=== PATIENT | female | born 1960 | race Caucasian/White ===

== ENCOUNTER 2023-02-07 15:34 | Inpatient (IN) | payer MEDICAID, SELFPAY ==
[2023-02-07] VITALS (35 sets, daily range): BP systolic 43–162; BP diastolic 31–131; PULSE 56–157; RESP 13–33; TEMP 36.8–37.4; O2SAT 87–100; BMI 24.3
--- OUTSIDE RECORDS SUMMARY | 2023-02-07 15:30 | XMS RPT_ITS | CCD ---
Author Name Unknown Address [address] [place] [address] Organization [facility] Care Team Providers Care Supervisor Of Communications Name Role Phone DESTIN CAMERON Admitting Unavailable DESTIN CAMERON Attending Unavailable NONE, NONE Primary Care Unavailable DESTIN CAMERON Consulting Unavailable NONE, NONE Consulting Unavailable RETA CISNEROS Admitting Unavailable RETA CISNEROS Attending Unavailable MERY PATEL Referring Unavailable AMELIA RETA Devon Primary Care Unavailable MERY PATEL Consulting Unavailable PROVIDER, UNKNOWN Consulting Unavailable PROVIDER, UNKNOWN Consulting Unavailable PROVIDER, UNKNOWN Consulting Unavailable SINCERE SHETTY CNP Admitting Unavailable SINCERE SHETTY CNP Attending Unavailable SINCERE SHETTY CNP Primary Care Unavailable MERY PATEL Consulting Unavailable PROVIDER, UNKNOWN Consulting Unavailable PROVIDER, UNKNOWN Consulting Unavailable PROVIDER, UNKNOWN Consulting Unavailable YONG VALENZUELA MD Admitting Unavailable YONG VALENZUELA MD Attending Unavailable YONG VALENZUELA MD Primary Care Unavailable Allergies Allergy Classification Reported Allergen(s) Allergy Type Date of Onset Reaction(s) Facility (1 source) Penicillins Drug allergy (disorder) [facility] Repository (1 source) Sulfamethoxazole / Trimethoprim Drug Allergy [facility] Repository (1 source) metal; Translations: [metal] Propensity to adverse reactions (disorder) [facility] Repository Problems Problem Classification Problem Date Documented Da te Episodic/Chronic Abdominal pain (1 source) Pelvic and perineal pain; Translations: [Pelvic and perineal pain] Onset: 11-21-2019 Chronic obstructive pulmonary disease and bronchiectasis (1 source) Chronic obstructive pulmonary disease with (acute) exacerbation; Translations: [Chronic obstructive pulmonary disease with (acute) exacerbation] Onset: 11-21-2019 Chronic Disorders of lipid metabolism (1 source) Hyperlipidemia, unspecified; Translations: [Hyperlipidemia, unspecified] Onset: 11-21-2019 Chronic Nutritional deficiencies (1 source) Vitamin D deficiency, unspecified; Translations: [Vitamin D deficiency, unspecified] Onset: 11-21-2019 Chronic Other nutritional; endocrine; and metabolic disorders (1 source) Homocystinuria; Translations: [Homocystinuria] Onset: 11-21-2019 Chronic Results Test Name Value Interpretation Reference Range Facil ity Encounters Encounter Date Encounter Type Care Provider Facility Start: 11-21-2019 End: 11-21-2019 Patient encounter procedure YONG VALENZUELA [facility] Start: 03-11-2019 End: 03-11-2019 Emergency department patient visit RETA CISNEROS [facility] Start: 07-13-2018 End: 07-14-2018 [facility] Procedures Date Procedure Procedure Detail Performing Clinician Start: 03-11-2019 End: 03-11-2019 Microscopic examination of blood, culture RETA CISNEROS Payers Date Payer Category Payer Unknown [id number] 2.16.8 [id number] 1960 Unknown [id number] 2.16.84 [id number] 1960 Unknown [id number] 2.16.84 [id number] 1960 Unknown [id number] 2.16.84 [id number] Unknown [id number] Summary Purpose Family History No Family History Records FoundNo Family History Records FoundNo Family History Records Found Advance Directives No Advanced Directives Records FoundNo Advanced Directives Records FoundNo Advanced Directives Records Found Additional Source Comments INFORMATION SOURCE (unrecogn ized section and content) DATE CREATED AUTHOR AUTHOR'S ORGANIZ ATION 11/22/[address] [facility] DATE CREATED AUTHOR AUTHOR'S ORGANIZ ATION 11/30/2019 [facility] ([place]) FOR RECORDS PERTAINING TO PATIENTS WHO ARE OR HAVE BEEN ENROLLED IN A CHEMICAL DEPENDENCY/SUBSTANCEABUSE PROGRAM, SOME INFORMATION MAY BE OMITTED. This clinical summary was aggregated from multiple sources. Caution should be exercised in using it in the provision of clinical care. This summary normalizes information from multiple sources, and as a consequence, information in this document may materially change the coding, format and clinical context of patient data. In addition, data may be omitted in some cases. CLINICAL DECISIONS SHOULD BE BASED ON THE PRIMARY CLINICAL RECORDS. [facility] [employer] [facility]. provides no warranty or guarantee of the accuracy or completeness of information in this document.
--- NOTE | 2023-02-07 15:33 | HP.PCM.HOS_ITS ---
HPI - General General Date of Admission: 02/07/23 Date of Service: 02/07/23 Chief Complaint: Dyspnea HPI Narrative ADITI SMILEY, is a 62 F who presents PFS Allergy/AdvReac Type Severity Reaction Status Date / Time No Known Allergies Allergy Verified 02/07/23 16:25 Results Lab / Micro Data 02/07/23 17:00 02/07/23 17:00
--- NOTE | 2023-02-07 15:33 | PCM.HP.STD ---
HPI - General General Date of Admission: 02/07/23 Date of Service: 02/07/23 Chief Complaint: Dyspnea, recent UTI, worsening, respiratory distress with BIPAP at [facility]SH ED, transfer. HPI Narrative The patient is a 62 y/o F w/ PMHx: Tobacco use, COPD w/ Chronic Hypoxic Respiratory Failure (2L NC), HTN, Hx TIA who presents to the [facility] as direct admission from [facility] ED on 02/07/23 with history of several day history of upper respiratory type symptoms including mild cough, congestion, subjective fevers and chills as well as shortness of breath worse with exertion in addition to wheezing more notable over the last 24 hours with ill contacts in her home prompting eventual outside facility evaluation and upon arrival there initiation of BiPAP secondary to concern of respiratory distress. Workup at outside facility included vital signs heart rate 100, BP 131/75, respiratory rate 24, 98% on BiPAP with FiO2 35%, CBC with WBC 15, hemoglobin 15, hematocrit 46, platelet 376, BMP with sodium 130, BUN/creatinine 24/0.8, BNP 910, troponin initial normal, EKG with sinus tachycardia with no acute evidence of ischemia, lactic acid initially 2.1 with most recent repeat prior to her transfer 1.4, VBG obtained with pH noted to be 7.3, CTPA with no evidence of PE with emphysematous changes with bilateral airspace disease with a consolidation bilaterally, negative and COVID flu however this appears to potentially have been Omar. Upon transition to [facility] patient was noted to be tachypneic, encephalopathic with evident respiratory status decline and from discussion with transport she had been transition from BiPAP to outside facility to CPAP on route. Patient was immediately transition back to BiPAP but was significantly concerning and did discuss immediately with family preference to transition to the ICU and intubate her. They were extremely reticent as they noted concerns about ability to have her extubated and requested specifically that we continue to trial BiPAP. Discussed plan of care to transfer to the ICU from PCU given her status upon arrival from outside facility and continue aggressive BiPAP therapy with ABG being obtained at that point and that if she did not improve or worsened would necessitate immediate intubation and that it could not wait further to which they were amenable. [facility] Medical History Chronic respiratory failure COPD (chronic obstructive pulmonary disease) History of TIA (transient ischemic attack) HTN (hypertension) Tobacco use Allergy/AdvReac Type Severity Reaction Status Date / Time No Known Allergies Allergy Verified 02/07/23 16:25 Family History (Updated 02/07/23 @ 19:[address] Love Vilchis MD) Mother CVA (cerebral vascular accident) Heart disease Hypertension Father Hypertension Heart disease CVA (cerebral vascular accident) Surgical History (Updated 02/07/23 @ 19:[address] Love Vilchis MD) History of tonsillectomy and adenoidectomy S/P appendectomy Social History (Updated 02/07/23 @ 19:[address] Love Vilchis MD) household members: significant other and family Smoking Status: Former smoker how long ago did patient quit smoking: Quit 1 wk prior, smoked 1/2-1.5 ppd since teen. alcohol intake: never substance use type: does not use ROS Review of Systems ROS Unobtainable: due to encephalopathy Physical Exam Narrative Physical Examination: General: Awakens minimally to stimuli, not markedly alert, unable to answer any orientation questions, following some commands but completely encephalopathic, seated upright in the PCU bed, BiPAP being placed. Skin: Normal color, normal turgor, no icterus, no cyanosis except very staged abrasions, occasional staged ecchymoses, significant intertrigo and poor hygiene noted. HEENT: AT/NC, EOM unable to be assessed well given encephalopathy, PERRLA, dry MM, lack of dentition, no carotid bruits, no marked JVD discerned, BiPAP being placed. Lungs: Diffusely diminished, tight, greater bases, mild crackles left base, occasional expiratory wheeze, increased respiratory rate, notes of respiratory distress. Heart: Tachycardic with regular rhythm; no gallop, rub audible. Abdomen: Soft, NTTP, ND, hypoactive BS, no HSM. Extremities: No cyanosis, clubbing, or edema. Neurological: Awakens minimally to stimuli, not markedly alert, unable to answer any orientation questions, following some commands but completely encephalopathic, seated upright in the PCU bed, BiPAP being placed, cognitive function not baseline intact; pupils equally reactive to light and accommodation, cranial nerves difficult to assess given encephalopathy, moving all extremities spontaneously, strength severely globally decreased. Psychiatric: Affect appears fatigued, lethargic, evident respiratory distress and encephalopathy, no acute evidence of depressive or anxiety feelings. Results Lab / Micro Data 02/07/23 17:00 02/07/23 17:00 Assessment & Plan Assessment/Plan (1) COPD exacerbation: (2) Acute hypoxemic respiratory failure: PLAN: Plan The patient is a 62 y/o F w/ PMHx: Tobacco use, COPD w/ Chronic Hypoxic Respiratory Failure (2L NC), HTN, Hx TIA who presents to the [facility] as direct admission from [facility] ED on 02/07/23 with history of several day history of upper respiratory type symptoms including mild cough, congestion, subjective fevers and chills as well as shortness of breath worse with exertion in addition to wheezing more notable over the last 24 hours with ill contacts in her home prompting eventual outside facility evaluation and upon arrival there initiation of BiPAP secondary to concern of respiratory distress. #1. Acute hypoxic respiratory failure on chronic hypoxic respiratory failure secondary to Acute on chronic COPD exacerbation with questionable overload versus possible underlying acute viral syndrome with possible concurrent overlapping superimposed bacterial pneumonia: Arrived to the PCU and was immediately seen therefore we will transition and admit to the ICU given HPI as noted, will continue BiPAP, continue ATC duonebs, PRN albuterol, IV methylprednisolone, will maintain on IV azithromycin and IV Rocephin, HOB, IS parameters, will obtain sputum Cx, respiratory viral panel, procalcitonin given concerns, assistant facility manager will be consulted and notified, currently awaiting ABG and will repeat in 1 hour. Patient did have outside BNP that was elevated 910 thus we will continue to monitor and low threshold to pulse dose with IV Lasix. In the interim we will only judiciously hydrate given concerns this could be overload as well. #2. Hypertension: Awaiting clarification of home medications and if appropriate will continue, PRN hydralazine. #3. Tobacco Abuse: Encouraged cessation, inpatient consultation per RT, NR if desired. #4. History of TIA: We will continue aspirin, clarifying if on statin or hypertensive regimen, currently patient unable to give history. #5. Intertrigo: Notable intertrigo in skin folds, will initiate nystatin therapy. #6. DVT prophylaxis: Lovenox. #7. CODE status: Patient does not have healthcare power of commercial attorney or living will in place but her children who are present would be decision-makers as well as her brother who is present. Discussed CODE status at length including difference between FULL code, DNR-CCA and DNR-CC status. Following discussions about the differences in these status, requested Full Code status. Advanced Care Planning Face to Face Time: 16 minutes. Charges/Coding Visit Charges Inpatient E&M: 91206 Init Hosp L3 Procedures Hospitalists Procedures: 46611 Advncd Care Plan 30 Min
--- OUTSIDE RECORDS SUMMARY | 2023-02-07 15:54 | XMS RPT_ITS | CCD ---
Author Name Unknown Address [address] [place] [address] Organization [facility] Care Team Providers Care Molding Engineer Name Role Phone DESTIN CAMERON Admitting Unavailable [...] Facility (1 source) Penicillins Drug allergy (disorder) [facility] Repository (1 source) Sulfamethoxazole / Trimethoprim Drug Allergy [facility] Repository (1 source) metal; Translations: [metal] Propensity to adverse reactions (disorder) [facility] Repository Problems Problem Classification Problem Date Documented [...] End: 11-21-2019 Patient encounter procedure YONG VALENZUELA [facility] Start: 03-11-2019 End: 03-11-2019 Emergency department patient visit RETA CISNEROS [facility] Start: 07-13-2018 End: 07-14-2018 [facility] Procedures Date Procedure Procedure Detail Performing Clinician Start: 03-11-2019 End: 03-11-2019 Microscopic examination of blood, culture RETA CISNEROS Payers Date Payer Category Payer Unknown [id number] 2.16.8 [id number] 1960 Unknown [id number] 2.16.84 [id number] 1960 Unknown [id number] 2.16.84 [id number] 1960 Unknown [id number] 2.16.84 [id number] Unknown [id number] Summary Purpose Family History No Family History Records FoundNo Family History Records FoundNo Family History Records Found Advance Directives No Advanced Directives Records FoundNo Advanced Directives Records FoundNo Advanced Directives Records Found Additional Source Comments INFORMATION SOURCE (unrecogn ized section and content) DATE CREATED AUTHOR AUTHOR'S ORGANIZ ATION 11/22/2019 [facility] DATE CREATED AUTHOR AUTHOR'S ORGANIZ ATION 11/30/2019 [facility] ([place]) FOR RECORDS PERTAINING TO [...] BE BASED ON THE PRIMARY CLINICAL RECORDS. [facility] [employer] [facility]. provides no warranty or guarantee of the accuracy or completeness of information in this document.
--- OUTSIDE RECORDS SUMMARY | 2023-02-07 15:56 | XMS RPT_ITS | CCD ---
Author Name Unknown Address [address] [place] [address] Organization [facility] Care Team Providers Care Coding Clerk Name Role Phone DESTIN CAMERON Admitting Unavailable [...] Facility (1 source) Penicillins Drug allergy (disorder) [facility] Repository (1 source) Sulfamethoxazole / Trimethoprim Drug Allergy [facility] Repository (1 source) metal; Translations: [metal] Propensity to adverse reactions (disorder) [facility] Repository Problems Problem Classification Problem [...] End: 11-21-2019 Patient encounter procedure YONG VALENZUELA [facility] Start: 03-11-2019 End: 03-11-2019 Emergency department patient visit RETA CISNEROS [facility] Start: 07-13-2018 End: 07-14-2018 [facility] - Live Procedures Date Procedure Procedure Detail Performing Clinician Start: 03-11-2019 End: 03-11-2019 Microscopic examination of blood, culture RETA CISNEROS Payers Date Payer Category Payer Unknown [id number] 2.16.8 [id number] 1960 Unknown [id number] 2.16.84 [id number] 1960 Unknown [id number] 2.16.84 [id number] 1960 Unknown [id number] 2.16.84 [id number] Unknown [id number] Summary Purpose Family History No Family History Records FoundNo Family History Records FoundNo Family History Records Found Advance Directives No Advanced Directives Records FoundNo Advanced Directives Records FoundNo Advanced Directives Records Found Additional Source Comments INFORMATION SOURCE (unrecogn ized section and content) DATE CREATED AUTHOR AUTHOR'S ORGANIZ ATION 11/22/2019 [facility] DATE CREATED AUTHOR AUTHOR'S ORGANIZ ATION 11/30/2019 [facility] ([place]) FOR RECORDS PERTAINING TO PATIENTS [...] BE BASED ON THE PRIMARY CLINICAL RECORDS. [facility] [employer] [facility]. provides no warranty or guarantee of the accuracy or completeness of information in this document.
[2023-02-07 16:02] LABS: Allen Test Positive; Base Excess 4 mmol/L (-2 to +2); Bicarbonate 31.7 mmol/L (22-26); Blood Gas Specimen Type ART; Comment 26/14; Mode avaps; O2 Delivery Device BiPAP; PEEP 12; PO2 142 mmHG (75-100); RR 12; SITE L Radial; SO2 99 % (95-99); Time Given 15:58:14; Total Carbon Dioxide 34 mmol/L; pCO2 73.5 mmHg (35-45); pH 7.24 (7.35-7.45)
--- OUTSIDE RECORDS SUMMARY | 2023-02-07 16:04 | XMS RPT_ITS | CCD ---
Author Name Unknown Address [address] [place] [address] Organization [facility] Care Team Providers Care Building Code Inspector Name Role Phone DESTIN CAMERON Admitting Unavailable [...] Facility (1 source) Penicillins Drug allergy (disorder) [facility] Repository (1 source) Sulfamethoxazole / Trimethoprim Drug Allergy [facility] Repository (1 source) metal; Translations: [metal] Propensity to adverse reactions (disorder) [facility] Repository Problems Problem Classification Problem Date Documented [...] End: 11-21-2019 Patient encounter procedure YONG VALENZUELA [facility] Start: 03-11-2019 End: 03-11-2019 Emergency department patient visit RETA CISNEROS [facility] Start: 07-13-2018 End: 07-14-2018 [facility] Live Procedures Date Procedure Procedure Detail Performing Clinician Start: 03-11-2019 End: 03-11-2019 Microscopic examination of blood, culture RETA CISNEROS Payers Date Payer Category Payer Unknown [id number] 2.16.8 [id number] 1960 Unknown [id number] 2.16.84 [id number] 1960 Unknown [id number] 2.16.84 [id number] 1960 Unknown [id number] 2.16.84 [id number] Unknown [id number] Summary Purpose Family History No Family History Records FoundNo Family History Records FoundNo Family History Records Found Advance Directives No Advanced Directives Records FoundNo Advanced Directives Records FoundNo Advanced Directives Records Found Additional Source Comments INFORMATION SOURCE (unrecogn ized section and content) DATE CREATED AUTHOR AUTHOR'S ORGANIZ ATION 11/22/2019 [facility] DATE CREATED AUTHOR AUTHOR'S ORGANIZ ATION 11/30/2019 [facility] ([place]) FOR RECORDS PERTAINING TO [...] BE BASED ON THE PRIMARY CLINICAL RECORDS. [facility] [employer] [facility]. provides no warranty or guarantee of the accuracy or completeness of information in this document.
--- NOTE | 2023-02-07 16:14 | PN.HOSP_ITS ---
Hospitalist Note Intubation Note: Patient with evidence of respiratory and/or impending distress. Medications administered: Etomidate 20 mg, Versed 2 mg ETT size: 7.0 Patient intubated in standard fashion with visualization of the vocal cords and passage of the ETT. Positioning verified with auscultation. Post-intubation CXR requested. Will initiate sedation with fentanyl and propofol. Will obtain AM CXR repeat. Designated Broker will be contacted about patient's status change. Procedures Hospitalists Procedures: [id number] Insert Emergency Airway
[2023-02-07] MEDS: Etomidate 20 MG/10 ML Vial IV (16:35)
[2023-02-07] MEDS: Midazolam 2 MG/2 ML Syringe 4 MG IV (16:36)
--- NOTE | 2023-02-07 16:46 | NURSING ---
1605: Patient arrived from PCU on bipap in respiratory distress, in and out of consciousness. 1613: Dr. Vilchis notifed that patient is declining quickly and needs to be intubated. Family updated at this time as well by this RN. Dr. Vilchis gave orders to prepare for intubation. 1630: Dr. Vilchis at bedside 1635: 20mg Etomidate and 2mg Versed given 1637: Successful intubation by Dr. Vilchis, 7.0 ETT, 23 at the lip, + color change, bilat. breath sounds. OGT inserted and verified w/ air bolus. 1640: BP dropped and NS bolus started per Dr. Vilchis order, BP improved. 1646: BP stable, HR noted to begin dropping quickly to 50's, patients skin color appears blue/stephens, ELECTRONICS INSTRUCTOR called. HR continued to drop lower and was unable to palpate a carotid or femoral pulse, CODE BLUE called, SEE CODE DOCUMENTATION.
--- NOTE | 2023-02-07 16:50 | PCM.HOSP.N ---
Hospitalist Note CODE BLUE note: CODE BLUE called at 1646 with patient noted to have onset of bradycardia which worsened then became unresponsive with VT and then pulseless cardiac arrest with chest compressions is initiated and patient administered epinephrine. Upon immediate hospitalist arrival rhythm check at time with noted V-fib with shock initiated. Patient was administered epinephrine per ACLS guidelines. Patient was administered aggressive IV fluids. Bicarb amp was administered. CBC, CMP, troponin, magnesium, phosphorus, lactic acid, admission labs were all requested to be obtained stat. Additional access was placed peripherally. Given arrhythmia amiodarone bolus was administered and drip requested. ROSC was achieved at 1650 with noted sinus tachycardia on monitor. At that time EKG was obtained with significant changes from outside initial with evidence of ST elevation with concern for STEMI with notable elevations V2, V3, V4. Immediate STEMI call was initiated and cardiology was consulted and contacted with an image relayed to them. They requested given the fact that this was a CODE STATUS with ROSC preference to evaluate the patient first but did request heparin bolus and drip initiated, Plavix load with 600 mg, aspirin therapy all of which was administered. During this time with attempts for sedation patient did have onset of hypotension and despite temporarily hold on sedation discontinued and patient biting and coughing with the vent. Decision was made to place central line. Central line placement note: Patient with ongoing hypotension despite aggressive IVF administration attempts, per ICU staff note. Given MAP not maintaining >65, discussed with family and they were amenable to central line placement to initiate pressor therapy. Patient right neck was cleaned and region prepped and draped in standard fashion. US guidance used to obtain access, guidewire threaded without issue, central line catheter placed over guidewire and wire removed w/ cap placed. Lines again drawn and flushed without difficulty. Central line sutured in place. CXR ordered and preliminarily review of film with appropriate positioning. Following centerline mary grace splint and BP improvement discussion with the cardiology with at that time decision for aside from chest x-ray CTPA to assure no other source for this presentation. Repeat EKG was obtained at this time and was significantly improved with no ST elevations. Cardiology noted some concern that possibly epinephrine could be responsible for her previous changes but decision to continue with cardiac catheterization at that time. Patient now being transitioned from CT lab to cardiac Staff Developer. Critical Care Time: 105 minutes, time from 16:45-18:30, were spent addressing patients acute status decline as noted, review of all data in collaboration with care team in addition to discussion with family. Procedures Hospitalists Procedures: Other Procedure - See Report (Critical care time: 1 hour 72541 and additional 45 minutes [id number] x 1.)
--- NOTE | 2023-02-07 17:11 | ECHOCS_ITS ---
Reason For Study: Arrhythmia Procedure This was a 2D Doppler, Color Flow transthoracic echocardiogram. Contrast injection was performed. Exam performed portable in ICU/CCU. Left Ventricle Normal size and thickness. Severe LV systolic dysfunction with severe anterior and apical hypokinesis to akinesis. Estimated ejection fraction 15 to 20%. Right Ventricle Small right ventricle. Atria The left and right atria are normal. Mitral Valve Mild (1+) mitral valve insufficiency. Tricuspid Valve Trivial tricuspid valve insufficiency. Unable to estimate RV systolic pressure due to insufficient tricuspid regurgitant envelope. Aortic Valve Trisinus/trileaflet aortic valve. Pulmonic Valve The pulmonic valve is not well visualized. Great Vessels Normal sized aortic root. Pericardium/Pleural Moderate sized anterior pericardial effusion, consider clot. Medication Diluted definity 1.5ml given slow IV push to enhance endocardial definition. MMode/2D Measurements & Calculations LVIDd: 4.8 cm IVSd: 0.58 cm Ao root diam: 2.5 cm LVIDs: 3.2 cm LVPWd: 0.70 cm RVDd: 1.7 cm FS: 32.2 % LAV(MOD-bp): 22.9 ml LVAd ap4: 24.4 cm2 SV(MOD-sp4): 17.5 ml LAV(MOD-bp) Indexed: 15.0 ml/m2 LVLd ap4: 7.0 cm LAV(MOD-sp2): 27.4 ml EDV(MOD-sp4): 70.2 ml LAV(MOD-sp4): 19.8 ml EDV(sp4-el): 71.6 ml LVAs ap4: 20.2 cm2 LVLs ap4: 6.4 cm ESV(MOD-sp4): 52.7 ml ESV(sp4-el): 54.6 ml EF(MOD-sp4): 24.9 % EF(sp4-el): 23.7 % SV(sp4-el): 17.0 ml LA A4 area: 10.1 cm2 LA dimension(2D): 2.8 cm RA A4 area: 3.7 cm2 TAPSE: 1.7 cm Time Measurements MV dec time: 0.14 sec Doppler Measurements & Calculations MV E max robert: 53.6 cm/sec Lat Peak E' Robert: 3.9 cm/sec Med Peak E' Robert: 3.5 cm/sec MV A max robert: 84.6 cm/sec E/E' lat: 13.9 E/E' med: 15.1 MV E/A: 0.63 MV dec slope: 392.3 cm/sec2 Ao V2 max: 106.3 cm/sec LV V1 max: 90.4 cm/sec Ao max P.5 mmHg LV V1 max P.3 mmHg Ao V2 mean: 70.4 cm/sec Ao mean P.3 mmHg Ao V2 VTI: 16.9 cm [facility] max: 58.9 cm/sec
[2023-02-07 17:12] LABS: Absolute Lymphocyte Count 1.22 X10^3/uL (0.83-4.51); Absolute Neutrophil Count 8.1 X10^3/uL (2.0-7.7); Basophil# 0.07 X10^3/uL; Basophil% 0.6 % (0-1); Hematocrit 39.8 % (37-47); Hemoglobin 11.7 g/dL (12.0-15.0); Lymphocyte # 1.22 X10^3/ul (0.83-4.51); Lymphocyte % 11.2 % (19-41); Mean Corp Hgb Conc 29.4 g/dL (32-36); Mean Corpuscular Hgb 28.5 pg (27.0-32.0); Mean Corpuscular Volume 96.8 fL (81-99); Monocyte# 0.87 X10^3/uL; NRBC Flagged by Analyzer 0.2 % (0-5); Neutrophil % 74.2 % (47-70); POSITIVE COUNT YES; POSITIVE MORPHOLOGY YES; Platelet Count 279 K/mm3 (150-450); RBC Distribution Width CV 12.6 % (11.6-14.6); Red Blood Count 4.11 M/mm3 (4.2-5.4); White Blood Count 10.9 K/mm3 (4.4-11.0)
[2023-02-07 17:14] LABS: Differential Indicated SCAN CRITERIA MET
[2023-02-07] MEDS: fentaNYL drip 100 ML 2.5 MCG CONT INF (17:15)
[2023-02-07] MEDS: Propofol 10MG/Ml 1,000 MG/100 ML Bottle 1.69999999999999996 MG CONT INF (17:15)
--- NOTE | 2023-02-07 17:30 | NURSING ---
Dr. Vilchis emergently placing central line
[2023-02-07 17:34] LABS: Procalcitonin 0.21 ng/mL (0.00-0.09)
[2023-02-07 17:36] LABS: Platelet Estimate ADEQUATE (ADEQ); Red Cell Morphology N CYTIC NORMAL (NORM C&C)
[2023-02-07 17:38] LABS: ALB/GLOB Ratio 0.4 RATIO (0.9-2.4); AST(SGOT) 72 U/L (15-37); Alanine Aminotransfer ALT/SGPT 27 U/L (13-56); Albumin, Serum 1.7 g/dL (3.2-5.0); Alkaline Phosphatase 72 U/L (45-117); Anion Gap 6 (5-15); BUN 21 mg/dL (7-18); BUN/Creat Ratio 20.4 RATIO (10-20); Calcium,Total 7.6 mg/dL (8.5-10.1); Chloride 97 mmol/L (98-107); Creatinine, Serum 1.03 mg/dL (0.55-1.02); EST Glomerular Filtration Rate 58 mL/min (>60); Est Glom Filt Rate - Afr Amer 70 mL/min (>60); Globulin 3.9 g/dL (2.2-4.2); Glucose 227 mg/dL (74-106); Magnesium 2.5 mg/dL (1.6-2.6); Potassium 4.6 mmol/L (3.5-5.1); Protein, Total 5.6 g/dL (6.4-8.2); Sodium Level 138 mmol/L (136-145)
--- NOTE | 2023-02-07 17:41 | CT_ITS ---
EXAM: CT ANGIOGRAPHY CHEST WITHOUT AND WITH INTRAVENOUS CONTRAST CLINICAL INDICATION: r/o pneumo/PE TECHNIQUE: Helically acquired angiography images were obtained of the chest without and with intravenous contrast. This CT exam was performed using one or more of the following dose reduction techniques: automated exposure control, adjustment of the mA and/or kV according to patient size, and/or use of iterative reconstruction technique. MIP reconstructed images were created and reviewed. CONTRAST: IV 75mL Isovue-370 RADIATION DOSE: CTDIvol = 12.38 mGy, DLP = 463.52 mGy-cm COMPARISON: No relevant prior studies available. FINDINGS: LIMITATIONS: Exam is limited by improper positioning of patient''s arms resulting in significant streak artifact. PULMONARY ARTERIES: Unremarkable. Normal in caliber. No evidence of pulmonary embolism. AORTA: Unremarkable. Normal in caliber. No evidence of dissection. GREAT VESSELS OF AORTIC ARCH: Unremarkable. Normal in caliber. No evidence of dissection. LUNGS AND PLEURAL SPACES: Marked hyperexpansion of the lungs consistent with severe underlying COPD. Severe centrilobular emphysema. Extensive superimposed infiltrate throughout the lingula and basal segments of the left lower lobe. Similar but much milder pulmonary opacities in the right middle lobe and lung bases. Diffuse lower lobe bronchial wall thickening consistent with bronchitis. Pleural thickening along the posterior medial lower left hemithorax may be adjacent atelectasis or infiltrate, but neoplasm is not excluded and follow-up will be recommended. No pneumothorax. HEART: Unremarkable. Heart size is normal. No pericardial effusion. Moderate coronary artery calcifications. MEDIASTINUM: Abnormal soft tissue density in the lower posterior mediastinum most likely esophageal thickening and/or hiatal hernia. No mediastinal or hilar adenopathy. THYROID: Unremarkable. No thyroid lesions. BONES/JOINTS: Degenerative changes throughout the spine. No definite fractures. No suspicious lytic or blastic abnormality. TUBES, LINES AND DEVICES: Endotracheal tube terminates 1.4 cm above the sapna. Suggest repositioning to a 3 cm proximally. Nasogastric tube passes through the esophagus into the stomach. CT/CTA Chest W/WO Contrast IMPRESSION: 1. Severe COPD. 2. Probable superimposed acute inflammatory changes of the mid and lower lung myers bilaterally much worse on the left. 3. Bronchitis of the lower lung myers. 4. Probable pleural thickening along the medial posterior lower left hemithorax but mass cannot be excluded. Recommend follow-up in 3-6 months. Electronically Signed: Kumar Zhou MD at 19:07 EST ,
--- NOTE | 2023-02-07 17:45 | RAD_ITS ---
STUDY: X-RAY CHEST REASON FOR EXAM: Female, 62 years old. oet/og and central line placement TECHNIQUE: Single AP portable view of the chest. COMPARISON: CT scan of earlier today. FINDINGS: Endotracheal tube terminates approximately 2 cm above the sapna. Suggest repositioning 2 to 3 cm proximally. Right IJ line terminates just above the level of the right hilum. Nasogastric tube is seen entering the distal stomach, the tip is not seen. Severe hyperexpansion lungs consistent with COPD. Prominent infiltrates in the mid and lower left lung. RAD/CXR for Line Placement IMPRESSION: Lines and tubes as described. COPD and left-sided infiltrates. See the report of the CT scan performed one hour later which is a far better exam. Electronically Signed: Kumar Zhou MD at 19:09 EST ,
[2023-02-07] MEDS: Aspirin 300 MG Suppository RC (17:52)
[2023-02-07] MEDS: Clopidogrel Bisulfate 300 MG Tablet 600 MG GT (17:53)
[2023-02-07] MEDS: Amiodarone 360 MG in Dextrose 5% Viaflo Bag 192.8 ML 33.2999999999999972 MG CONT INF (17:53)
[2023-02-07 17:57] LABS: Phosphorus 3.6 mg/dL (2.5-4.9); Thyroid Stim Hormone (TSH) 0.27 uIU/mL (0.358-3.74); Troponin-I HS 468 pg/mL (3.0-54.0)
[2023-02-07 17:59] LABS: CPK Total, Creatine Kinase 324 U/L (26-192); Triglycerides 121 mg/dL
[2023-02-07] MEDS: Norepinephrine 8 MG in 0.9% Normal Saline (250mL Bag) 242 ML 9.40000000000000036 MG CONT INF (18:00)
[2023-02-07 18:02] LABS: Allen Test Positive; Base Excess 3 mmol/L (-2 to +2); Bicarbonate 28.9 mmol/L (22-26); Blood Gas Specimen Type ART; Mode AC; O2 Delivery Device Adult Vent; PEEP 8; PO2 254 mmHG (75-100); RR 14; SITE R Brach; SO2 100 % (95-99); Total Carbon Dioxide 31 mmol/L; pCO2 55.4 mmHg (35-45); pH 7.33 (7.35-7.45)
[2023-02-07] MEDS: Heparin Injection (Vial) 5,000 UNIT/ML VIAL 4000 UNIT IV (18:04)
[2023-02-07] MEDS: HEPARIN/D5w 25,000 UNITS 25,000 UNITS/250 ML IV.SOLN. 8 UNITS CONT INF (18:05)
--- NOTE | 2023-02-07 18:10 | NURSING ---
To CT at this time with RN, COMPUTER BUILDER and RT
[2023-02-07 18:25] LABS: International Normalized Ratio 1.1; Partial Thromboplast Time 30.5 Seconds (24.1-36.2)
--- NOTE | 2023-02-07 18:44 | CON.PCM.CA_ITS ---
Assessment & Plan Assessment/Plan (1) Cardiac arrest: PLAN: Is likely due to acute hypoxemic respiratory failure/COPD exacerbation with lactic acidosis. Repeat EKG after patient is stable showed normal sinus rhythm with no acute ST-T wave changes. Preliminary CT review by myself showed no acute major PE noted. However there was significant left lung infiltrates concerning for pneumonia Follow-up on the CTA report Patient was loaded with aspirin and Plavix Continue heparin drip Continue amiodarone drip Start patient on high intensity statin. Obtain echocardiogram Will proceed with emergent left heart catheterization for further donation of coronary anatomy. Continue treatment of acute COPD exacerbation and hypoxemic respiratory failure as per primary team. Continue rest of management as per critical care team. (2) Acute hypoxemic respiratory failure: (3) NSTEMI (non-ST elevated myocardial infarction): (4) COPD exacerbation: HPI Consult Data Date of Consult: 02/07/23 HPI Narrative Reason for Consultation: Cardiac arrest HPI Narrative: ADITI SMILEY, is a 62 F who presents with acute respiratory failure. Patient is sedated, intubated on mechanical ventilation so HPI is according to medical team. A 62-year-old female patient with past medical history of COPD on home oxygen, hypertension and TIA who presented to outside facility with shortness of breath and picture of COPD exacerbation. Patient was transferred to [facility] for further management. Patient was admitted to PCU floor, while she was on PCU floor she was on CPAP, she was hypoxemic and she looked stephens so decision was to move her to the ICU. Upon arrival to the ICU patient was severely hypoxemic so she was intubated. Right after intubation patient coded. Reported code was initially VT and possible V-fib, patient received epi and 1 round of CPR then ROSC was achieved she was also given amiodarone. EKG right after achieving ROSC showed normal sinus rhythm with subtle transient ST elevation in V2 and V3 with no reciprocal changes. Repeat EKG showed normal sinus rhythm with no acute ST-T wave changes. Patient was hypotensive so central line was placed. Patient is currently on propofol, fentanyl and Levophed at 10 mics. She is currently on mechanical ventilation. Troponins came back elevated at 468. Mechanical Product Engineer was activated and cardiology was consulted to proceed with left heart catheterization. Chest x-ray showed diffuse bilateral infiltrates. CT chest PE protocol was done, there is no report yet, however upon my review to the CT there is no major PE noted. There is significant left lung infiltrate which looks like pneumonia. PFSH Allergy/AdvReac Type Severity Reaction Status Date / Time No Known Allergies Allergy Verified 02/07/23 16:25 ROS ROS Narrative Unobtainable as the patient is sedated, intubated on mechanical ventilation. Physical Exam Const Constitutional Narrative: Patient appears sick, she is sedated, intubated on mechanical ventilation HEENT normocephalic and head/scalp atraumatic Eyes PERRL and conjunctivae normal Chest inspection of chest normal and palpation of chest normal Resp Resp Narrative: She is on mechanical ventilation, good air entry bilaterally Auscultation: Negative for crackles or rales Cardio regular rate, regular rhythm, S1 normal heart sound and S2 normal heart sound Extremity normal to inspection and no pedal edema Skin no rashes or lesions noted and no wounds Neuro Neuro Narrative: Unable to assess as the patient is sedated, intubated on mechanical ventilation Psych Psych Narrative: Unable to assess Risk Stratification Risk Stratification Applicable: No Objective Data Vital Signs: Vital Signs Temp Pulse Resp BP Pulse Ox O2 Del Method FiO2 98.2 F 110 H 14 72/56 L 96 Bi-pap 100 02/07/23 15:36 02/07/23 16:37 02/07/23 16:37 02/07/23 18:00 02/07/23 16:37 02/07/23 15:40 02/07/23 16:37 Oxygen Delivery Method Bi-pap Weight: 124 lb 5.451 oz Body Mass Index (BMI) 24.3 Lab / Micro Data 02/07/23 17:00 02/07/23 17:00 Labs: Laboratory Results - last 24 hr 02/07/23 17:00: WBC 10.9, RBC 4.11 L, Hgb 11.7 L, Hct 39.8, MCV 96.8, MCH 28.5, MCHC 29.4 L, RDW Std Deviation 45.0 H, RDW Coeff of Angie 12.6, Plt Count 279, MPV 11.0, Immature Gran % (Auto) 6.000 H, Neut % (Auto) 74.2 H, Lymph % (Auto) 11.2 L, Lanier % (Auto) 8.0, Eos % (Auto) 0.0, Baso % (Auto) 0.6, Absolute Neuts (auto) 8.1 H, Absolute Lymphs (auto) 1.22, Nucleated RBC % 0.2, Platelet Estimate ADEQUATE, RBC Morphology N CYTIC, Sodium 138, Potassium 4.6, Chloride 97 L, Carbon Dioxide 35.0 H, Anion Gap 6, BUN 21 H, Creatinine 1.03 H, Estim Creat Clear Calc 41.20, Est GFR (MDRD) Af Amer 70, Est GFR (MDRD) Non-Af 58 L, BUN/Creatinine Ratio 20.4 H, Glucose 227 H, Lactic Acid 5.0 H*, Calcium 7.6 L, Phosphorus 3.6, Magnesium 2.5, Total Bilirubin 0.10 L, AST 72 H, ALT 27, Alkaline Phosphatase 72, Total Creatine Kinase 324 H, Troponin I High Sens 468 H*, Total Protein 5.6 L, Albumin 1.7 L, Globulin 3.9, Albumin/Globulin Ratio 0.4 L, Triglycerides 121, Procalcitonin 0.21 H, TSH 0.27 L, Free T4 1.10 02/07/23 18:00: PT 14.0, INR 1.1, APTT 30.5 ABG Data ABG results: ABG 02/07/23 02/07/23 15:55 17:58 Specimen Type ART ART Sample Site L Radial R Brach pH 7.24 L 7.33 L Bicarbonate Actual 31.7 H 28.9 H Total CO2 34 31 Base Excess 4 H 3 H O2 Saturation 99 100 H O2 % 70.0 100.0 ABG pCO2 73.5 H* 55.4 H ABG pO2 142 H 254 H Marvin Test Positive Positive Respiration Rate 12 14 O2 Delivery Device BiPAP Adult Vent Vent Mode avaps AC Tidal Volume 400.0 400.0 POC PEEP 12 8 Crit Call To/Read Back Yes Blood Gas Notified Whom carlos alberto Blood Gas Notified Time 15:58:14 Clinical Comments Cardiology Labs/Tests 02/07/23 15:55: pH 7.24 L, Bicarbonate Actual 31.7 H, Base Excess 4 H, O2 Saturation 99, ABG pCO2 73.5 H*, ABG pO2 142 H, Marvin Test Positive 02/07/23 17:00: WBC 10.9, RBC 4.11 L, Hgb 11.7 L, Hct 39.8, MCV 96.8, MCH 28.5, MCHC 29.4 L, Plt Count 279, MPV 11.0, Immature Gran % (Auto) 6.000 H, Neut % (Auto) 74.2 H, Lymph % (Auto) 11.2 L, Lanier % (Auto) 8.0, Eos % (Auto) 0.0, Baso % (Auto) 0.6, Absolute Neuts (auto) 8.1 H, Nucleated RBC % 0.2, Sodium 138, Potassium 4.6, Chloride 97 L, Carbon Dioxide 35.0 H, Anion Gap 6, BUN 21 H, Creatinine 1.03 H, Est GFR (MDRD) Af Amer 70, Est GFR (MDRD) Non-Af 58 L, BUN/Creatinine Ratio 20.4 H, Glucose 227 H, Lactic Acid 5.0 H*, Calcium 7.6 L, Phosphorus 3.6, Magnesium 2.5, Total Bilirubin 0.10 L, Triglycerides 121 02/07/23 17:58: pH 7.33 L, Bicarbonate Actual 28.9 H, Base Excess 3 H, O2 Saturation 100 H, ABG pCO2 55.4 H, ABG pO2 254 H, Marvin Test Positive 02/07/23 18:00: PT 14.0, INR 1.1, APTT 30.5 Rhythm: EKG: ECHO: Stress Test: Cardiac Cath: PCI: CT Surgery: Holter monitor: EPS: PPM: CXR: Chest CT Scan:
--- NOTE | 2023-02-07 19:34 | PCIREPORT_ITS ---
PCI Cardiac Cath Report PCI Report: DATE OF PROCEDURE: PROCEDURES PERFORMED: 1. Left heart catheterization 2. selective left and right coronary angiography. 3. Left ventriculography Indications FOR PROCEDURE: Cardiac arrest Complications: NONE Specimen: NONE Access: Right Radial Artery Hemostasis: TR band DESCRIPTION OF PROCEDURE: After informed consent was obtained, the patient was brought down to the greenskeeper laborer in a fasting state. Right wrist area was prepped, draped and sterilized in the usual fashion. Patient was already on sedation including fentanyl and propofol which was started while she was in the ICU. Using modified Seldinger technique, right radial artery was then cannulated. A 6-Vietnamese sheath was inserted, sheath was flushed. 5F JR4 catheter was used to engage the right coronary and 5f JL-3.5 catheter was used to engage Left coronary artery. Multiple orthogonal images were then taken. Pigtail catheter was used to cross the aortic valve, LV gram was done with the use of manual injection. Multiple hemodynamics were then obtained After reviewing angiogram, Wire and catheter were taken out. TR band was applied. The patient was sent to floor in stable condition. HEMODYNAMICS: LVEDP: 29 mmHg There was no significant gradient across arctic valve EF: 30 to 35% with mid to apical anterior wall, anteroapical, apical and inferoapical hypokinesis and hyperdynamic base, picture of stress-induced cardiomyopathy/Takotsubo cardiomyopathy DESCRIPTION OF CORONARY ANATOMY: The left main originates from the left coronary sinus of Valsalva in the usual fashion. There was good reflux of dye from this vessel into the coronary sinus, there was no ventriculization or dampening of pressure noted. The LM bifurcates into LAD and LCX . There was 40 to 50% stenosis of the distal left main The left anterior descending artery originates from the left main in the usual fashion. It runs in the anterior interventricular groove giving rise to large size diagonal branch and multiple septal perforators and continues distally to wrap around the apex. There was DIEGO-3 flow in the system however there was 80% stenosis in the proximal LAD at the bifurcation of large size diagonal artery. There was also a tandem lesion in the mid LAD of around 80 to 90% stenosis. Mid to distal LAD was diffusely diseased Diagonal artery: It was was a moderate to large-caliber vessel with 90% ostial stenosis however there was DIEGO-3 flow Left circumflex artery originates from the bifurcation in the usual fashion, then courses its way down the lateral atrioventricular groove, giving rise to 1 large-sized OM branch and continues distally as nondominant artery. There was DIEGO-3 flow in the system however there was eccentric stenosis involving the ostium and proximal part of the left circumflex artery of around 60 to 70%. 60 to 70% stenosis of the proximal part of the left circumflex artery RCA originates from the right coronary sinus of Valsalva in the usual fashion, There was good reflux if dye from this vessel into the coronary sinus, there was no ventriculization or dampening of pressure noted. It was dominant artery. It was COMPUTER SYSTEMS AUDITOR artery with 100% occluded in the proximal to mid part of it with robust oaup-ke-arsat collaterals. CONCLUSION: 1. 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 2. RCA COMPUTER SYSTEMS AUDITOR. 3. Moderately to severely depressed ejection fraction likely Takotsubo cardiomyopathy as detailed above Recommendations: Continue heparin drip. Continue with aspirin 81 mg daily. Start patient on high intensity statin. Obtain echocardiogram in a.m. Patient will need to be started on beta-teto and SHANNON inhibitor once blood pressure allows. Continue treating patient underlying condition with acute hypoxic respiratory failure, COPD exacerbation as per critical care team. Patient will need CT surgery evaluation for CABG Continue with aggressive medical therapy in the meantime
[2023-02-07] MEDS: Ipratropium/Albuterol Sulfate 3 ML AMPUL.NEB INHALATION (19:59)
[2023-02-07] MEDS: Ceftriaxone 1 GM/50 ML BAG IV (20:59)
[2023-02-07] MEDS: Azithromycin 500 MG in Dextrose 5%-Water (250mL Bag) 250 ML 250 MG IV (20:59)
[2023-02-07] MEDS: 0.9% Saline Lock 10 ML Syringe IV (21:00)
[2023-02-07] MEDS: Chlorhexidine 15 ML PO (21:00)
[2023-02-07] MEDS: 0.9% Normal Saline (250mL Bag) 250 ML 15 ML IV (21:01)
[2023-02-07] MEDS: Midazolam 50 MG in 0.9% Normal Saline (100mL Bag) 90 ML CONT INF (21:04)
[2023-02-07 21:09] LABS: Reflex Lactate? Y
[2023-02-07] MEDS: Miconazole Nitrate 43 GM Bottle 1 APPLIC TOPICAL (21:38)
[2023-02-07] MEDS: Insulin Lispro 100 UNIT/ML INSULN.PEN SC (21:38)
[2023-02-07] MEDS: Atorvastatin Calcium 80 MG Tablet PO (21:39)
[2023-02-07] MEDS: Pantoprazole Sodium 40 MG in 0.9% Normal Saline (100mL MB+) 100 ML 330 MG IV (21:46)
--- NOTE | 2023-02-07 22:02 | NURSING ---
pt arrived from medical lab technician at 1945 to icu room 4 resp at bedside and drips running at diprovan @10ml/hr, levophed @20ml/hr, fentanyl @50ml/hr, heparin drip off, amiodarone off,rass-2, soft restraints on bilat arms, family in waiting room
[2023-02-07 22:16] LABS: Bedside Glucose 269 mg/dL (74-106)
[2023-02-07 22:29] LABS: Hemoglobin A1c 5.3 % (3.8-5.6)
[2023-02-07] MEDS: CHLORHEXIDINE GLUC 2% CLOTH 1 EACH TOWELETTE TOPICAL (22:44)
[2023-02-07 22:48] LABS: Troponin-I HS 25872 pg/mL (3.0-54.0)
[2023-02-08] VITALS (58 sets, daily range): BP systolic 74–146; BP diastolic 53–86; PULSE 56–116; RESP 14–22; TEMP 36.9–37.9; O2SAT 92–98; BMI 24.7
[2023-02-08] MEDS: Amiodarone 360 MG in Dextrose 5% Viaflo Bag 192.8 ML 16.6999999999999993 MG CONT INF ×2 (02:52→15:08)
[2023-02-08] MEDS: 0.9% Saline Lock 10 ML Syringe IV ×4 (04:12→18:21)
[2023-02-08 04:40] LABS: Hematocrit 37.8 % (37-47); Hemoglobin 11.5 g/dL (12.0-15.0); Mean Corp Hgb Conc 30.4 g/dL (32-36); Mean Corpuscular Hgb 28.3 pg (27.0-32.0); Mean Corpuscular Volume 93.1 fL (81-99); Mean Platelet Vol. 10.9 fl (6.2-12.0); POSITIVE COUNT YES; POSITIVE MORPHOLOGY YES; Platelet Count 367 K/mm3 (150-450); RBC Distribution Width SD 44.5 fl (35.1-43.9); Red Blood Count 4.06 M/mm3 (4.2-5.4); White Blood Count 13.5 K/mm3 (4.4-11.0)
[2023-02-08 04:48] LABS: ALB/GLOB Ratio 0.6 RATIO (0.9-2.4); AST(SGOT) 402 U/L (15-37); Alanine Aminotransfer ALT/SGPT 142 U/L (13-56); Alkaline Phosphatase 62 U/L (45-117); Anion Gap 8 (5-15); BUN 30 mg/dL (7-18); BUN/Creat Ratio 24.8 RATIO (10-20); Chloride 97 mmol/L (98-107); Creatinine, Serum 1.21 mg/dL (0.55-1.02); EST Glomerular Filtration Rate 48 mL/min (>60); Est Glom Filt Rate - Afr Amer 58 mL/min (>60); Estimated Creatinine Clearance 35.07 ml/min; Globulin 3.6 g/dL (2.2-4.2); Glucose 224 mg/dL (74-106); Protein, Total 5.6 g/dL (6.4-8.2); Sodium Level 136 mmol/L (136-145)
[2023-02-08 04:55] LABS: Differential Indicated MANUAL DIFF
--- NOTE | 2023-02-08 04:55 | RAD_ITS ---
STUDY: X-RAY CHEST REASON FOR EXAM: Female, 62 years old. Cough with dyspnea. TECHNIQUE: Single frontal view of the chest. COMPARISON: February 07, 2023 FINDINGS: Stable support devices. Hyperinflation with increased opacity in the left lower lobe and in the right lower lobe medially. Slight increase in left pleural effusion. Normal size heart. Normal mediastinum and gino. Normal visualized pulmonary arteries. Normal visualized aortic arch and descending thoracic aorta. Normal visualized thoracic spine. Normal visualized ribs, clavicles, and shoulders. No abnormality of the visualized soft tissue structures of the upper abdomen. RAD/Chest 1 View (Portable) IMPRESSION: Radiographic worsening compatible with bibasilar pneumonia, left greater than right. No emergent finding. Electronically Signed: Lucian Resendiz MD at 14:11 EST ,
[2023-02-08 04:56] LABS: Partial Thromboplast Time 127.8 Seconds (24.1-36.2)
[2023-02-08 05:02] LABS: Troponin-I HS 23969 pg/mL (3.0-54.0)
[2023-02-08] MEDS: Miconazole Nitrate 43 GM Bottle 1 APPLIC TOPICAL ×3 (05:42→20:50)
[2023-02-08] MEDS: TITRATION PARAMETER CHANGE 1 EACH IV (05:42)
[2023-02-08] MEDS: Insulin Lispro 100 UNIT/ML INSULN.PEN SC ×3 (05:43→18:20)
[2023-02-08] MEDS: Norepinephrine 8 MG in 0.9% Normal Saline (250mL Bag) 242 ML 9.40000000000000036 MG CONT INF (05:46)
--- NOTE | 2023-02-08 06:00 | EX.PCM.CONCC ---
Assessment & Plan Assessment/Plan (1) COPD exacerbation: (2) NSTEMI (non-ST elevated myocardial infarction): (3) Acute hypoxemic respiratory failure: (4) Cardiac arrest: PLAN: Plan RECOMMENDATIONS: 1. Continue assist-control mode of mechanical ventilation. Wean FiO2 and PEEP to maintain oxygen saturations at or above 90%. 2. Continue Levophed to maintain a mean arterial pressure at or above 65 mmHg. 3. Continue antimicrobials and Tamiflu. 4. Continue scheduled bronchodilators and steroids. 5. Continue amiodarone and heparin infusion. 6. Continue appropriate GI prophylaxis. IMPRESSIONS: 1. Acute on chronic hypoxemic respiratory failure The patient has a baseline of reported COPD of unknown severity along with chronic hypoxemic respiratory failure with a baseline requirement of 2 L/min. She presented with worsening shortness of breath in the setting of influenza A and pneumococcal pneumonia. The patient was ultimately intubated. Plan to continue assist-control mode of mechanical ventilation and wean FiO2 and PEEP to maintain saturations at or above 90%. The patient will be continued on scheduled bronchodilators, steroids, antibiotics and Tamiflu. Okay to continue fentanyl for sedation. However, I would transition the patient from a Versed drip to Precedex. 2. Septic shock The patient presented to the hospital with sepsis due to influenza A and pneumococcal pneumonia with acute sepsis related organ dysfunction as evidenced by lactic acidemia and respiratory failure requiring invasive mechanical ventilatory support. The patient will be continued on vasopressor support to maintain a mean arterial pressure at or above 65 mmHg. Continue supportive care along with antimicrobials. 3. NSTEMI/cardiac arrest The patient's hospital course has been complicated by a V-fib cardiac arrest with successful ROSC. The patient underwent cardiac catheterization which revealed multivessel coronary disease, for which evaluation by CT surgery was recommended. Will defer the urgency with regard to her revascularization to cardiology, who is following to assist with medical management. 4. History of tobacco dependency/hypertension/history of TIA Complicates care, management, recovery and prognosis. Continue to hold baseline antihypertensives. TIME: 41 minutes of critical care time, independent of procedures, was spent addressing the patient's acute on chronic hypoxemic respiratory failure, septic shock, NSTEMI/cardiac arrest, review of all data and collaboration with the care team. HPI Consult Data Date of Consult: 02/08/23 HPI Narrative Reason for Consultation: Respiratory failure HPI Narrative: The patient is a 62-year-old female, with a history as outlined below, who presented to the hospital as a transfer of care from [facility], after the patient presented there with worsening shortness of breath. History pertinent to her hospitalization was obtained primarily via chart review, as the patient is currently intubated and mechanically ventilated. According to documentation, the patient has a history of COPD of unclear severity along with chronic hypoxemic respiratory failure with a baseline oxygen requirement of 2 L/min. She apparently presented with several days of upper respiratory symptoms. She was placed on BiPAP therapy at the outside hospital due to increased work of breathing. CTA performed at the outside hospital demonstrated bilateral emphysematous changes with bilateral airspace disease. Rapid flu and influenza were negative. The patient was apparently transferred to our hospital on CPAP as opposed to BiPAP therapy. On arrival, she was noted to be in significant respiratory distress. An attempt was made to transition the patient back to BiPAP therapy. However, the aforementioned intervention failed to provide any meaningful clinical improvement. Therefore, the patient was intubated. Last evening at approximately 1646, the patient developed significant bradycardia and eventually became unresponsive. CODE BLUE was called and ACLS was initiated after the patient was noted to be an pulseless cardiac arrest. Initial rhythm was noted to be ventricular fibrillation which was defibrillated. Eventually, with supportive care, ROSC was ultimately achieved approximately 4 minutes later. A central venous catheter was placed and the patient was evaluated by cardiology. A left heart catheterization was ultimately completed, which demonstrated significant multivessel coronary disease. Cardiology recommended CT surgery evaluation for CABG. At the present time, the patient is maintaining appropriate oxygen saturations on assist control mode of mechanical ventilation with an FiO2 requirement of 30% and PEEP of 5. She is hemodynamically stable on Levophed at 5 mcg/min. FORMERLY [facility], [facility] Medical History Anxiety Chronic respiratory failure COPD (chronic obstructive pulmonary disease) Former smoker History of TIA (transient ischemic attack) HTN (hypertension) Migraines Tobacco use Home Medications albuterol sulfate 2.5 mg/3 mL (0.083 %) solution for nebulization mg resp 02/07/23 [History Last Taken Unknown] alprazolam 0.5 mg tablet 0.5 mg PO .twice PRN anxious 02/07/23 [History Last Taken Unknown] amlodipine 10 mg tablet 10 mg PO DAILY bp 02/07/23 [History Last Taken Unknown] amlodipine 10 mg tablet (Norvasc) 10 mg PO DAILY bp 02/07/23 [History Last Taken Unknown] cyanocobalamin (vitamin B-12) 1,000 mcg tablet 1,000 mcg PO DAILY vit 02/07/23 [History Last Taken Unknown] fluticasone 250 mcg-salmeterol 50 mcg/dose blistr powdr for inhalation (Advair Diskus) 1 inh inhalation Q12H PRN respiratory distress 02/07/23 [History Last Taken Unknown] lisinopril 40 mg tablet 40 mg PO DAILY bp 02/07/23 [History Last Taken Unknown] Allergy/AdvReac Type Severity Reaction Status Date / Time No Known Allergies Allergy Verified 02/07/23 16:25 Family History (Updated 02/07/23 @ 19:[address] Love Vilchis MD) Mother CVA (cerebral vascular accident) Heart disease Hypertension Father Hypertension Heart disease CVA (cerebral vascular accident) Family History unable to obtain Surgical History History of tonsillectomy and adenoidectomy S/P appendectomy Surgical History unable to obtain Social History (Updated 02/07/23 @ 19:[address] Love Vilchis MD) household members: significant other and family Smoking Status: Former smoker how long ago did patient quit smoking: Quit 1 wk prior, smoked 1/2-1.5 ppd since teen. alcohol intake: never substance use type: does not use ROS Review of Systems ROS Unobtainable: due to endotracheal tube and due to mental status Physical Exam Const Constitutional Narrative: Intubated, sedated and mechanically ventilated. No ventilator dyssynchrony. HEENT normocephalic and head/scalp atraumatic Mouth: endotracheal tube in place and OG tube in place Eyes PERRL and EOMs intact bilaterally Neck supple General: trachea midline and CVC in place Resp Auscultation: wheezes and diminished lung sounds Cardio regular rate and regular rhythm GI normal to inspection, nondistended, normoactive bowel sounds Extremity no clubbing, cyanosis or edema Skin no rashes or lesions noted Neuro Sensorium / Orientation: sedated on vent Lab / Micro Data 02/08/23 04:15 02/08/23 04:15 Labs: Laboratory Results - last 24 hr 02/07/23 17:00: WBC 10.9, RBC 4.11 L, Hgb 11.7 L, Hct 39.8, MCV 96.8, MCH 28.5, MCHC 29.4 L, RDW Std Deviation 45.0 H, RDW Coeff of Angie 12.6, Plt Count 279, MPV 11.0, Immature Gran % (Auto) 6.000 H, Neut % (Auto) 74.2 H, Lymph % (Auto) 11.2 L, [place] % (Auto) 8.0, Eos % (Auto) 0.0, Baso % (Auto) 0.6, Absolute Neuts (auto) 8.1 H, Absolute Lymphs (auto) 1.22, Nucleated RBC % 0.2, Platelet Estimate ADEQUATE, RBC Morphology N CYTIC, Sodium 138, Potassium 4.6, Chloride 97 L, Carbon Dioxide 35.0 H, Anion Gap 6, BUN 21 H, Creatinine 1.03 H, Estim Creat Clear Calc 41.20, Est GFR (MDRD) Af Amer 70, Est GFR (MDRD) Non-Af 58 L, BUN/Creatinine Ratio 20.4 H, Glucose 227 H, Lactic Acid 5.0 H*, Calcium 7.6 L, Phosphorus 3.6, Magnesium 2.5, Total Bilirubin 0.10 L, AST 72 H, ALT 27, Alkaline Phosphatase 72, Total Creatine Kinase 324 H, Troponin I High Sens 468 H*, Total Protein 5.6 L, Albumin 1.7 L, Globulin 3.9, Albumin/Globulin Ratio 0.4 L, Triglycerides 121, Procalcitonin 0.21 H, TSH 0.27 L, Free T4 1.10 02/07/23 18:00: PT 14.0, INR 1.1, APTT 30.5 02/07/23 21:34: POC Glucose 269 H 02/07/23 21:45: Hemoglobin A1c 5.3, Lactic Acid 3.0 H*, Troponin I High Sens 31878 H* 02/08/23 04:10: Troponin I High Sens 73149 H* 02/08/23 04:15: WBC 13.5 H, RBC 4.06 L, Hgb 11.5 L, Hct 37.8, MCV 93.1, MCH 28.3, MCHC 30.4 L, RDW Std Deviation 44.5 H, RDW Coeff of Angie 13.0, Plt Count 367, MPV 10.9, Neut % (Auto) Not Reportable, APTT 127.8 H*, Sodium 136, Potassium 4.0, Chloride 97 L, Carbon Dioxide 31.0, Anion Gap 8, BUN 30 H, Creatinine 1.21 H, Estim Creat Clear Calc 35.07, Est GFR (MDRD) Af Amer 58 L, Est GFR (MDRD) Non-Af 48 L, BUN/Creatinine Ratio 24.8 H, Glucose 224 H, Calcium 8.0 L, Total Bilirubin 0.30, AST 402 H, ALT 142 H, Alkaline Phosphatase 62, Total Protein 5.6 L, Albumin 2.0 L, Globulin 3.6, Albumin/Globulin Ratio 0.6 L Micro: Microbiology 02/07/23 21:45 Urine Catheter - Uribe Legionella Antigen - Final 02/07/23 21:45 Urine Catheter - Uribe Streptococcus pneumoniae Antigen (M - Final Streptococcus pneumonia Ag 02/07/23 17:12 Mucosa - Nose Coronavirus COVID-19 PCR - Final 02/07/23 17:12 Mucosa - Nose Respiratory Panel (PCR) - Final Influenza A (Subtype H1) ABG Data ABG results: ABG 02/07/23 02/07/23 15:55 17:58 Specimen Type ART ART Sample Site L Radial R Brach pH 7.24 L 7.33 L Bicarbonate Actual 31.7 H 28.9 H Total CO2 34 31 Base Excess 4 H 3 H O2 Saturation 99 100 H O2 % 70.0 100.0 ABG pCO2 73.5 H* 55.4 H ABG pO2 142 H 254 H Marvin Test Positive Positive Respiration Rate 12 14 O2 Delivery Device BiPAP Adult Vent Vent Mode avaps AC Tidal Volume 400.0 400.0 POC PEEP 12 8 Crit Call To/Read Back Yes Blood Gas Notified Whom carlos alberto Blood Gas Notified Time 15:58:14 Clinical Comments Imagaing Radiology Impression Chest CTA 02/07/23 17:41 IMPRESSION: 1. Severe COPD. 2. Probable superimposed acute inflammatory changes of the mid and lower lung myers bilaterally much worse on the left. 3. Bronchitis of the lower lung myers. 4. Probable pleural thickening along the medial posterior lower left hemithorax but mass cannot be excluded. Recommend follow-up in 3-6 months. Electronically Signed: Kumar Zhou MD at 19:07 EST , Chest X-Ray 02/07/23 17:45 IMPRESSION: Lines and tubes as described. COPD and left-sided infiltrates. See the report of the CT scan performed one hour later which is a far better exam. Electronically Signed: Kumar Zhou MD at 19:09 EST , Charges/Coding Procedures Hospitalists Procedures: [id number] Critical Care 1st Hr
[2023-02-08] MEDS: Ipratropium/Albuterol Sulfate 3 ML AMPUL.NEB INHALATION ×4 (07:08→19:45)
[2023-02-08] MEDS: dexMEDEtomidine 400 MCG in 0.9% Normal Saline (100mL Bag) 96 ML 7.20000000000000018 MCG CONT INF (07:45)
[2023-02-08 08:00] LABS: Lymphocyte 7 % (19-41); Metamyelocyte 2 % (0-1); Monocyte 2 % (0-10); Neutrophil-Band 1 % (0-5); Neutrophil-Segmented 88 % (47-70); Platelet Estimate ADEQUATE (ADEQ); Total Cells Counted 100 (MANUAL DIFF)
[2023-02-08 08:01] LABS: Red Cell Morphology NORM C+C NORMAL (NORM C&C)
[2023-02-08 08:06] LABS: Absolute Lymphocyte Count 0.95 X10^3/uL (0.83-4.51); Lymphocyte # 0.95 X10^3/ul (0.83-4.51); Neutrophil # 12.02 X10^3/uL (2.7-7.7)
--- NOTE | 2023-02-08 08:42 | PCM.PN.CARD ---
Subjective Subjective Sedated on ventilator. Continues to require vasopressor agents for hemodynamic support. Objective Data Vital Signs: Vital Signs Temp Pulse Resp BP Pulse Ox O2 Del Method O2 Flow Rate 98.6 F 73 14 97/68 92 Mechanical Ventilator 40 02/08/23 07:00 02/08/23 07:08 02/08/23 07:08 02/08/23 07:00 02/08/23 07:08 02/08/23 07:08 02/07/23 23:00 FiO2 25 02/08/23 07:08 Oxygen Flow Rate (L/min) 40 Oxygen Delivery Method Mechanical Ventilator Weight: 126 lb 12.253 oz Body Mass Index (BMI) 24.7 Intake & Output: Intake and Output for Last 24 Hours 02/06/23 02/07/23 02/08/23 23:59 23:59 23:59 Intake Total 725.09 / 770.09 335.95 / 335.95 Output Total 275 / 275 Balance 725.09 / 720.09 60.95 / 60.95 Lab / Micro Data 02/08/23 04:15 02/08/23 04:15 Labs: Laboratory Results - last 24 hr 02/07/23 17:00: WBC 10.9, RBC 4.11 L, Hgb 11.7 L, Hct 39.8, MCV 96.8, MCH 28.5, MCHC 29.4 L, RDW Std Deviation 45.0 H, RDW Coeff of Angie 12.6, Plt Count 279, MPV 11.0, Immature Gran % (Auto) 6.000 H, Neut % (Auto) 74.2 H, Lymph % (Auto) 11.2 L, [place] % (Auto) 8.0, Eos % (Auto) 0.0, Baso % (Auto) 0.6, Absolute Neuts (auto) 8.1 H, Absolute Lymphs (auto) 1.22, Nucleated RBC % 0.2, Platelet Estimate ADEQUATE, RBC Morphology N CYTIC, Sodium 138, Potassium 4.6, Chloride 97 L, Carbon Dioxide 35.0 H, Anion Gap 6, BUN 21 H, Creatinine 1.03 H, Estim Creat Clear Calc 41.20, Est GFR (MDRD) Af Amer 70, Est GFR (MDRD) Non-Af 58 L, BUN/Creatinine Ratio 20.4 H, Glucose 227 H, Lactic Acid 5.0 H*, Calcium 7.6 L, Phosphorus 3.6, Magnesium 2.5, Total Bilirubin 0.10 L, AST 72 H, ALT 27, Alkaline Phosphatase 72, Total Creatine Kinase 324 H, Troponin I High Sens 468 H*, Total Protein 5.6 L, Albumin 1.7 L, Globulin 3.9, Albumin/Globulin Ratio 0.4 L, Triglycerides 121, Procalcitonin 0.21 H, TSH 0.27 L, Free T4 1.10 02/07/23 18:00: PT 14.0, INR 1.1, APTT 30.5 02/07/23 21:34: POC Glucose 269 H 02/07/23 21:45: Hemoglobin A1c 5.3, Lactic Acid 3.0 H*, Troponin I High Sens [id number] H* 02/08/23 04:10: Troponin I High Sens 59870 H* 02/08/23 04:15: WBC 13.5 H, RBC 4.06 L, Hgb 11.5 L, Hct 37.8, MCV 93.1, MCH 28.3, MCHC 30.4 L, RDW Std Deviation 44.5 H, RDW Coeff of Angie 13.0, Plt Count 367, MPV 10.9, Neut % (Auto) Not Reportable, Absolute Neuts (auto) 12.0 H, Absolute Lymphs (auto) 0.95, Total Counted 100, Neutrophils % (Manual) 88 H, Band Neutrophils % 1, Lymphocytes % (Manual) 7 L, Monocytes % (Manual) 2, Metamyelocytes % 2 H, Diff Path Review June, Platelet Estimate ADEQUATE, RBC Morphology NORM C+C, APTT 127.8 H*, Sodium 136, Potassium 4.0, Chloride 97 L, Carbon Dioxide 31.0, Anion Gap 8, BUN 30 H, Creatinine 1.21 H, Estim Creat Clear Calc 35.07, Est GFR (MDRD) Af Amer 58 L, Est GFR (MDRD) Non-Af 48 L, BUN/Creatinine Ratio 24.8 H, Glucose 224 H, Calcium 8.0 L, Total Bilirubin 0.30, AST 402 H, ALT 142 H, Alkaline Phosphatase 62, Total Protein 5.6 L, Albumin 2.0 L, Globulin 3.6, Albumin/Globulin Ratio 0.6 L Micro: Microbiology 02/07/23 21:45 Urine Catheter - Uribe Legionella Antigen - Final 02/07/23 21:45 Urine Catheter - Uribe Streptococcus pneumoniae Antigen (M - Final Streptococcus pneumonia Ag 02/07/23 17:12 Mucosa - Nose Coronavirus COVID-19 PCR - Final 02/07/23 17:12 Mucosa - Nose Respiratory Panel (PCR) - Final Influenza A (Subtype H1) ABG Data ABG results: ABG 02/07/23 02/07/23 15:55 17:58 Specimen Type ART ART Sample Site L Radial R Brach pH 7.24 L 7.33 L Bicarbonate Actual 31.7 H 28.9 H Total CO2 34 31 Base Excess 4 H 3 H O2 Saturation 99 100 H O2 % 70.0 100.0 ABG pCO2 73.5 H* 55.4 H ABG pO2 142 H 254 H Marvin Test Positive Positive Respiration Rate 12 14 O2 Delivery Device BiPAP Adult Vent Vent Mode avaps AC Tidal Volume 400.0 400.0 POC PEEP 12 8 Crit Call To/Read Back Yes Blood Gas Notified Whom carlos alberto Blood Gas Notified Time 15:58:14 Clinical Comments Cardiology Labs/Tests 02/07/23 15:55: pH 7.24 L, Bicarbonate Actual 31.7 H, Base Excess 4 H, O2 Saturation 99, ABG pCO2 73.5 H*, ABG pO2 142 H, Marvin Test Positive 02/07/23 17:00: WBC 10.9, RBC 4.11 L, Hgb 11.7 L, Hct 39.8, MCV 96.8, MCH 28.5, MCHC 29.4 L, Plt Count 279, MPV 11.0, Immature Gran % (Auto) 6.000 H, Neut % (Auto) 74.2 H, Lymph % (Auto) 11.2 L, [place] % (Auto) 8.0, Eos % (Auto) 0.0, Baso % (Auto) 0.6, Absolute Neuts (auto) 8.1 H, Nucleated RBC % 0.2, Sodium 138, Potassium 4.6, Chloride 97 L, Carbon Dioxide 35.0 H, Anion Gap 6, BUN 21 H, Creatinine 1.03 H, Est GFR (MDRD) Af Amer 70, Est GFR (MDRD) Non-Af 58 L, BUN/Creatinine Ratio 20.4 H, Glucose 227 H, Lactic Acid 5.0 H*, Calcium 7.6 L, Phosphorus 3.6, Magnesium 2.5, Total Bilirubin 0.10 L, Triglycerides 121 02/07/23 17:58: pH 7.33 L, Bicarbonate Actual 28.9 H, Base Excess 3 H, O2 Saturation 100 H, ABG pCO2 55.4 H, ABG pO2 254 H, Marvin Test Positive 02/07/23 18:00: PT 14.0, INR 1.1, APTT 30.5 02/07/23 21:45: Hemoglobin A1c 5.3, Lactic Acid 3.0 H* 02/08/23 04:15: WBC 13.5 H, RBC 4.06 L, Hgb 11.5 L, Hct 37.8, MCV 93.1, MCH 28.3, MCHC 30.4 L, Plt Count 367, MPV 10.9, Neut % (Auto) Not Reportable, Absolute Neuts (auto) 12.0 H, Total Counted 100, Neutrophils % (Manual) 88 H, Band Neutrophils % 1, Lymphocytes % (Manual) 7 L, Monocytes % (Manual) 2, Metamyelocytes % 2 H, APTT 127.8 H*, Sodium 136, Potassium 4.0, Chloride 97 L, Carbon Dioxide 31.0, Anion Gap 8, BUN 30 H, Creatinine 1.21 H, Est GFR (MDRD) Af Amer 58 L, Est GFR (MDRD) Non-Af 48 L, BUN/Creatinine Ratio 24.8 H, Glucose 224 H, Calcium 8.0 L, Total Bilirubin 0.30 Rhythm: EKG: ECHO: Stress Test: Cardiac Cath: PCI: CT Surgery: Holter monitor: EPS: PPM: CXR: Chest CT Scan: Radiography Diagnostic Testing: Radiology Impression Chest CTA 02/07/23 17:41 IMPRESSION: 1. Severe COPD. 2. Probable superimposed acute inflammatory changes of the mid and lower lung myers bilaterally much worse on the left. 3. Bronchitis of the lower lung myers. 4. Probable pleural thickening along the medial posterior lower left hemithorax but mass cannot be excluded. Recommend follow-up in 3-6 months. Electronically Signed: Kumar Zhou MD at 19:07 EST , Chest X-Ray 02/07/23 17:45 IMPRESSION: Lines and tubes as described. COPD and left-sided infiltrates. See the report of the CT scan performed one hour later which is a far better exam. Electronically Signed: Kumar Zhou MD at 19:09 EST , Physical Exam Narrative Sedated. Mechanically ventilated. Assessment & Plan Assessment/Plan (1) Cardiac arrest: PLAN: In the setting of acute hypoxemic respiratory failure. Coronary angiography revealed severe triple-vessel coronary artery disease however with DIEGO III flow in both left anterior descending artery and left circumflex coronary artery. Chronic total occlusion of the right coronary artery with excellent [id number] collaterals. Continue on amiodarone infusion for now. (2) Acute hypoxemic respiratory failure: PLAN: Mechanically ventilated. Follow as per critical care. (3) NSTEMI (non-ST elevated myocardial infarction): PLAN: See #1 above. Continue medical management. Will need a heart team approach towards revascularization when she recovers from her respiratory issues. (4) Coronary artery disease: PLAN: See #1 and 3 above. (5) COPD exacerbation: PLAN: As per pulmonology/critical care. (6) Left ventricular systolic dysfunction (LVSD): PLAN: Beta-blockers and SHANNON inhibitors when hemodynamically stable. (7) Septic shock: PLAN: On Levophed infusion. Critical care following.
[2023-02-08] MEDS: fentaNYL drip 100 ML 7.5 MCG CONT INF (09:26)
--- NOTE | 2023-02-08 09:39 | PCM.PN.HOSP ---
Subjective Subjective Remains intubated and sedated continue on vasopressors Objective Data Objective Data Vital Signs: Vital Signs Temp Pulse Resp BP Pulse Ox O2 Del Method O2 Flow Rate 98.6 F 73 14 97/68 95 Mechanical Ventilator 40 02/08/23 07:00 02/08/23 09:12 02/08/23 09:12 02/08/23 07:00 02/08/23 09:12 02/08/23 07:08 02/07/23 23:00 FiO2 25 02/08/23 09:12 Oxygen Flow Rate (L/min) 40 Oxygen Delivery Method Mechanical Ventilator Weight: 126 lb 12.253 oz Body Mass Index (BMI) 24.7 Intake & Output: Intake and Output for Last 24 Hours 02/07/23 02/08/23 02/09/23 03:59 03:59 03:59 Intake Total 880.81 / 906.86 191.60 / 191.60 Output Total 50 / 50 225 / 225 Balance 830.81 / 856.86 -33.40 / -33.40 Lab / Micro Data 02/08/23 04:15 02/08/23 04:15 Labs: Laboratory Results - last 24 hr 02/07/23 17:00: WBC 10.9, RBC 4.11 L, Hgb 11.7 L, Hct 39.8, MCV 96.8, MCH 28.5, MCHC 29.4 L, RDW Std Deviation 45.0 H, RDW Coeff of Angie 12.6, Plt Count 279, MPV 11.0, Immature Gran % (Auto) 6.000 H, Neut % (Auto) 74.2 H, Lymph % (Auto) 11.2 L, Rogers % (Auto) 8.0, Eos % (Auto) 0.0, Baso % (Auto) 0.6, Absolute Neuts (auto) 8.1 H, Absolute Lymphs (auto) 1.22, Nucleated RBC % 0.2, Platelet Estimate ADEQUATE, RBC Morphology N CYTIC, Sodium 138, Potassium 4.6, Chloride 97 L, Carbon Dioxide 35.0 H, Anion Gap 6, BUN 21 H, Creatinine 1.03 H, Estim Creat Clear Calc 41.20, Est GFR (MDRD) Af Amer 70, Est GFR (MDRD) Non-Af 58 L, BUN/Creatinine Ratio 20.4 H, Glucose 227 H, Lactic Acid 5.0 H*, Calcium 7.6 L, Phosphorus 3.6, Magnesium 2.5, Total Bilirubin 0.10 L, AST 72 H, ALT 27, Alkaline Phosphatase 72, Total Creatine Kinase 324 H, Troponin I High Sens 468 H*, Total Protein 5.6 L, Albumin 1.7 L, Globulin 3.9, Albumin/Globulin Ratio 0.4 L, Triglycerides 121, Procalcitonin 0.21 H, TSH 0.27 L, Free T4 1.10 02/07/23 18:00: PT 14.0, INR 1.1, APTT 30.5 02/07/23 21:34: POC Glucose 269 H 02/07/23 21:45: Hemoglobin A1c 5.3, Lactic Acid 3.0 H*, Troponin I High Sens 39830 H* 02/08/23 04:10: Troponin I High Sens 74695 H* 02/08/23 04:15: WBC 13.5 H, RBC 4.06 L, Hgb 11.5 L, Hct 37.8, MCV 93.1, MCH 28.3, MCHC 30.4 L, RDW Std Deviation 44.5 H, RDW Coeff of Angie 13.0, Plt Count 367, MPV 10.9, Neut % (Auto) Not Reportable, Absolute Neuts (auto) 12.0 H, Absolute Lymphs (auto) 0.95, Total Counted 100, Neutrophils % (Manual) 88 H, Band Neutrophils % 1, Lymphocytes % (Manual) 7 L, Monocytes % (Manual) 2, Metamyelocytes % 2 H, Diff Path Review June, Platelet Estimate ADEQUATE, RBC Morphology NORM C+C, APTT 127.8 H*, Sodium 136, Potassium 4.0, Chloride 97 L, Carbon Dioxide 31.0, Anion Gap 8, BUN 30 H, Creatinine 1.21 H, Estim Creat Clear Calc 35.07, Est GFR (MDRD) Af Amer 58 L, Est GFR (MDRD) Non-Af 48 L, BUN/Creatinine Ratio 24.8 H, Glucose 224 H, Calcium 8.0 L, Total Bilirubin 0.30, AST 402 H, ALT 142 H, Alkaline Phosphatase 62, Total Protein 5.6 L, Albumin 2.0 L, Globulin 3.6, Albumin/Globulin Ratio 0.6 L Micro: Microbiology 02/07/23 21:45 Urine Catheter - Uribe Legionella Antigen - Final 02/07/23 21:45 Urine Catheter - Uribe Streptococcus pneumoniae Antigen (M - Final Streptococcus pneumonia Ag 02/07/23 17:12 Mucosa - Nose Coronavirus COVID-19 PCR - Final 02/07/23 17:12 Mucosa - Nose Respiratory Panel (PCR) - Final Influenza A (Subtype H1) ABG Data ABG results: ABG 02/07/23 02/07/23 15:55 17:58 Specimen Type ART ART Sample Site L Radial R Brach pH 7.24 L 7.33 L Bicarbonate Actual 31.7 H 28.9 H Total CO2 34 31 Base Excess 4 H 3 H O2 Saturation 99 100 H O2 % 70.0 100.0 ABG pCO2 73.5 H* 55.4 H ABG pO2 142 H 254 H Marvin Test Positive Positive Respiration Rate 12 14 O2 Delivery Device BiPAP Adult Vent Vent Mode avaps AC Tidal Volume 400.0 400.0 POC PEEP 12 8 Crit Call To/Read Back Yes Blood Gas Notified Whom carlos alberto Blood Gas Notified Time 15:58:14 Clinical Comments Radiography Diagnostic Testing: Radiology Impression Chest CTA 02/07/23 17:41 IMPRESSION: 1. Severe COPD. 2. Probable superimposed acute inflammatory changes of the mid and lower lung myers bilaterally much worse on the left. 3. Bronchitis of the lower lung myers. 4. Probable pleural thickening along the medial posterior lower left hemithorax but mass cannot be excluded. Recommend follow-up in 3-6 months. Electronically Signed: Kumar Zhou MD at 19:07 EST Reading Location ID and State: [facility] / [place] , Service support , Chest X-Ray 02/07/23 17:45 IMPRESSION: Lines and tubes as described. COPD and left-sided infiltrates. See the report of the CT scan performed one hour later which is a far better exam. Electronically Signed: Kumar Zhou MD at 19:09 EST , Physical Exam Const General Appearance: intubated and patient mechanically ventilated HEENT normocephalic Eyes PERRL and conjunctivae normal Neck supple and no JVD Resp normal respiratory effort, no retractions and no use of accessory muscles Auscultation: wheezes; Negative for crackles, rales or rhonchi Cardio regular rate, regular rhythm, S1 normal heart sound, S2 normal heart sound and no murmurs GI soft to palpation and non-distended; Negative for hepatosplenomegaly Extremity no clubbing, cyanosis or edema Skin no rashes or lesions noted Neuro Sensorium / Orientation: sedated on vent Psych Appearance: intubated Assessment & Plan Assessment/Plan (1) COPD exacerbation: (2) Acute hypoxemic respiratory failure: PLAN: Plan 1. Acute on chronic hypoxic respiratory failure secondary to COPD exacerbation in the setting of influenza A and pneumococcal pneumonia with septic shock/non-STEMI with cardiac arrest ? Continue with vasopressors ? She was intubated overnight ? Continue with steroids as well as breathing treatments and antibiotics ? Cultures are pending ? Cardiology was consulted secondary to a CODE BLUE last night she went to the [facility] and found to have triple-vessel disease. Cardiology recommends that once her respiratory status is improved and she is off of pressors can evaluate for cardiac evaluation ? We will continue with the heparin drip 2. HTN/history of TIA ? We will hold her blood pressure medications as she is currently on vasopressors ? Continue with aspirin and Plavix as well as high-dose statin DVT: Heparin drip Charges/Coding Visit Charges Inpatient E&M: 82137 Subs Hosp L2
[2023-02-08] MEDS: Pantoprazole Sodium 40 MG in 0.9% Normal Saline (100mL MB+) 100 ML 330 MG IV ×2 (10:23→20:51)
[2023-02-08] MEDS: Clopidogrel Bisulfate 75 MG Tablet GT (10:24)
[2023-02-08] MEDS: Aspirin 81 MG TAB.CHEW GT (10:24)
[2023-02-08] MEDS: Chlorhexidine 15 ML PO ×2 (10:24→20:55)
[2023-02-08] MEDS: 0.9% Normal Saline (250mL Bag) 250 ML 15 ML IV (10:26)
[2023-02-08] MEDS: Oseltamivir Phosphate 30 MG Capsule GT ×2 (10:26→20:50)
--- NOTE | 2023-02-08 11:00 | PCM.PN.BLA ---
Progress Note Mild to moderate size anterior pericardial effusion, suspect clot. Recommend discontinuing heparin infusion.
[2023-02-08 12:16] LABS: Bedside Glucose 164 mg/dL (74-106)
[2023-02-08 18:08] LABS: Bedside Glucose 206 mg/dL (74-106)
[2023-02-08] MEDS: Vancomycin HCl 1,500 MG in 0.9% Normal Saline (500mL Bag) 500 ML 250 MG IV (18:21)
--- NOTE | 2023-02-08 18:33 | PCM.RX.CS ---
Consult Antibiotic Management Pharmacy has been consulted to manage selected antibiotic: Vancomycin Type of Intervention Type of Consult: New start Suspected Infection Suspected Infection: Pneumonia Labs Labs: Sodium 136 mmol/L (136-145) 02/08/23 04:15 Potassium 4.0 mmol/L (3.5-5.1) 02/08/23 04:15 Chloride 97 mmol/L (98-107) L 02/08/23 04:15 Carbon Dioxide 31.0 mmol/L (21.0-32.0) 02/08/23 04:15 Anion Gap 8 (5-15) 02/08/23 04:15 BUN 30 mg/dL (7-18) H 02/08/23 04:15 Creatinine 1.21 mg/dL (0.55-1.02) H 02/08/23 04:15 Est GFR (MDRD) Af Amer 58 mL/min (>60) L 02/08/23 04:15 Est GFR (MDRD) Non-Af 48 mL/min (>60) L 02/08/23 04:15 BUN/Creatinine Ratio 24.8 RATIO (10-20) H 02/08/23 04:15 Glucose 224 mg/dL (74-106) H 02/08/23 04:15 Microbiology Microbiology: Microbiology 02/07/23 17:00 Sputum, Induced/Lukens Gram Stain - Final 02/07/23 17:00 Sputum, Induced/Lukens Respiratory Culture - Preliminary Staphylococcus aureus 02/07/23 21:45 Urine Catheter - Uribe Legionella Antigen - Final 02/07/23 21:45 Urine Catheter - Uribe Streptococcus pneumoniae Antigen (M - Final Streptococcus pneumonia Ag 02/07/23 17:12 Mucosa - Nose Coronavirus COVID-19 PCR - Final 02/07/23 17:12 Mucosa - Nose Respiratory Panel (PCR) - Final Influenza A (Subtype H1) Pharmacy Plan for Drug Dosing Pharmacy Plan for Drug Dosing: NEW START IV VANCOMYCIN Consulting Physician: NICK Indication: PNEUMONIA Goal Trough: 15-20 MG/DL SrCr: 1.21 MG/DL CrCl: 35.1 ML/MIN Comments: LOADING DOSE OF 1500MG GIVEN 02/08 @ 1821 Vancomycin Dose: WILL START 750MG Q24H 02/09 @ 1830 AND GET A TROUGH PRIOR TO THE 3RD TOTAL DOSE PER POLICY. Pending Level: 02/10/23 @ 1800 Pharmacy Service will continue to monitor and adjust dosing as required.
[2023-02-08] MEDS: dexMEDEtomidine 400 MCG in 0.9% Normal Saline (100mL Bag) 96 ML 10.0999999999999996 MCG CONT INF (18:48)
[2023-02-08] MEDS: Atorvastatin Calcium 80 MG Tablet GT (20:50)
[2023-02-08] MEDS: Ceftriaxone 1 GM/50 ML BAG IV (20:56)
[2023-02-08] MEDS: fentaNYL drip 100 ML 10 MCG CONT INF (21:12)
[2023-02-08] MEDS: Azithromycin 500 MG in Dextrose 5%-Water (250mL Bag) 250 ML 250 MG IV (21:42)
[2023-02-09] VITALS (38 sets, daily range): BP systolic 95–133; BP diastolic 60–104; PULSE 14–117; RESP 14–21; TEMP 37.1–37.8; O2SAT 88–99; BMI 25.5
[2023-02-09] MEDS: CHLORHEXIDINE GLUC 2% CLOTH 1 EACH TOWELETTE TOPICAL (00:08)
[2023-02-09] MEDS: Insulin Lispro 100 UNIT/ML INSULN.PEN SC ×4 (00:08→18:46)
[2023-02-09 00:20] LABS: Bedside Glucose 252 mg/dL (74-106)
[2023-02-09] MEDS: Amiodarone 360 MG in Dextrose 5% Viaflo Bag 192.8 ML 16.6999999999999993 MG CONT INF ×2 (02:10→15:24)
[2023-02-09 03:51] LABS: Hematocrit 35.9 % (37-47); Mean Corp Hgb Conc 30.6 g/dL (32-36); Mean Corpuscular Hgb 28.4 pg (27.0-32.0); Mean Corpuscular Volume 92.5 fL (81-99); Mean Platelet Vol. 10.6 fl (6.2-12.0); POSITIVE COUNT YES; POSITIVE MORPHOLOGY YES; Platelet Count 338 K/mm3 (150-450); RBC Distribution Width CV 13.2 % (11.6-14.6); RBC Distribution Width SD 45.2 fl (35.1-43.9); Red Blood Count 3.88 M/mm3 (4.2-5.4); White Blood Count 11.2 K/mm3 (4.4-11.0)
[2023-02-09 04:04] LABS: Anion Gap 7 (5-15); BUN 25 mg/dL (7-18); BUN/Creat Ratio 25.8 RATIO (10-20); Calcium,Total 7.6 mg/dL (8.5-10.1); Chloride 100 mmol/L (98-107); Creatinine, Serum 0.97 mg/dL (0.55-1.02); EST Glomerular Filtration Rate 62 mL/min (>60); Est Glom Filt Rate - Afr Amer 75 mL/min (>60); Estimated Creatinine Clearance 43.75 ml/min; Glucose 233 mg/dL (74-106); Potassium 3.8 mmol/L (3.5-5.1); Sodium Level 137 mmol/L (136-145)
[2023-02-09 04:20] LABS: Differential Indicated MANUAL DIFF
[2023-02-09] MEDS: dexMEDEtomidine 400 MCG in 0.9% Normal Saline (100mL Bag) 96 ML 10.3000000000000007 MCG CONT INF ×2 (04:42→15:24)
[2023-02-09] MEDS: 0.9% Saline Lock 10 ML Syringe IV (05:06)
[2023-02-09 05:07] LABS: Lymphocyte 8 % (19-41); Monocyte 12 % (0-10); Myelocyte 1 % (0-0); Neutrophil-Segmented 79 % (47-70); Total Cells Counted 100 (MANUAL DIFF)
[2023-02-09 05:08] LABS: Absolute Lymphocyte Count 0.89 X10^3/uL (0.83-4.51); Absolute Neutrophil Count 8.8 X10^3/uL (2.0-7.7)
[2023-02-09] MEDS: TITRATION PARAMETER CHANGE 1 EACH IV (05:12)
[2023-02-09] MEDS: Miconazole Nitrate 43 GM Bottle 1 APPLIC TOPICAL ×3 (05:12→20:43)
--- NOTE | 2023-02-09 05:33 | NURSING ---
Fentanyl gtt paused d/t apnea on breathing trial. Restarted fentanyl gtt at 0530 d/t pt failing breathing trial.
[2023-02-09 05:38] LABS: Bedside Glucose 193 mg/dL (74-106)
[2023-02-09] MEDS: Ipratropium/Albuterol Sulfate 3 ML AMPUL.NEB INHALATION ×4 (07:38→19:17)
--- NOTE | 2023-02-09 07:52 | PCM.PN.INT ---
Assessment & Plan Assessment/Plan (1) COPD exacerbation: (2) NSTEMI (non-ST elevated myocardial infarction): (3) Acute hypoxemic respiratory failure: (4) Cardiac arrest: PLAN: Plan RECOMMENDATIONS: 1. Continue mechanical ventilation. Wean O2 as tolerated 2. Okay to initiate tube feeds 3. Continue antimicrobials and Tamiflu. Discontinue vancomycin given MSSA 4. Continue scheduled bronchodilators and steroids. 5. Continue amiodarone and heparin infusion. 6. Spontaneous breathing and awakening trials per protocol IMPRESSIONS: 1. Acute on chronic hypoxemic respiratory failure The patient has a baseline of reported COPD of unknown severity along with chronic hypoxemic respiratory failure with a baseline requirement of 2 L/min. She presented with worsening shortness of breath in the setting of influenza A and pneumococcal pneumonia. The patient was ultimately intubated. Plan to continue assist-control mode of mechanical ventilation and wean FiO2 and PEEP to maintain saturations at or above 90%. The patient will be continued on scheduled bronchodilators, steroids, antibiotics and Tamiflu. Okay to continue fentanyl for sedation. Spontaneous breathing and awakening trials per protocol. 2. Septic shock Off Levophed. The patient presented to the hospital with sepsis due to influenza A and pneumococcal pneumonia with acute sepsis related organ dysfunction as evidenced by lactic acidemia and respiratory failure requiring invasive mechanical ventilatory support. Patient does appear to have MSSA growing from multiple cultures also. Continue supportive care along with antimicrobials. 3. NSTEMI/cardiac arrest The patient's hospital course has been complicated by a V-fib cardiac arrest with successful ROSC. The patient underwent cardiac catheterization which revealed multivessel coronary disease, for which evaluation by CT surgery was recommended. Will defer the urgency with regard to her revascularization to cardiology, who is following to assist with medical management. Patient has the potential of a clot in the pericardium, so no heparin is recommended 4. History of tobacco dependency/hypertension/history of TIA Complicates care, management, recovery and prognosis. Continue to hold baseline antihypertensives. TIME: 38 minutes of critical care time, independent of procedures, was spent addressing the patient's acute on chronic hypoxemic respiratory failure, septic shock, NSTEMI/cardiac arrest, review of all data and collaboration with the care team. Subjective Subjective Patient did okay overnight. Patient is off of Levophed, but continues on amiodarone and heparin drips along with Precedex for sedation. Patient has come back positive for MSSA, pneumococcus and influenza A. Patient did not have a spontaneous breathing trial secondary to code. Objective Data Objective Data Vital Signs: Vital Signs Temp Pulse Resp BP Pulse Ox O2 Del Method O2 Flow Rate 37.1 C 62 14 95/66 96 Mechanical Ventilator 40 02/09/23 07:00 02/09/23 07:39 02/09/23 07:39 02/09/23 07:00 02/09/23 07:00 02/09/23 07:00 02/07/23 23:00 FiO2 35 02/09/23 07:00 Oxygen Flow Rate (L/min) 40 Oxygen Delivery Method Mechanical Ventilator Weight: 59.1 kg Body Mass Index (BMI) 25.5 Intake & Output: Intake and Output for Last 24 Hours 02/07/23 02/08/23 02/09/23 23:59 23:59 23:59 Intake Total 725.09 / 770.09 2537.33 / 2574.13 650.29 / 650.29 Output Total 550 / 800 375 / 375 Balance 725.09 / 720.09 1987.33 / 1774.13 275.29 / 275.29 Lab / Micro Data Attestation: I reviewed the patient's lab results. 02/09/23 03:40 02/09/23 03:40 Labs: Laboratory Results - last 24 hr 02/08/23 04:15: Absolute Neuts (auto) 12.0 H, Absolute Lymphs (auto) 0.95, Total Counted 100, Neutrophils % (Manual) 88 H, Band Neutrophils % 1, Lymphocytes % (Manual) 7 L, Monocytes % (Manual) 2, Metamyelocytes % 2 H, Diff Path Review June, Platelet Estimate ADEQUATE, RBC Morphology NORM C+C 02/08/23 11:53: POC Glucose 164 H 02/08/23 17:50: POC Glucose 206 H 02/08/23 23:57: POC Glucose 252 H 02/09/23 03:40: WBC 11.2 H, RBC 3.88 L, Hgb 11.0 L, Hct 35.9 L, MCV 92.5, MCH 28.4, MCHC 30.6 L, RDW Std Deviation 45.2 H, RDW Coeff of Angie 13.2, Plt Count 338, MPV 10.6, Neut % (Auto) Not Reportable, Absolute Neuts (auto) 8.8 H, Absolute Lymphs (auto) 0.89, Total Counted 100, Neutrophils % (Manual) 79 H, Lymphocytes % (Manual) 8 L, Monocytes % (Manual) 12 H, Myelocytes % 1 H, Diff Path Review May foll, Sodium 137, Potassium 3.8, Chloride 100, Carbon Dioxide 30.0, Anion Gap 7, BUN 25 H, Creatinine 0.97, Estim Creat Clear Calc 43.75, Est GFR (MDRD) Af Amer 75, Est GFR (MDRD) Non-Af 62, BUN/Creatinine Ratio 25.8 H, Glucose 233 H, Calcium 7.6 L 02/09/23 05:16: POC Glucose 193 H Micro: Microbiology 02/07/23 17:00 Sputum, Induced/Lukens Gram Stain - Final 02/07/23 17:00 Sputum, Induced/Lukens Respiratory Culture - Final Staphylococcus aureus 02/07/23 21:45 Urine Catheter - Uribe Legionella Antigen - Final 02/07/23 21:45 Urine Catheter - Uribe Streptococcus pneumoniae Antigen (M - Final Streptococcus pneumonia Ag 02/07/23 17:12 Mucosa - Nose Coronavirus COVID-19 PCR - Final 02/07/23 17:12 Mucosa - Nose Respiratory Panel (PCR) - Final Influenza A (Subtype H1) Radiography Diagnostic Testing: Radiology Impression Echocardiogram 02/07/23 17:11 Interpretation Summary Severe LV systolic dysfunction with severe anterior and apical hypokinesis to akinesis. Estimated ejection fraction 15 to 20%. Mild (1+) mitral valve insufficiency. Moderate sized anterior pericardial effusion, consider clot. Ordering Physician: Love Vilchis Performed By: Luz Chisholm, [place], RVT Chest X-Ray 02/08/23 04:55 IMPRESSION: Radiographic worsening compatible with bibasilar pneumonia, left greater than right. No emergent finding. Electronically Signed: Lucian Resendiz MD at 14:11 EST , Physical Exam Const Constitutional Narrative: Intubated, sedated and mechanically ventilated. No ventilator dyssynchrony. HEENT normocephalic and head/scalp atraumatic Eyes PERRL and EOMs intact bilaterally Neck supple General: trachea midline and CVC in place Resp Auscultation: wheezes and diminished lung sounds; Negative for rales or rhonchi Cardio regular rate, S1 normal heart sound, S2 normal heart sound, no murmurs and no rub GI normal to inspection, nondistended, normoactive bowel sounds Extremity no clubbing, cyanosis or edema Skin no rashes or lesions noted Neuro Sensorium / Orientation: sedated on vent Psych Mood & Affect: flat affect Charges/Coding Procedures Hospitalists Procedures: 76943 Critical Care 1st Hr
--- NOTE | 2023-02-09 08:39 | PN.HOSP_ITS ---
Subjective Subjective Intubated and sedated Objective Data Objective Data Vital Signs: Vital Signs Temp Pulse Resp BP Pulse Ox O2 Del Method O2 Flow Rate 99.0 F 60 14 95/61 96 Mechanical Ventilator 40 02/09/23 08:22 02/09/23 08:22 02/09/23 08:22 02/09/23 08:22 02/09/23 08:22 02/09/23 08:22 02/07/23 23:00 FiO2 30 02/09/23 08:22 Oxygen Flow Rate (L/min) 40 Oxygen Delivery Method Mechanical Ventilator Weight: 130 lb 4.691 oz Body Mass Index (BMI) 25.5 Intake & Output: Intake and Output for Last 24 Hours 02/08/23 02/09/23 02/10/23 03:59 03:59 03:59 Intake Total 880.81 / 906.86 2778.81 / 2815.61 295.44 / 295.44 Output Total 50 / 50 750 / 750 185 / 185 Balance 830.81 / 856.86 2028.81 / 2065.61 110.44 / 110.44 Lab / Micro Data 02/09/23 03:40 02/09/23 03:40 Labs: Laboratory Results - last 24 hr 02/08/23 11:53: POC Glucose 164 H 02/08/23 17:50: POC Glucose 206 H 02/08/23 23:57: POC Glucose 252 H 02/09/23 03:40: WBC 11.2 H, RBC 3.88 L, Hgb 11.0 L, Hct 35.9 L, MCV 92.5, MCH 28.4, MCHC 30.6 L, RDW Std Deviation 45.2 H, RDW Coeff of Angie 13.2, Plt Count 338, MPV 10.6, Neut % (Auto) Not Reportable, Absolute Neuts (auto) 8.8 H, Absolute Lymphs (auto) 0.89, Total Counted 100, Neutrophils % (Manual) 79 H, Lymphocytes % (Manual) 8 L, Monocytes % (Manual) 12 H, Myelocytes % 1 H, Diff Path Review May foll, Sodium 137, Potassium 3.8, Chloride 100, Carbon Dioxide 30.0, Anion Gap 7, BUN 25 H, Creatinine 0.97, Estim Creat Clear Calc 43.75, Est GFR (MDRD) Af Amer 75, Est GFR (MDRD) Non-Af 62, BUN/Creatinine Ratio 25.8 H, Glucose 233 H, Calcium 7.6 L 02/09/23 05:16: POC Glucose 193 H Micro: Microbiology 02/07/23 17:00 Sputum, Induced/Lukens Gram Stain - Final 02/07/23 17:00 Sputum, Induced/Lukens Respiratory Culture - Final Staphylococcus aureus 02/07/23 21:45 Urine Catheter - Uribe Legionella Antigen - Final 02/07/23 21:45 Urine Catheter - Uribe Streptococcus pneumoniae Antigen (M - Final Streptococcus pneumonia Ag 02/07/23 17:12 Mucosa - Nose Coronavirus COVID-19 PCR - Final 02/07/23 17:12 Mucosa - Nose Respiratory Panel (PCR) - Final Influenza A (Subtype H1) Radiography Diagnostic Testing: Radiology Impression Echocardiogram 02/07/23 17:11 Interpretation Summary Severe LV systolic dysfunction with severe anterior and apical hypokinesis to akinesis. Estimated ejection fraction 15 to 20%. Mild (1+) mitral valve insufficiency. Moderate sized anterior pericardial effusion, consider clot. Ordering Physician: Love Vilchis Performed By: Luz Chisholm, [place], RVT Chest X-Ray 02/08/23 04:55 IMPRESSION: Radiographic worsening compatible with bibasilar pneumonia, left greater than right. No emergent finding. Electronically Signed: Lucian Resendiz MD at 14:11 EST , Physical Exam Narrative Const General Appearance: intubated and patient mechanically ventilated HEENT normocephalic Eyes PERRL and conjunctivae normal Neck supple and no JVD Resp No retractions and no use of accessory muscles Auscultation: wheezes; Negative for crackles, rales or rhonchi Cardio regular rate, regular rhythm, S1 normal heart sound, S2 normal heart sound and no murmurs GI soft to palpation and non-distended; Negative for hepatosplenomegaly Extremity no clubbing, cyanosis or edema Skin no rashes or lesions noted Neuro Sensorium / Orientation: sedated on vent Psych Appearance: intubated Assessment & Plan Assessment/Plan (1) COPD exacerbation: (2) Acute hypoxemic respiratory failure: PLAN: Plan 1. Acute on chronic hypoxic respiratory failure secondary to COPD exacerbation in the setting of influenza A and pneumococcal pneumonia with septic shock/non- STEMI with cardiac arrest ? Vasopressors were able to be weaned off last evening ? Remains mechanically ventilated and intubated today ? Continue with steroids as well as breathing treatments and antibiotics ? Cultures from the outside hospital showing staph infection in her blood vancomycin was added to her antibiotics ? Cardiology was consulted secondary to a CODE BLUE last night she went to the [facility] and found to have triple-vessel disease. Cardiology recommends that once her respiratory status is improved and she is off of pressors can evaluate for cardiac evaluation ? We will continue with the heparin drip 2. HTN/history of TIA ? We will hold her blood pressure medications as she is currently on vasopressors ? Continue with aspirin and Plavix as well as high-dose statin DVT: Heparin drip Charges/Coding Visit Charges Inpatient E&M: 88983 Subs Hosp L2
[2023-02-09] MEDS: Aspirin 81 MG TAB.CHEW GT (10:58)
[2023-02-09] MEDS: Clopidogrel Bisulfate 75 MG Tablet GT (10:58)
[2023-02-09] MEDS: Pantoprazole Sodium 40 MG in 0.9% Normal Saline (100mL MB+) 100 ML 330 MG IV ×2 (10:59→20:41)
[2023-02-09] MEDS: Chlorhexidine 15 ML PO ×2 (10:59→20:40)
[2023-02-09] MEDS: Oseltamivir Phosphate 30 MG Capsule GT ×2 (11:09→20:41)
[2023-02-09] MEDS: fentaNYL drip 100 ML 5 MCG CONT INF (11:09)
[2023-02-09 14:22] LABS: Pathologist Review Reviewed
--- NOTE | 2023-02-09 15:56 | CASEMGMT ---
RN KATHLEEN NOTE: Pt currently intubated. BC'S +MSSA and pt is on Vanco. Pt went into V-fib arrest w/successful ROSC 02/07, went to [facility], and evaluation by CT surgery is recommended. Cardiology recommends that once her respiratory status is improved and she is off of pressors can evaluate for cardiac evaluation. Val, supply planner, to document list of tertiary hospitals in-network w/pt's insurance. Initial RN CM assessment deferred at this time. Scot SLATER RN CM
--- NOTE | 2023-02-09 16:31 | CASEMGMT ---
Insurance review for hospitals In-network with [facility] insurance if transfer is recommended is as follows:. [facility], [facility], [facility], [facility], [facility]), [facility], [facility] and . Val Evans, Discharge Planning Asst.
[2023-02-09 17:00] LABS: Bedside Glucose 200 mg/dL (74-106)
--- NOTE | 2023-02-09 17:00 | CASEMGMT ---
RN?CM?ASSESSMENT Pt currently intubated. RN?CM?to room to meet with family for initial transition planning/care coordination?assessment. Son, Anson, and daughter, Louann, @ bedside. ?RN?CM?introduced self and role at [facility].? Care providers, pharmacy, and demographics verified/updated at this time. PCP: DAQUAN Smith in [place] Specialists: none. Dtr states she has been trying to get her to go to a seo executive, but states she would not go. Preferred Pharmacy: [facility] Insurance: [facility] Prescription Benefit:?Yes Living Will/HPOA:?Pt does not currently have LW/HCPOA LNOK: SonAnson. 2 daughters, Louann and Marlen Living Arrangements: Lives w/sig other, Dejuan, in 2-story home w/no steps to enter. [facility]. They have been together for 28 yrs. Dejuan takes care of pt. He assists w/bathing and dressing . They state pt is not able to walk much and he pushes her in the W/C all over wherever she needs to go . He also does all home mgmt tasks. Pt does manage her own medications. Transportation:?Dejuan DME: ? has the following DME:?W/C, nebulizer, and oxygen through [facility]. Anson and Louann state that Dejuan states she wears 1 3/4 liter of oxygen. She has a concentrator and POC. HHC/SNF: No hx of either. PLAN:??TBD. Pt currently intubated. Scot YUENN?RN?CM
[2023-02-09 19:10] LABS: Bedside Glucose 174 mg/dL (74-106)
[2023-02-09] MEDS: Atorvastatin Calcium 80 MG Tablet GT (20:40)
[2023-02-09] MEDS: Ceftriaxone 1 GM/50 ML BAG IV (20:40)
[2023-02-09] MEDS: Azithromycin 500 MG in Dextrose 5%-Water (250mL Bag) 250 ML 250 MG IV (20:41)
[2023-02-10] VITALS (33 sets, daily range): BP systolic 95–133; BP diastolic 57–106; PULSE 66–110; RESP 12–27; TEMP 37.6–38.9; O2SAT 90–97; BMI 25.9
[2023-02-10] MEDS: Insulin Lispro 100 UNIT/ML INSULN.PEN SC ×4 (00:08→17:18)
[2023-02-10 00:27] LABS: Bedside Glucose 219 mg/dL (74-106)
[2023-02-10] MEDS: dexMEDEtomidine 400 MCG in 0.9% Normal Saline (100mL Bag) 96 ML 10.3000000000000007 MCG CONT INF (02:00)
[2023-02-10] MEDS: CHLORHEXIDINE GLUC 2% CLOTH 1 EACH TOWELETTE TOPICAL (02:13)
[2023-02-10] MEDS: Amiodarone 360 MG in Dextrose 5% Viaflo Bag 192.8 ML 16.6999999999999993 MG CONT INF (02:13)
[2023-02-10 03:24] LABS: Hematocrit 38.1 % (37-47); Hemoglobin 11.9 g/dL (12.0-15.0); Mean Corp Hgb Conc 31.2 g/dL (32-36); Mean Corpuscular Hgb 28.5 pg (27.0-32.0); Mean Corpuscular Volume 91.1 fL (81-99); Mean Platelet Vol. 10.9 fl (6.2-12.0); POSITIVE COUNT YES; POSITIVE MORPHOLOGY YES; Platelet Count 400 K/mm3 (150-450); RBC Distribution Width CV 13.3 % (11.6-14.6); RBC Distribution Width SD 44.8 fl (35.1-43.9); Red Blood Count 4.18 M/mm3 (4.2-5.4); White Blood Count 15.5 K/mm3 (4.4-11.0)
[2023-02-10 03:39] LABS: Anion Gap 5 (5-15); BUN 19 mg/dL (7-18); BUN/Creat Ratio 22.1 RATIO (10-20); Calcium,Total 7.6 mg/dL (8.5-10.1); Chloride 100 mmol/L (98-107); Creatinine, Serum 0.86 mg/dL (0.55-1.02); Differential Indicated MANUAL DIFF; EST Glomerular Filtration Rate 71 mL/min (>60); Est Glom Filt Rate - Afr Amer 86 mL/min (>60); Estimated Creatinine Clearance 49.34 ml/min; Glucose 215 mg/dL (74-106); Sodium Level 134 mmol/L (136-145)
[2023-02-10 03:58] LABS: Lymphocyte 6 % (19-41); Metamyelocyte 6 % (0-1); Monocyte 8 % (0-10); Neutrophil-Band 1 % (0-5); Neutrophil-Segmented 79 % (47-70); Nucleated Red Bld Cells,Manual 2 % (0-5); Total Cells Counted 100 (MANUAL DIFF)
[2023-02-10 03:59] LABS: Absolute Lymphocyte Count 0.93 X10^3/uL (0.83-4.51); Absolute Neutrophil Count 13.3 X10^3/uL (2.0-7.7); Lymphocyte # 0.93 X10^3/ul (0.83-4.51); Neutrophil # 13.34 X10^3/uL (2.7-7.7); Platelet Estimate ADEQUATE (ADEQ); Red Cell Morphology NORM C+C NORMAL (NORM C&C)
[2023-02-10] MEDS: 0.9% Saline Lock 10 ML Syringe IV (05:00)
[2023-02-10] MEDS: TITRATION PARAMETER CHANGE 1 EACH IV (05:00)
[2023-02-10] MEDS: Miconazole Nitrate 43 GM Bottle 1 APPLIC TOPICAL ×3 (05:00→20:43)
[2023-02-10 05:23] LABS: Bedside Glucose 216 mg/dL (74-106)
[2023-02-10] MEDS: fentaNYL drip 100 ML 7.5 MCG CONT INF ×2 (06:35→20:00)
[2023-02-10] MEDS: dexMEDEtomidine 400 MCG in 0.9% Normal Saline (100mL Bag) 96 ML 12 MCG CONT INF ×2 (06:37→11:13)
[2023-02-10] MEDS: Vital AF 1.2 Cal Liquid 1,000 ML 20 ML GT (06:37)
[2023-02-10] MEDS: Ipratropium/Albuterol Sulfate 3 ML AMPUL.NEB INHALATION ×4 (06:46→19:30)
[2023-02-10] MEDS: Clopidogrel Bisulfate 75 MG Tablet GT (07:48)
[2023-02-10] MEDS: Aspirin 81 MG TAB.CHEW GT (07:48)
[2023-02-10] MEDS: Chlorhexidine 15 ML PO ×2 (07:49→20:41)
[2023-02-10] MEDS: Pantoprazole Sodium 40 MG in 0.9% Normal Saline (100mL MB+) 100 ML 330 MG IV ×2 (07:49→20:43)
[2023-02-10] MEDS: Polyethylene Glycol 3350 17 GM PACKET PO ×2 (07:49→20:42)
[2023-02-10] MEDS: Oseltamivir Phosphate 30 MG Capsule GT ×2 (07:49→20:42)
--- NOTE | 2023-02-10 08:50 | PCM.PN.INT ---
Assessment & Plan Assessment/Plan (1) COPD exacerbation: (2) NSTEMI (non-ST elevated myocardial infarction): (3) Acute hypoxemic respiratory failure: (4) Cardiac arrest: PLAN: Plan RECOMMENDATIONS: 1. Continue mechanical ventilation. Wean O2 as tolerated 2. Okay to initiate tube feeds 3. Continue antimicrobials and Tamiflu. Discontinue vancomycin given MSSA 4. Continue scheduled bronchodilators and steroids. 5. Continue amiodarone and heparin infusion. 6. Spontaneous breathing and awakening trials per protocol IMPRESSIONS: 1. Acute on chronic hypoxemic respiratory failure The patient has a baseline of reported COPD of unknown severity along with chronic hypoxemic respiratory failure with a baseline requirement of 2 L/min. She presented with worsening shortness of breath in the setting of influenza A and pneumococcal pneumonia. The patient was ultimately intubated. Plan to continue assist-control mode of mechanical ventilation and wean FiO2 and PEEP to maintain saturations at or above 90%. The patient will be continued on scheduled bronchodilators, steroids, antibiotics and Tamiflu. Will keep steroids at current dosing until able to be extubated. Spontaneous breathing and awakening trials per protocol. 2. Septic shock Off Levophed. The patient presented to the hospital with sepsis due to influenza A, pneumococcal and MSSA pneumonia with acute sepsis related organ dysfunction as evidenced by lactic acidemia and respiratory failure requiring invasive mechanical ventilatory support. Patient does appear to have MSSA growing from multiple cultures also. Continue supportive care along with antimicrobials. Patient is no longer requiring pressors or having fevers 3. NSTEMI/cardiac arrest The patient's hospital course has been complicated by a V-fib cardiac arrest with successful ROSC. The patient underwent cardiac catheterization which revealed multivessel coronary disease, for which evaluation by CT surgery was recommended. Will defer the urgency with regard to her revascularization to cardiology, who is following to assist with medical management. Patient has the potential of a clot in the pericardium, so no heparin is recommended 4. History of tobacco dependency/hypertension/history of TIA Complicates care, management, recovery and prognosis. Continue to hold baseline antihypertensives. 5. Prolonged QTc Cardiology following. May need to discontinue amiodarone. Defer to cardiology. Will discontinue Zithromax, but other antibiotics are necessary TIME: 34 minutes of critical care time, independent of procedures, was spent addressing the patient's acute on chronic hypoxemic respiratory failure, septic shock, NSTEMI/cardiac arrest, review of all data and collaboration with the care team. Subjective Subjective Patient did okay overnight. Patient did have a spontaneous breathing trial this morning, but this was discontinued secondary to tachycardia and tachypnea. Patient remains on amiodarone, Precedex and fentanyl drips. No significant fever noted overnight. Objective Data Objective Data Patient's QTc has been prolonging on review of telemetry Vital Signs: Vital Signs Temp Pulse Resp BP Pulse Ox O2 Del Method O2 Flow Rate 37.7 C H 79 12 130/93 H 93 Mechanical Ventilator 30 02/10/23 08:00 02/10/23 08:00 02/10/23 08:00 02/10/23 08:00 02/10/23 08:00 02/10/23 08:00 02/09/23 08:31 FiO2 30 02/10/23 08:00 Oxygen Flow Rate (L/min) 30 Oxygen Delivery Method Mechanical Ventilator Weight: 59.8 kg Body Mass Index (BMI) 25.9 Intake & Output: Intake and Output for Last 24 Hours 02/08/23 02/09/23 02/10/23 23:59 23:59 23:59 Intake Total 2537.33 / 2574.13 1906.66 / 1938.66 485.91 / 485.91 Output Total 550 / 800 860 / 1000 350 / 350 Balance 1987.33 / 1774.13 1046.66 / 938.66 135.91 / 135.91 Lab / Micro Data Attestation: I reviewed the patient's lab results. 02/10/23 03:22 02/10/23 03:22 Labs: Laboratory Results - last 24 hr 02/09/23 03:40: Diff Path Review Reviewed 02/09/23 13:39: POC Glucose 200 H 02/09/23 18:44: POC Glucose 174 H 02/10/23 00:07: POC Glucose 219 H 02/10/23 03:22: WBC 15.5 H, RBC 4.18 L, Hgb 11.9 L, Hct 38.1, MCV 91.1, MCH 28.5, MCHC 31.2 L, RDW Std Deviation 44.8 H, RDW Coeff of Angie 13.3, Plt Count 400, MPV 10.9, Neut % (Auto) Not Reportable, Absolute Neuts (auto) 13.3 H, Absolute Lymphs (auto) 0.93, Total Counted 100, Neutrophils % (Manual) 79 H, Band Neutrophils % 1, Lymphocytes % (Manual) 6 L, Monocytes % (Manual) 8, Metamyelocytes % 6 H, Nucleated RBCs/100 WBC 2, Diff Path Review May foll, Platelet Estimate ADEQUATE, RBC Morphology NORM C+C, Sodium 134 L, Potassium 4.0, Chloride 100, Carbon Dioxide 29.0, Anion Gap 5, BUN 19 H, Creatinine 0.86, Estim Creat Clear Calc 49.34, Est GFR (MDRD) Af Amer 86, Est GFR (MDRD) Non-Af 71, BUN/Creatinine Ratio 22.1 H, Glucose 215 H, Calcium 7.6 L 02/10/23 04:59: POC Glucose 216 H Micro: Microbiology 02/07/23 17:00 Sputum, Induced/Lukens Gram Stain - Final 02/07/23 17:00 Sputum, Induced/Lukens Respiratory Culture - Final Staphylococcus aureus 02/07/23 21:45 Urine Catheter - Uribe Legionella Antigen - Final 02/07/23 21:45 Urine Catheter - Uribe Streptococcus pneumoniae Antigen (M - Final Streptococcus pneumonia Ag 02/07/23 17:12 Mucosa - Nose Coronavirus COVID-19 PCR - Final 02/07/23 17:12 Mucosa - Nose Respiratory Panel (PCR) - Final Influenza A (Subtype H1) Physical Exam Const Constitutional Narrative: Intubated, sedated and mechanically ventilated. No ventilator dyssynchrony. HEENT normocephalic and head/scalp atraumatic Eyes PERRL and EOMs intact bilaterally Neck supple General: trachea midline and CVC in place Resp Auscultation: wheezes expiratory wheezes (End) and diminished lung sounds; Negative for rales or rhonchi Cardio regular rate, S1 normal heart sound, S2 normal heart sound, no murmurs and no rub GI normal to inspection, nondistended, normoactive bowel sounds Extremity no clubbing, cyanosis or edema Skin no rashes or lesions noted Neuro Sensorium / Orientation: sedated on vent Psych Mood & Affect: flat affect Charges/Coding Procedures Hospitalists Procedures: 11675 Critical Care 1st Hr
--- NOTE | 2023-02-10 09:19 | PN.HOSP_ITS ---
Subjective Subjective Intubated and sedated, no issues overnight Objective Data Objective Data Vital Signs: Vital Signs Temp Pulse Resp BP Pulse Ox O2 Del Method O2 Flow Rate 99.9 F H 84 14 133/86 H 95 Mechanical Ventilator 30 02/10/23 09:00 02/10/23 09:00 02/10/23 09:00 02/10/23 09:00 02/10/23 09:00 02/10/23 09:00 02/09/23 08:31 FiO2 30 02/10/23 09:00 Oxygen Flow Rate (L/min) 30 Oxygen Delivery Method Mechanical Ventilator Weight: 131 lb 13.383 oz Body Mass Index (BMI) 25.9 Intake & Output: Intake and Output for Last 24 Hours 02/09/23 02/10/23 02/11/23 03:59 03:59 03:59 Intake Total 2778.81 / 2815.61 1753.28 / 1785.28 351.09 / 351.09 Output Total 750 / 750 750 / 750 210 / 210 Balance 2028.81 / 2065.61 1003.28 / 1035.28 141.09 / 141.09 Lab / Micro Data 02/10/23 03:22 02/10/23 03:22 Labs: Laboratory Results - last 24 hr 02/09/23 03:40: Diff Path Review Reviewed 02/09/23 13:39: POC Glucose 200 H 02/09/23 18:44: POC Glucose 174 H 02/10/23 00:07: POC Glucose 219 H 02/10/23 03:22: WBC 15.5 H, RBC 4.18 L, Hgb 11.9 L, Hct 38.1, MCV 91.1, MCH 28.5, MCHC 31.2 L, RDW Std Deviation 44.8 H, RDW Coeff of Angie 13.3, Plt Count 400, MPV 10.9, Neut % (Auto) Not Reportable, Absolute Neuts (auto) 13.3 H, Absolute Lymphs (auto) 0.93, Total Counted 100, Neutrophils % (Manual) 79 H, Band Neutrophils % 1, Lymphocytes % (Manual) 6 L, Monocytes % (Manual) 8, Metamyelocytes % 6 H, Nucleated RBCs/100 WBC 2, Diff Path Review May , Platelet Estimate ADEQUATE, RBC Morphology NORM C+C, Sodium 134 L, Potassium 4.0, Chloride 100, Carbon Dioxide 29.0, Anion Gap 5, BUN 19 H, Creatinine 0.86, Estim Creat Clear Calc 49.34, Est GFR (MDRD) Af Amer 86, Est GFR (MDRD) Non-Af 71, BUN/Creatinine Ratio 22.1 H, Glucose 215 H, Calcium 7.6 L 02/10/23 04:59: POC Glucose 216 H Micro: Microbiology 02/07/23 17:00 Sputum, Induced/Lukens Gram Stain - Final 02/07/23 17:00 Sputum, Induced/Lukens Respiratory Culture - Final Staphylococcus aureus 02/07/23 21:45 Urine Catheter - Uribe Legionella Antigen - Final 02/07/23 21:45 Urine Catheter - Uribe Streptococcus pneumoniae Antigen (M - Final Streptococcus pneumonia Ag 02/07/23 17:12 Mucosa - Nose Coronavirus COVID-19 PCR - Final 02/07/23 17:12 Mucosa - Nose Respiratory Panel (PCR) - Final Influenza A (Subtype H1) Physical Exam Const General Appearance: intubated and patient mechanically ventilated HEENT normocephalic Eyes PERRL and conjunctivae normal Neck supple and no JVD Resp normal respiratory effort, no retractions and no use of accessory muscles Auscultation: wheezes; Negative for crackles, rales or rhonchi Cardio regular rate, regular rhythm, S1 normal heart sound, S2 normal heart sound and no murmurs GI soft to palpation and non-distended; Negative for hepatosplenomegaly Extremity no clubbing, cyanosis or edema Skin no rashes or lesions noted Neuro Sensorium / Orientation: sedated on vent Psych Appearance: intubated Assessment & Plan Assessment/Plan (1) COPD exacerbation: (2) Acute hypoxemic respiratory failure: PLAN: Plan 1. Acute on chronic hypoxic respiratory failure secondary to COPD exacerbation in the setting of influenza A and pneumococcal pneumonia with septic shock/non- STEMI with cardiac arrest ? Vasopressors were able to be weaned off last evening ? Remains mechanically ventilated and intubated today ? Continue with steroids as well as breathing treatments and antibiotics ? Cultures from the outside hospital showing staph infection in her blood vancomycin was added to her antibiotics ? Cardiology was consulted secondary to a CODE BLUE last night she went to the [facility] [facility] and found to have triple-vessel disease. Cardiology recommends that o nce her respiratory status is improved and she is off of pressors can evaluate for cardiac evaluation ? We will continue with the heparin drip 2. HTN/history of TIA ? We will hold her blood pressure medications as she is currently on vasopressors ? Continue with aspirin and Plavix as well as high-dose statin DVT: Heparin drip Charges/Coding Visit Charges Inpatient E&M: 42947 Subs Hosp L2
[2023-02-10 10:15] LABS: Pathologist Review Reviewed
--- NOTE | 2023-02-10 11:19 | EKG12_ITS ---
Test Reason : Blood Pressure : / mmHG Vent. Rate : 146 BPM Atrial Rate : 000 BPM P-R Int : 000 ms QRS Dur : 082 ms QT Int : 334 ms P-R-T Axes : 000 087 179 degrees QTc Int : 520 ms Critical Test Result: High HR Atrial fibrillation with rapid ventricular response Anterior infarct , age undetermined ST & T wave abnormality, consider inferolateral ischemia Abnormal ECG When compared with ECG of 12-FEB-2023 11:16, MANUAL COMPARISON REQUIRED, DATA IS UNCONFIRMED Confirmed by ELIEZER HERNANDEZ, ELIU ([id number]), assignment editor SHEA BRUCE ([id number]) on 02/16/2023 10:27:14 AM Referred By: Confirmed By:ELIU MARTINS MD
[2023-02-10 11:45] LABS: Bedside Glucose 176 mg/dL (74-106)
--- NOTE | 2023-02-10 13:12 | ECHOL_ITS ---
Reason For Study: PERICARDIAL EFFUSION Procedure This was a limited 2D transthoracic echocardiogram. The study was technically difficult. Patient was scanned in sitting position during reflux assessment. Pt. on vent. Exam performed portable in ICU/CCU. Left Ventricle Severe LV systolic dysfunction. Estimated ejection fraction 15%. Pericardium/Pleural Small to moderate-sized anterior pericardial effusion. Likely clot. No significant change change from previous echo. MMode/2D Measurements & Calculations LAV(MOD-bp): 30.5 ml LVAd ap4: 26.1 cm2 LVAd ap2: 19.6 cm2 LAV(MOD-bp) Indexed: 19.5 ml/m2 LVLd ap4: 7.0 cm LVLd ap2: 6.8 cm LAV(MOD-sp2): 34.9 ml EDV(MOD-sp4): 79.5 ml EDV(MOD-sp2): 48.0 ml LAV(MOD-sp4): 26.7 ml EDV(sp4-el): 82.1 ml EDV(sp2-el): 48.1 ml LVAs ap4: 21.8 cm2 LVAs ap2: 17.0 cm2 LVLs ap4: 6.9 cm LVLs ap2: 6.4 cm ESV(MOD-sp4): 55.9 ml ESV(MOD-sp2): 37.5 ml ESV(sp4-el): 58.5 ml ESV(sp2-el): 38.3 ml EF(MOD-sp4): 29.7 % EF(MOD-sp2): 21.7 % EF(sp4-el): 28.7 % SV(MOD-sp4): 23.6 ml SV(MOD-sp2): 10.4 ml SV(sp4-el): 23.6 ml LA A4 area: 12.2 cm2 RA A4 area: 6.1 cm2 ECHO/Echo, Limited Study Interpretation Summary Severe LV systolic dysfunction. Estimated ejection fraction 15%. Small to moderate-sized anterior pericardial effusion. Likely clot. No signific ant change change from previous echo. Ordering Physician: Jose Martin Witt Performed By: Tammy Villarreal RDCS
[2023-02-10] MEDS: Acetaminophen 650 MG/20 ML UDC GT (17:18)
[2023-02-10 17:39] LABS: Bedside Glucose 213 mg/dL (74-106)
[2023-02-10] MEDS: dexMEDEtomidine 400 MCG in 0.9% Normal Saline (100mL Bag) 96 ML 13.5 MCG CONT INF (18:16)
[2023-02-10] MEDS: Ceftriaxone 1 GM/50 ML BAG IV (20:42)
[2023-02-10] MEDS: Atorvastatin Calcium 80 MG Tablet GT (20:42)
[2023-02-11] VITALS (34 sets, daily range): BP systolic 86–137; BP diastolic 56–98; PULSE 76–147; RESP 14–118; TEMP 38.6–39; O2SAT 92–100; BMI 27.2
[2023-02-11] MEDS: Insulin Lispro 100 UNIT/ML INSULN.PEN SC ×5 (00:01→23:04)
[2023-02-11] MEDS: Acetaminophen 650 MG/20 ML UDC GT ×4 (00:04→23:05)
[2023-02-11 00:21] LABS: Bedside Glucose 214 mg/dL (74-106)
[2023-02-11] MEDS: dexMEDEtomidine 400 MCG in 0.9% Normal Saline (100mL Bag) 96 ML 13.5 MCG CONT INF ×2 (01:41→10:08)
[2023-02-11] MEDS: 0.9% Saline Lock 10 ML Syringe IV (02:57)
[2023-02-11] MEDS: CHLORHEXIDINE GLUC 2% CLOTH 1 EACH TOWELETTE TOPICAL (02:58)
[2023-02-11 03:04] LABS: Hematocrit 40.9 % (37-47); Hemoglobin 12.7 g/dL (12.0-15.0); Mean Corp Hgb Conc 31.1 g/dL (32-36); Mean Corpuscular Hgb 28.6 pg (27.0-32.0); Mean Corpuscular Volume 92.1 fL (81-99); POSITIVE COUNT YES; POSITIVE MORPHOLOGY YES; Platelet Count 494 K/mm3 (150-450); RBC Distribution Width CV 13.4 % (11.6-14.6); RBC Distribution Width SD 45.3 fl (35.1-43.9); Red Blood Count 4.44 M/mm3 (4.2-5.4)
[2023-02-11 03:07] LABS: Differential Indicated MANUAL DIFF
[2023-02-11 03:17] LABS: Anion Gap 6 (5-15); BUN 23 mg/dL (7-18); BUN/Creat Ratio 25.5 RATIO (10-20); Calcium,Total 7.4 mg/dL (8.5-10.1); Chloride 103 mmol/L (98-107); EST Glomerular Filtration Rate 67 mL/min (>60); Est Glom Filt Rate - Afr Amer 81 mL/min (>60); Estimated Creatinine Clearance 47.15 ml/min; Glucose 265 mg/dL (74-106); Potassium 4.4 mmol/L (3.5-5.1); Sodium Level 137 mmol/L (136-145)
[2023-02-11 04:20] LABS: Corrected WBC 22.1 K/mm3 (4.4-11.0); Nucleated Red Bld Cells,Manual 5 % (0-5)
[2023-02-11 04:22] LABS: Neutrophil-Band 5 % (0-5); Neutrophil-Segmented 85 % (47-70); Promyelocyte 1 % (0-0); Total Cells Counted 100 (MANUAL DIFF)
[2023-02-11 04:23] LABS: Lymphocyte 5 % (19-41); Monocyte 8 % (0-10); Myelocyte 1 % (0-0)
[2023-02-11 04:24] LABS: Absolute Lymphocyte Count 1.11 X10^3/uL (0.83-4.51); Absolute Neutrophil Count 18.8 X10^3/uL (2.0-7.7); Atypical Lymphocyte 1+ %
[2023-02-11 04:25] LABS: Platelet Estimate SLT INC (ADEQ); Platelet Morphology LARGE
[2023-02-11] MEDS: Miconazole Nitrate 43 GM Bottle 1 APPLIC TOPICAL ×3 (04:57→21:55)
[2023-02-11 05:19] LABS: Bedside Glucose 234 mg/dL (74-106)
[2023-02-11] MEDS: Ipratropium/Albuterol Sulfate 3 ML AMPUL.NEB INHALATION ×4 (06:55→19:43)
--- NOTE | 2023-02-11 06:57 | CPS ---
Pt was placed on SBT 06/12 and failed at 4 minutes, TV 159, RR 42, HR129. informed Yaa RN. Pt was placed back on previous AV/VC settings, HR 111 , RR 18, TV 407, SpO2=97
--- NOTE | 2023-02-11 09:06 | PN.CARD_ITS ---
Subjective Subjective Remains intubated. Following commands per RN. Objective Data Vital Signs: Vital Signs Temp Pulse Resp BP Pulse Ox O2 Del Method O2 Flow Rate 101.8 F H 119 H 118 H 134/66 H 96 Mechanical Ventilator 30 02/11/23 07:00 02/11/23 07:01 02/11/23 07:01 02/11/23 07:00 02/11/23 07:01 02/11/23 07:50 02/09/23 08:31 FiO2 35 02/11/23 07:50 Oxygen Flow Rate (L/min) 30 Oxygen Delivery Method Mechanical Ventilator Weight: 138 lb 10.732 oz Body Mass Index (BMI) 27.2 Intake & Output: Intake and Output for Last 24 Hours 02/09/23 02/10/23 02/11/23 23:59 23:59 23:59 Intake Total 1906.66 / 1938.66 1901.63 / 1922.63 663.13 / 663.13 Output Total 860 / 1000 700 / 700 125 / 125 Balance 1046.66 / 938.66 1201.63 / 1222.63 538.13 / 538.13 Lab / Micro Data 02/11/23 03:00 02/11/23 03:00 Labs: Laboratory Results - last 24 hr 02/08/23 04:15: Diff Path Review Reviewed 02/10/23 11:11: POC Glucose 176 H 02/10/23 17:18: POC Glucose 213 H 02/10/23 23:59: POC Glucose 214 H 02/11/23 03:00: WBC NON ACOUSTIC OPERATOR, Corrected WBC 22.1 H, RBC 4.44, Hgb 12.7, Hct 40.9, MCV 92.1, MCH 28.6, MCHC 31.1 L, RDW Std Deviation 45.3 H, RDW Coeff of Angie 13.4, Plt Count 494 H, MPV 11.0, Neut % (Auto) Not Reportable, Absolute Neuts (auto) 18.8 H, Absolute Lymphs (auto) 1.11, Total Counted 100, Neutrophils % (Manual) 85 H, Band Neutrophils % 5, Lymphocytes % (Manual) 5 L, Monocytes % (Manual) 8, Myelocytes % 1 H, Promyelocytes % 1 H, Nucleated RBCs/100 WBC 5, Diff Path Review May foll, Atypical Lymphocytes 1+, Platelet Estimate SLT INC, Plt Morphology Comment LARGE, Sodium 137, Potassium 4.4, Chloride 103, Carbon Dioxide 28.0, Anion Gap 6, BUN 23 H, Creatinine 0.90, Estim Creat Clear Calc 47.15, Est GFR (MDRD) Af Amer 81, Est GFR (MDRD) Non-Af 67, BUN/Creatinine Ratio 25.5 H, Glucose 265 H, Calcium 7.4 L 02/11/23 04:58: POC Glucose 234 H Cardiology Labs/Tests 02/11/23 03:00: WBC NON ACOUSTIC OPERATOR, Corrected WBC 22.1 H, RBC 4.44, Hgb 12.7, Hct 40.9, MCV 92.1, MCH 28.6, MCHC 31.1 L, Plt Count 494 H, MPV 11.0, Neut % (Auto) Not Reportable, Absolute Neuts (auto) 18.8 H, Total Counted 100, Neutrophils % (Manual) 85 H, Band Neutrophils % 5, Lymphocytes % (Manual) 5 L, Monocytes % (Manual) 8, Myelocytes % 1 H, Promyelocytes % 1 H, Sodium 137, Potassium 4.4, Chloride 103, Carbon Dioxide 28.0, Anion Gap 6, BUN 23 H, Creatinine 0.90, Est GFR (MDRD) Af Amer 81, Est GFR (MDRD) Non-Af 67, BUN/Creatinine Ratio 25.5 H, Glucose 265 H, Calcium 7.4 L Rhythm: EKG: ECHO: Stress Test: Cardiac Cath: PCI: CT Surgery: Holter monitor: EPS: PPM: CXR: Chest CT Scan: Radiography Diagnostic Testing: Radiology Impression Echocardiogram 02/10/23 13:12 Interpretation Summary Severe LV systolic dysfunction. Estimated ejection fraction 15%. Small to moderate-sized anterior pericardial effusion. Likely clot. No significant change change from previous echo. Ordering Physician: Jose Martin Witt Performed By: Tammy Villarreal ANDIE Physical Exam Narrative Sedated. Mechanically ventilated. Assessment & Plan Assessment/Plan (1) Cardiac arrest: PLAN: In the setting of acute hypoxemic respiratory failure. Coronary angiography revealed severe triple-vessel coronary artery disease however with DIEGO III flow in both left anterior descending artery and left circumflex cor onary artery. Chronic total occlusion of the right coronary artery with excellent [id number] collaterals. Continue to monitor. (2) Acute hypoxemic respiratory failure: PLAN: Mechanically ventilated. Follow as per critical care. (3) NSTEMI (non-ST elevated myocardial infarction): PLAN: See #1 above. Continue medical management. Will need a heart team approach towards revascularization when she recovers from her respiratory issues. (4) Coronary artery disease: PLAN: See #1 and 3 above. (5) COPD exacerbation: PLAN: As per pulmonology/critical care. (6) Left ventricular systolic dysfunction (LVSD): PLAN: Beta-blockers and SHANNON inhibitors when hemodynamically stable. (7) Septic shock: PLAN: Critical care following.
--- NOTE | 2023-02-11 09:12 | PN.HOSP_ITS ---
Reason for Visit Reason for Visit: Diagnoses Sepsis, unspecified organism (02/07/23) Non-ST elevation (NSTEMI) myocardial infarction (02/07/23) Atherosclerotic heart disease of [place] coronary artery without angina pectoris (02/07/23) Cardiac arrest, cause unspecified (02/07/23) Heart disease, unspecified (02/07/23) Chronic obstructive pulmonary disease with (acute) exacerbation (02/07/23) Acute respiratory failure with hypoxia (02/07/23) Severe sepsis with septic shock (02/07/23) Objective Data Objective Data Vital Signs: Vital Signs Temp Pulse Resp BP Pulse Ox O2 Del Method O2 Flow Rate 101.8 F H 119 H 118 H 134/66 H 96 Mechanical Ventilator 30 02/11/23 07:00 02/11/23 07:01 02/11/23 07:01 02/11/23 07:00 02/11/23 07:01 02/11/23 07:50 02/09/23 08:31 FiO2 35 02/11/23 07:50 Oxygen Flow Rate (L/min) 30 Oxygen Delivery Method Mechanical Ventilator Weight: 62.9 kg Body Mass Index (BMI) 27.2 Intake & Output: Intake and Output for Last 24 Hours 02/09/23 02/10/23 02/11/23 23:59 23:59 23:59 Intake Total 1906.66 / 1938.66 1901.63 / 1922.63 663.13 / 663.13 Output Total 860 / 1000 700 / 700 125 / 125 Balance 1046.66 / 938.66 1201.63 / 1222.63 538.13 / 538.13 Lab / Micro Data 02/11/23 03:00 02/11/23 03:00 Labs: Laboratory Results - last 24 hr 02/08/23 04:15: Diff Path Review Reviewed 02/10/23 11:11: POC Glucose 176 H 02/10/23 17:18: POC Glucose 213 H 02/10/23 23:59: POC Glucose 214 H 02/11/23 03:00: WBC NAPHTHALENE OPERATOR, Corrected WBC 22.1 H, RBC 4.44, Hgb 12.7, Hct 40.9, MCV 92.1, MCH 28.6, MCHC 31.1 L, RDW Std Deviation 45.3 H, RDW Coeff of Angie 13.4, Plt Count 494 H, MPV 11.0, Neut % (Auto) Not Reportable, Absolute Neuts (auto) 18.8 H, Absolute Lymphs (auto) 1.11, Total Counted 100, Neutrophils % (Manual) 85 H, Band Neutrophils % 5, Lymphocytes % (Manual) 5 L, Monocytes % (Manual) 8, Myelocytes % 1 H, Promyelocytes % 1 H, Nucleated RBCs/100 WBC 5, Diff Path Review May foll, Atypical Lymphocytes 1+, Platelet Estimate SLT INC, Plt Morphology Comment LARGE, Sodium 137, Potassium 4.4, Chloride 103, Carbon Dioxide 28.0, Anion Gap 6, BUN 23 H, Creatinine 0.90, Estim Creat Clear Calc 47.15, Est GFR (MDRD) Af Amer 81, Est GFR (MDRD) Non-Af 67, BUN/Creatinine Ratio 25.5 H, Glucose 265 H, Calcium 7.4 L 02/11/23 04:58: POC Glucose 234 H Micro: Microbiology 02/07/23 17:00 Sputum, Induced/Lukens Gram Stain - Final 02/07/23 17:00 Sputum, Induced/Lukens Respiratory Culture - Final Staphylococcus aureus 02/07/23 21:45 Urine Catheter - Uribe Legionella Antigen - Final 02/07/23 21:45 Urine Catheter - Uribe Streptococcus pneumoniae Antigen (M - Final Streptococcus pneumonia Ag 02/07/23 17:12 Mucosa - Nose Coronavirus COVID-19 PCR - Final 02/07/23 17:12 Mucosa - Nose Respiratory Panel (PCR) - Final Influenza A (Subtype H1) Radiography Diagnostic Testing: Radiology Impression Echocardiogram 02/10/23 13:12 Interpretation Summary Severe LV systolic dysfunction. Estimated ejection fraction 15%. Small to moderate-sized anterior pericardial effusion. Likely clot. No significant change change from previous echo. Ordering Physician: Jose Martin Witt Performed By: Tammy Villarreal RDCS Physical Exam Narrative GENERAL: Patient on the vent HEENT: Atraumatic; normocephalic EYES; Anicteric, Normal Conjunctiva NECK; supple, normal thyroid, RESPIRATORY: Diminished to auscultation CARDIOVASCULAR: Regular S1 S2, GI: soft, normoactive bowel sounds, : No Renal angle tenderness; EXTREMITIES: No edema, no clubbing, MUSCULOSKELETAL: no muscle wasting NEURO: Awake on the vent SKIN: No Rash PSYCH; Flat affect Assessment & Plan Assessment/Plan (1) COPD exacerbation: (2) Acute hypoxemic respiratory failure: PLAN: Plan 1. Acute on chronic hypoxemic respiratory failure The patient has a baseline of reported COPD of unknown severity along with chronic hypoxemic respiratory failure with a baseline requirement of 2 L/min. She presented with worsening shortness of breath in the setting of influenza A and pneumococcal pneumonia. The patient was ultimately intubated. Plan to continue assist-control mode of mechanical ventilation and wean FiO2 and PEEP to maintain saturations at or above 90%. The patient will be continued on scheduled bronchodilators, steroids, antibiotics and Tamiflu. Okay to continue fentanyl for sedation. However, I would transition the patient from a Versed drip to Precedex. 2. Septic shock The patient presented to the hospital with sepsis due to influenza A and pneumococcal pneumonia with acute sepsis related organ dysfunction as evidenced by lactic acidemia and respiratory failure requiring invasive mechanical ventilatory support. The patient will be continued on vasopressor support to ma intain a mean arterial pressure at or above 65 mmHg. Continue supportive care along with antimicrobials. 3. NSTEMI/cardiac arrest The patient's hospital course has been complicated by a V-fib cardiac arrest with successful ROSC. The patient underwent cardiac catheterization which revealed multivessel coronary disease, for which evaluation by CT surgery was recommended. Will defer the urgency with regard to her revascularization to cardiology, who is following to assist with medical management. 4. History of tobacco dependency/hypertension/history of TIA Complicates care, management, recovery and prognosis. Continue to hold baseline antihypertensives. 1. Acute on chronic hypoxic respiratory failure secondary to COPD exacerbation in the setting of influenza A and pneumococcal pneumonia with septic shock/non- STEMI with cardiac arrest ? Vasopressors were able to be weaned off last evening ? Remains mechanically ventilated and intubated today ? Continue with steroids as well as breathing treatments and antibiotics ? Cultures from the outside hospital showing staph infection in her blood vancomycin was added to her antibiotics ? Cardiology was consulted secondary to a CODE BLUE last night she went to the [facility] and found to have triple-vessel disease. Cardiology recommends that once her respiratory status is improved and she is off of pressors can evaluate for cardiac evaluation ? We will continue with the heparin drip 2. HTN/history of TIA ? We will hold her blood pressure medications as she is currently on vasopressors ? Continue with aspirin and Plavix as well as high-dose statin DVT: Heparin drip
--- NOTE | 2023-02-11 09:12 | PCM.PN.HOSP ---
Reason for Visit Reason for Visit: Diagnoses Sepsis, unspecified organism (02/07/23) Non-ST elevation (NSTEMI) myocardial infarction (02/07/23) Atherosclerotic heart disease of [place] coronary artery without angina pectoris (02/07/23) Cardiac arrest, cause unspecified (02/07/23) Heart disease, unspecified (02/07/23) Chronic obstructive pulmonary disease with (acute) exacerbation (02/07/23) Acute respiratory failure with hypoxia (02/07/23) Severe sepsis with septic shock (02/07/23) Subjective Subjective Patient is a 62-year-old gentleman who was transferred from an outside hospital in respiratory failure. Manage initially with noninvasive ventilation patient later went into cardiac arrest and was successfully resuscitated with ROSC S. Was found to have elevated troponin underwent left heart catheterization which revealed multivessel coronary artery disease. Patient remains on the vent Objective Data Objective Data Vital Signs: Vital Signs Temp Pulse Resp BP Pulse Ox O2 Del Method O2 Flow Rate 101.8 F H 119 H 118 H 134/66 H 96 Mechanical Ventilator 30 02/11/23 07:00 02/11/23 07:01 02/11/23 07:01 02/11/23 07:00 02/11/23 07:01 02/11/23 07:50 02/09/23 08:31 FiO2 35 02/11/23 07:50 Oxygen Flow Rate (L/min) 30 Oxygen Delivery Method Mechanical Ventilator Weight: 62.9 kg Body Mass Index (BMI) 27.2 Intake & Output: Intake and Output for Last 24 Hours 02/09/23 02/10/23 02/11/23 23:59 23:59 23:59 Intake Total 1906.66 / 1938.66 1901.63 / 1922.63 663.13 / 663.13 Output Total 860 / 1000 700 / 700 125 / 125 Balance 1046.66 / 938.66 1201.63 / 1222.63 538.13 / 538.13 Lab / Micro Data 02/11/23 03:00 02/11/23 03:00 Labs: Laboratory Results - last 24 hr 02/08/23 04:15: Diff Path Review Reviewed 02/10/23 11:11: POC Glucose 176 H 02/10/23 17:18: POC Glucose 213 H 02/10/23 23:59: POC Glucose 214 H 02/11/23 03:00: WBC TELEPHONE ANSWERER, Corrected WBC 22.1 H, RBC 4.44, Hgb 12.7, Hct 40.9, MCV 92.1, MCH 28.6, MCHC 31.1 L, RDW Std Deviation 45.3 H, RDW Coeff of Angie 13.4, Plt Count 494 H, MPV 11.0, Neut % (Auto) Not Reportable, Absolute Neuts (auto) 18.8 H, Absolute Lymphs (auto) 1.11, Total Counted 100, Neutrophils % (Manual) 85 H, Band Neutrophils % 5, Lymphocytes % (Manual) 5 L, Monocytes % (Manual) 8, Myelocytes % 1 H, Promyelocytes % 1 H, Nucleated RBCs/100 WBC 5, Diff Path Review May foll, Atypical Lymphocytes 1+, Platelet Estimate SLT INC, Plt Morphology Comment LARGE, Sodium 137, Potassium 4.4, Chloride 103, Carbon Dioxide 28.0, Anion Gap 6, BUN 23 H, Creatinine 0.90, Estim Creat Clear Calc 47.15, Est GFR (MDRD) Af Amer 81, Est GFR (MDRD) Non-Af 67, BUN/Creatinine Ratio 25.5 H, Glucose 265 H, Calcium 7.4 L 02/11/23 04:58: POC Glucose 234 H Micro: Microbiology 02/07/23 17:00 Sputum, Induced/Lukens Gram Stain - Final 02/07/23 17:00 Sputum, Induced/Lukens Respiratory Culture - Final Staphylococcus aureus 02/07/23 21:45 Urine Catheter - Uribe Legionella Antigen - Final 02/07/23 21:45 Urine Catheter - Uribe Streptococcus pneumoniae Antigen (M - Final Streptococcus pneumonia Ag 02/07/23 17:12 Mucosa - Nose Coronavirus COVID-19 PCR - Final 02/07/23 17:12 Mucosa - Nose Respiratory Panel (PCR) - Final Influenza A (Subtype H1) Radiography Diagnostic Testing: Radiology Impression Echocardiogram 02/10/23 13:12 Interpretation Summary Severe LV systolic dysfunction. Estimated ejection fraction 15%. Small to moderate-sized anterior pericardial effusion. Likely clot. No significant change change from previous echo. Ordering Physician: Jose Martin Witt Performed By: Tammy Villarreal RDCS Physical Exam Narrative GENERAL: Patient on the vent HEENT: Atraumatic; normocephalic EYES; Anicteric, Normal Conjunctiva NECK; supple, normal thyroid, RESPIRATORY: Diminished to auscultation CARDIOVASCULAR: Regular S1 S2, GI: soft, normoactive bowel sounds, : No Renal angle tenderness; EXTREMITIES: No edema, no clubbing, MUSCULOSKELETAL: no muscle wasting NEURO: Awake on the vent SKIN: No Rash PSYCH; Flat affect Assessment & Plan Assessment/Plan (1) COPD exacerbation: (2) Acute hypoxemic respiratory failure: PLAN: Plan Patient is a 62-year-old gentleman who was transferred from an outside hospital in respiratory failure. Manage initially with noninvasive ventilation patient later went into cardiac arrest and was successfully resuscitated with ROSC S. Was found to have elevated troponin underwent left heart catheterization which revealed multivessel coronary artery disease. Patient remains on the vent 1. Acute on chronic hypoxic respiratory failure ? Patient failed initial treatment with noninvasive ventilation went into cardiac arrest successfully intubated. Patient has since been managed by pulmonary medicine 2. Cardiac arrest ? Patient rhythm was 1 of V-fib successfully resuscitated using ACLS with ROSC. 3. Acute non-STEMI complicated by cardiac arrest ? Patient underwent successful left heart catheterization which demonstrated multivessel disease. Cardiology recommended evaluation by cardiothoracic surgery. Decision for patient to undergo the evaluation by cardiothoracic surgery deferred to cardiology 4. Septic shock ? Secondary to influenza 80 and pneumococcal pneumonia. Present on admission. Patient has since been managed with broad-spectrum antibiotic therapy in addition to Tamiflu as well as mechanical ventilation 5. Tobacco dependence ? Plan is to activities counselor patient on cessation following extubation from the vent 6. Essential hypertension ? Per history patient antihypertensives on hold 7. DVT prophylaxis ? SC Lovenox Time spent in the patient's overall evaluation,decision-making process, review of diagnostic data, adjustment of management, discussion with other providers, nursing nursing and ancillary staff involved in patient's care documentation, 55 Minutes Charges/Coding Visit Charges Inpatient E&M: 79422 [facility] L3
[2023-02-11] MEDS: Clopidogrel Bisulfate 75 MG Tablet GT (10:06)
[2023-02-11] MEDS: Aspirin 81 MG TAB.CHEW GT (10:06)
[2023-02-11] MEDS: Insulin Glargine-YFGN 100 UNIT/ML Pen SC (10:06)
[2023-02-11] MEDS: Senna/Docusate Sodium 1 Tablet 2 TABLET GT ×2 (10:06→22:10)
[2023-02-11] MEDS: Chlorhexidine 15 ML PO ×2 (10:06→21:55)
[2023-02-11] MEDS: Pantoprazole Sodium 40 MG in 0.9% Normal Saline (100mL MB+) 100 ML 330 MG IV ×2 (10:07→22:03)
[2023-02-11] MEDS: Polyethylene Glycol 3350 17 GM PACKET PO ×2 (10:15→22:03)
[2023-02-11 10:26] LABS: Pathologist Review Reviewed
[2023-02-11] MEDS: fentaNYL drip 100 ML 7.5 MCG CONT INF (11:10)
[2023-02-11] MEDS: Oseltamivir Phosphate 30 MG Capsule GT ×2 (11:15→22:02)
[2023-02-11] MEDS: Vital AF 1.2 Cal Liquid 1,000 ML 45 ML GT (12:35)
[2023-02-11 12:47] LABS: Bedside Glucose 247 mg/dL (74-106)
--- NOTE | 2023-02-11 15:56 | PN.CC_ITS ---
Assessment & Plan Assessment/Plan (1) COPD exacerbation: (2) NSTEMI (non-ST elevated myocardial infarction): (3) Acute hypoxemic respiratory failure: (4) Cardiac arrest: PLAN: Plan RECOMMENDATIONS: 1. Continue mechanical ventilation. Wean O2 as tolerated. She failed SBT today with tachypnea and hypoxia as well as tachycardia. 2. She is tolerating tube feeds as well as PT and OT while on the vent 3. Continue antimicrobials and Tamiflu. 4. Continue scheduled bronchodilators and steroids. 5. Started on Lantus given persistent hyperglycemia 6. Spontaneous breathing and awakening trials per protocol IMPRESSIONS: 1. Acute on chronic hypoxemic respiratory failure The patient has a baseline of reported COPD of unknown severity along with chronic hypoxemic respiratory failure with a baseline requirement of 2 L/min. She presented with worsening shortness of breath in the setting of influenza A and pneumococcal pneumonia. The patient was ultimately intubated. Plan to continue assist-control mode of mechanical ventilation and wean FiO2 and PEEP to maintain saturations at or above 90%. The patient will be continued on scheduled bronchodilators, steroids, antibiotics and Tamiflu. Will keep steroi ds at current dosing until able to be extubated. Spontaneous breathing and awakening trials per protocol. 2. Septic shock Off Levophed. The patient presented to the hospital with sepsis due to influenza A, pneumococcal and MSSA pneumonia with acute sepsis related organ dysfunction as evidenced by lactic acidemia and respiratory failure requiring invasive mechanical ventilatory support. Patient does appear to have MSSA growing from multiple cultures also. Continue supportive care along with antimicrobials. Patient is no longer requiring pressors or having fevers 3. NSTEMI/cardiac arrest The patient's hospital course has been complicated by a V-fib cardiac arrest with successful ROSC. The patient underwent cardiac catheterization which revealed multivessel coronary disease, for which evaluation by CT surgery was recommended. Will defer the urgency with regard to her revascularization to cardiology, who is following to assist with medical management. Patient has the potential of a clot in the pericardium, so no heparin is recommended 4. History of tobacco dependency/hypertension/history of TIA Complicates care, management, recovery and prognosis. Continue to hold baseline antihypertensives. 5. Prolonged QTc Cardiology following. May need to discontinue amiodarone. Defer to cardiology. Will discontinue Zithromax, but other antibiotics are necessary TIME: 36 minutes of critical care time, independent of procedures, was spent addressing the patient's acute on chronic hypoxemic respiratory failure, septic shock, NSTEMI/cardiac arrest, review of all data and collaboration with the care team. Subjective Subjective She failed SBT with tachycardia and hypoxia as well as increased respiratory rate. She follows commands when sedation is weaned Objective Data Objective Data Vital Signs: Vital Signs Temp Pulse Resp BP Pulse Ox O2 Del Method O2 Flow Rate 38.9 C H 93 18 105/63 96 Mechanical Ventilator 30 02/11/23 14:00 02/11/23 14:43 02/11/23 14:43 02/11/23 14:00 02/11/23 14:43 02/11/23 14:00 02/09/23 08:31 FiO2 35 02/11/23 14:43 Oxygen Flow Rate (L/min) 30 Oxygen Delivery Method Mechanical Ventilator Weight: 62.9 kg Body Mass Index (BMI) 27.2 Intake & Output: Intake and Output for Last 24 Hours 02/09/23 02/10/23 02/11/23 23:59 23:59 23:59 Intake Total 1906.66 / 1938.66 1901.63 / 1922.63 1235.29 / 1235.29 Output Total 860 / 1000 700 / 700 325 / 325 Balance 1046.66 / 938.66 1201.63 / 1222.63 910.29 / 910.29 Lab / Micro Data 02/11/23 03:00 02/11/23 03:00 Labs: Laboratory Results - last 24 hr 02/10/23 03:22: Diff Path Review Reviewed 02/10/23 17:18: POC Glucose 213 H 02/10/23 23:59: POC Glucose 214 H 02/11/23 03:00: WBC MACHINE QUILT STUFFER, Corrected WBC 22.1 H, RBC 4.44, Hgb 12.7, Hct 40.9, MCV 92.1, MCH 28.6, MCHC 31.1 L, RDW Std Deviation 45.3 H, RDW Coeff of Angie 13.4, Plt Count 494 H, MPV 11.0, Neut % (Auto) Not Reportable, Absolute Neuts (auto) 18.8 H, Absolute Lymphs (auto) 1.11, Total Counted 100, Neutrophils % (Manual) 85 H, Band Neutrophils % 5, Lymphocytes % (Manual) 5 L, Monocytes % (Manual) 8, Myelocytes % 1 H, Promyelocytes % 1 H, Nucleated RBCs/100 WBC 5, Diff Path Review May foll, Atypical Lymphocytes 1+, Platelet Estimate SLT INC, Plt Morphology Comment LARGE, Sodium 137, Potassium 4.4, Chloride 103, Carbon Dioxide 28.0, Anion Gap 6, BUN 23 H, Creatinine 0.90, Estim Creat Clear Calc 47.15, Est GFR (MDRD) Af Amer 81, Est GFR (MDRD) Non-Af 67, BUN/Creatinine Ratio 25.5 H, Glucose 265 H, Calcium 7.4 L 02/11/23 04:58: POC Glucose 234 H 02/11/23 12:30: POC Glucose 247 H Micro: Microbiology 02/08/23 18:15 Blood Culture (Wb) - Right Hand Blood Culture - Preliminary No growth in 48 hours. 02/08/23 18:05 Blood Culture (Wb) - Line Draw Blood Culture - Preliminary No growth in 48 hours. 02/07/23 17:00 Sputum, Induced/Lukens Gram Stain - Final 02/07/23 17:00 Sputum, Induced/Lukens Respiratory Culture - Final Staphylococcus aureus 02/07/23 21:45 Urine Catheter - Uribe Legionella Antigen - Final 02/07/23 21:45 Urine Catheter - Uribe Streptococcus pneumoniae Antigen (M - Final Streptococcus pneumonia Ag 02/07/23 17:12 Mucosa - Nose Coronavirus COVID-19 PCR - Final 02/07/23 17:12 Mucosa - Nose Respiratory Panel (PCR) - Final Influenza A (Subtype H1) Radiography Diagnostic Testing: Radiology Impression Echocardiogram 02/10/23 13:12 Interpretation Summary Severe LV systolic dysfunction. Estimated ejection fraction 15%. Small to moderate-sized anterior pericardial effusion. Likely clot. No significant change change from previous echo. Ordering Physician: Jose Martin Witt Performed By: Tammy Villarreal RDCS Physical Exam Const Constitutional Narrative: Intubated, sedated and mechanically ventilated. No ventilator dyssynchrony. HEENT normocephalic and head/scalp atraumatic Eyes PERRL and EOMs intact bilaterally Neck supple General: trachea midline and CVC in place Resp Auscultation: wheezes expiratory wheezes (End) and diminished lung sounds; Negative for rales or rhonchi Cardio regular rate, regular rhythm, S1 normal heart sound, S2 normal heart sound, no murmurs and no rub GI normal to inspection, nondistended, normoactive bowel sounds Extremity no clubbing, cyanosis or edema Skin no rashes or lesions noted Neuro Sensorium / Orientation: sedated on vent Psych Mood & Affect: flat affect Charges/Coding Procedures Hospitalists Procedures: [id number] [facility] 1[facility] Hr
[2023-02-11] MEDS: dexMEDEtomidine 400 MCG in 0.9% Normal Saline (100mL Bag) 96 ML 18.8999999999999986 MCG CONT INF ×2 (16:30→21:48)
[2023-02-11 17:48] LABS: Bedside Glucose 247 mg/dL (74-106)
[2023-02-11] MEDS: fentaNYL drip 100 ML 12.5 MCG CONT INF (20:00)
[2023-02-11] MEDS: Atorvastatin Calcium 80 MG Tablet GT (22:02)
[2023-02-11] MEDS: Ceftriaxone 1 GM/50 ML BAG IV (22:05)
[2023-02-11 23:25] LABS: Bedside Glucose 202 mg/dL (74-106)
[2023-02-12] VITALS (37 sets, daily range): BP systolic 76–141; BP diastolic 52–98; PULSE 67–155; RESP 14–40; TEMP 38–39; O2SAT 92–100; BMI 27.6
[2023-02-12] MEDS: dexMEDEtomidine 400 MCG in 0.9% Normal Saline (100mL Bag) 96 ML 22 MCG CONT INF ×2 (02:47→06:44)
[2023-02-12 03:47] LABS: Absolute Lymphocyte Count 0.53 X10^3/uL (0.83-4.51); Absolute Neutrophil Count 23.4 X10^3/uL (2.0-7.7); Basophil# 0.09 X10^3/uL; Basophil% 0.3 % (0-1); Hemoglobin 11.7 g/dL (12.0-15.0); Lymphocyte # 0.53 X10^3/ul (0.83-4.51); Mean Corp Hgb Conc 30.8 g/dL (32-36); Mean Corpuscular Hgb 28.7 pg (27.0-32.0); Mean Corpuscular Volume 93.4 fL (81-99); Mean Platelet Vol. 11.3 fl (6.2-12.0); Monocyte# 1.27 X10^3/uL; Monocyte% 4.8 % (0-10); NRBC Flagged by Analyzer 0.2 % (0-5); Neutrophil # 23.42 X10^3/uL (2.7-7.7); Neutrophil % 88.5 % (47-70); POSITIVE DIFFERENTIAL YES; Platelet Count 421 K/mm3 (150-450); RBC Distribution Width CV 13.8 % (11.6-14.6); Red Blood Count 4.07 M/mm3 (4.2-5.4); White Blood Count 26.5 K/mm3 (4.4-11.0)
[2023-02-12 03:48] LABS: Differential Indicated SCAN CRITERIA MET
[2023-02-12 04:03] LABS: AST(SGOT) 27 U/L (15-37); Alanine Aminotransfer ALT/SGPT 47 U/L (13-56); Alkaline Phosphatase 52 U/L (45-117); Anion Gap 4 (5-15); BUN 23 mg/dL (7-18); BUN/Creat Ratio 30.5 RATIO (10-20); Bilirubin, Direct 0.12 mg/dL (0.00-0.30); Calcium,Total 7.1 mg/dL (8.5-10.1); Chloride 105 mmol/L (98-107); Creatinine, Serum 0.75 mg/dL (0.55-1.02); EST Glomerular Filtration Rate 83 mL/min (>60); Est Glom Filt Rate - Afr Amer 100 mL/min (>60); Estimated Creatinine Clearance 56.58 ml/min; Globulin 3.2 g/dL (2.2-4.2); Glucose 255 mg/dL (74-106); Magnesium 2.2 mg/dL (1.6-2.6); Phosphorus 1.3 mg/dL (2.5-4.9); Potassium 4.5 mmol/L (3.5-5.1); Protein, Total 5.2 g/dL (6.4-8.2); Sodium Level 138 mmol/L (136-145)
[2023-02-12] MEDS: fentaNYL drip 100 ML 7.5 MCG CONT INF (04:11)
[2023-02-12 04:15] LABS: Differential Comment SCANNED
[2023-02-12] MEDS: Miconazole Nitrate 43 GM Bottle 1 APPLIC TOPICAL ×3 (04:59→20:39)
[2023-02-12] MEDS: CHLORHEXIDINE GLUC 2% CLOTH 1 EACH TOWELETTE TOPICAL (04:59)
[2023-02-12] MEDS: Insulin Lispro 100 UNIT/ML INSULN.PEN SC ×4 (05:06→23:07)
[2023-02-12 05:27] LABS: Bedside Glucose 211 mg/dL (74-106)
[2023-02-12] MEDS: TITRATION PARAMETER CHANGE 1 EACH IV (06:45)
[2023-02-12] MEDS: Ipratropium/Albuterol Sulfate 3 ML AMPUL.NEB INHALATION ×3 (06:53→19:30)
--- NOTE | 2023-02-12 07:12 | PCM.PN.HOSP ---
Reason for Visit Reason for Visit: Diagnoses Sepsis, unspecified organism (02/07/23) Non-ST elevation (NSTEMI) myocardial infarction (02/07/23) Atherosclerotic heart disease of [place] coronary artery without angina pectoris (02/07/23) Cardiac arrest, cause unspecified (02/07/23) Heart disease, unspecified (02/07/23) Chronic obstructive pulmonary disease with (acute) exacerbation (02/07/23) Acute respiratory failure with hypoxia (02/07/23) Severe sepsis with septic shock (02/07/23) Subjective Subjective Patient seen remains awake on the vent. Apparently failed weaning trial this morning. Continues to spike fever. Case discussed with watch case polisher plan is for patient to be pancultured and antibiotic therapy broadened to include vancomycin to cover for possible MRSA and MDR Objective Data Objective Data Vital Signs: Vital Signs Temp Pulse Resp BP Pulse Ox O2 Del Method O2 Flow Rate 101.3 F H 100 16 101/65 98 Mechanical Ventilator 30 02/12/23 06:00 02/12/23 06:58 02/12/23 06:58 02/12/23 06:00 02/12/23 06:58 02/12/23 06:54 02/09/23 08:31 FiO2 30 02/12/23 06:58 Oxygen Flow Rate (L/min) 30 Oxygen Delivery Method Mechanical Ventilator Weight: 63.7 kg Body Mass Index (BMI) 27.6 Intake & Output: Intake and Output for Last 24 Hours 02/10/23 02/11/23 02/12/23 23:59 23:59 23:59 Intake Total 1901.63 / 1922.63 1996.78 / 2099.18 445.14 / 445.14 Output Total 700 / 700 525 / 525 600 / 600 Balance 1201.63 / 1222.63 1472.78 / 1574.18 -154.86 / -154.86 Lab / Micro Data 02/12/23 03:35 02/12/23 03:35 Labs: Laboratory Results - last 24 hr 02/10/23 03:22: Diff Path Review Reviewed 02/11/23 12:30: POC Glucose 247 H 02/11/23 17:29: POC Glucose 247 H 02/11/23 23:04: POC Glucose 202 H 02/12/23 03:35: WBC 26.5 H, RBC 4.07 L, Hgb 11.7 L, Hct 38.0, MCV 93.4, MCH 28.7, MCHC 30.8 L, RDW Std Deviation 47.0 H, RDW Coeff of Angie 13.8, Plt Count 421, MPV 11.3, Immature Gran % (Auto) 4.400 H, Neut % (Auto) 88.5 H, Lymph % (Auto) 2.0 L, [place] % (Auto) 4.8, Eos % (Auto) 0.0, Baso % (Auto) 0.3, Absolute Neuts (auto) 23.4 H, Absolute Lymphs (auto) 0.53 L, Nucleated RBC % 0.2, Differential Comment SCANNED, Sodium 138, Potassium 4.5, Chloride 105, Carbon Dioxide 29.0, Anion Gap 4 L, BUN 23 H, Creatinine 0.75, Estim Creat Clear Calc 56.58, Est GFR (MDRD) Af Amer 100, Est GFR (MDRD) Non-Af 83, BUN/Creatinine Ratio 30.5 H, Glucose 255 H, Calcium 7.1 L, Phosphorus 1.3 L, Magnesium 2.2, Total Bilirubin 0.30, Direct Bilirubin 0.12, AST 27, ALT 47, Alkaline Phosphatase 52, Total Protein 5.2 L, Albumin 2.0 L, Globulin 3.2 02/12/23 05:06: POC Glucose 211 H Micro: Microbiology 02/08/23 18:15 Blood Culture (Wb) - Right Hand Blood Culture - Preliminary No growth in 48 hours. 02/08/23 18:05 Blood Culture (Wb) - Line Draw Blood Culture - Preliminary No growth in 48 hours. 02/07/23 17:00 Sputum, Induced/Lukens Gram Stain - Final 02/07/23 17:00 Sputum, Induced/Lukens Respiratory Culture - Final Staphylococcus aureus 02/07/23 21:45 Urine Catheter - Uribe Legionella Antigen - Final 02/07/23 21:45 Urine Catheter - Uribe Streptococcus pneumoniae Antigen (M - Final Streptococcus pneumonia Ag 02/07/23 17:12 Mucosa - Nose Coronavirus COVID-19 PCR - Final 02/07/23 17:12 Mucosa - Nose Respiratory Panel (PCR) - Final Influenza A (Subtype H1) Radiography Diagnostic Testing: Radiology Impression Echocardiogram 02/10/23 13:12 Interpretation Summary Severe LV systolic dysfunction. Estimated ejection fraction 15%. Small to moderate-sized anterior pericardial effusion. Likely clot. No significant change change from previous echo. Ordering Physician: Jose Martin Witt Performed By: Tammy Villarreal ANDIE Physical Exam Narrative GENERAL: Patient on the vent HEENT: Atraumatic; normocephalic EYES; Anicteric, Normal Conjunctiva NECK; supple, normal thyroid, RESPIRATORY: Diminished to auscultation CARDIOVASCULAR: Regular S1 S2, GI: soft, normoactive bowel sounds, : No Renal angle tenderness; EXTREMITIES: No edema, no clubbing, MUSCULOSKELETAL: no muscle wasting NEURO: Awake on the vent SKIN: No Rash PSYCH; Flat affect Assessment & Plan Assessment/Plan (1) COPD exacerbation: (2) Acute hypoxemic respiratory failure: PLAN: Plan Patient is a 62-year-old gentleman who was transferred from an outside hospital in respiratory failure. Manage initially with noninvasive ventilation patient later went into cardiac arrest and was successfully resuscitated with ROSC S. Was found to have elevated troponin underwent left heart catheterization which revealed multivessel coronary artery disease. Patient remains on the vent 1. Acute on chronic hypoxic respiratory failure ? Patient failed initial treatment with noninvasive ventilation went into cardiac arrest successfully intubated. Patient has since been managed by pulmonary medicine ? 02/12/2023; patient remains on the vent. Did fail her weaning trial this a.m. 2. Cardiac arrest ? Patient rhythm was 1 of V-fib successfully resuscitated using ACLS with ROSC. 3. Acute non-STEMI complicated by cardiac arrest ? Patient underwent successful left heart catheterization which demonstrated multivessel disease. Cardiology recommended evaluation by cardiothoracic surgery. Decision for patient to undergo the evaluation by cardiothoracic surgery deferred to cardiology -2D echo obtained demonstrated EF of 15 to 20% with moderate anterior pericardial effusion 4. Septic shock ? Secondary to influenza 80 and pneumococcal pneumonia. Present on admission. Patient has since been managed with broad-spectrum antibiotic therapy in addition to Tamiflu as well as mechanical ventilation -02/12/2023; patient grew MSSA in the sputum and streptococcal pneumonia antigen in the urine came back positive ? 02/12/2023; Continues to spike fever. Case discussed with watch case polisher plan is for patient to be pancultured and antibiotic therapy broadened to include vancomycin to cover for possible MRSA and MDR 5. Tobacco dependence ? Plan is to behavioral health counselor patient on cessation following extubation from the vent 6. Essential hypertension ? Per history patient antihypertensives on hold 7. DVT prophylaxis ? SC Lovenox Time spent in the patient's overall evaluation,decision-making process, review of diagnostic data, adjustment of management, discussion with other providers, nursing nursing and ancillary staff involved in patient's care documentation, 50 Minutes Charges/Coding Visit Charges Inpatient E&M: 07327 [facility] L3
[2023-02-12] MEDS: Insulin Glargine-YFGN 100 UNIT/ML Pen SC (08:13)
[2023-02-12] MEDS: Pantoprazole Sodium 40 MG in 0.9% Normal Saline (100mL MB+) 100 ML 330 MG IV (08:13)
[2023-02-12] MEDS: Aspirin 81 MG TAB.CHEW GT (08:20)
[2023-02-12] MEDS: Clopidogrel Bisulfate 75 MG Tablet GT (08:20)
[2023-02-12] MEDS: Chlorhexidine 15 ML PO ×2 (08:20→20:39)
[2023-02-12] MEDS: Oseltamivir Phosphate 30 MG Capsule GT ×2 (08:20→20:39)
--- NOTE | 2023-02-12 08:42 | VDLE_ITS ---
Reason For Study: Bilateral leg swelling RIGHT LEFT GSV is normal. GSV is normal. CFV is compressible, spontaneous, phasic, CFV is compressible, spontaneous, phasic, competent and demonstrates normal competent, and demonstrates normal augmentation. augmentation. FV is compressible, spontaneous, phasic, FV is compressible, spontaneous, phasic, competent and demonstrates normal competent and demonstrates normal augmentation. augmentation. POP V is compressible, spontaneous, phasic, POP V is compressible, spontaneous, phasic, competent and demonstrates normal competent and demonstrates normal augmentation. augmentation. T/P Trunk is compressible. T/P Trunk is compressible. PTV is compressible. PTV is compressible. RT PerV is compressible. LT PerV is compressible. Procedure This is a venous duplex using B-mode, color flow and spectral Doppler. Exam performed portable in ICU/CCU. A preliminary report was called and/or faxed to Dr. Cole and ICU Team. VL/Venous Duplex US - Ayaan Extrem Interpretation Summary No evidence for acute deep venous thrombosis bilateral lower extremities with p atent and compressible bilateral great saphenous veins. Ordering Physician: Jim Cole Referring Physician: Cee Smith Performed By: Donna White RVT
[2023-02-12] MEDS: Insulin Glargine-YFGN 100 UNIT/ML Pen 8 UNIT SC (09:42)
[2023-02-12] MEDS: Na Biphos/Potassium Phosphate PACKET 1 PACKET PO ×2 (09:43→20:39)
[2023-02-12] MEDS: Enoxaparin 40 MG/0.4 ML Syringe SC (09:44)
[2023-02-12] MEDS: Midazolam 2 MG/2 ML Syringe IV ×2 (10:25→12:25)
[2023-02-12] MEDS: Cefepime HCl 1 GM in 0.9% Normal Saline (50mL MB+) 50 ML IV ×2 (10:36→20:36)
[2023-02-12] MEDS: Vancomycin IV 1,000 MG/200 ML BAG 200 MG IV (10:36)
--- NOTE | 2023-02-12 10:37 | NURSING ---
Dr. Cole at bedside with ultrasound to start IV. Patient heart rate up to 170s, anxious, tremors, order for versed 2 mg IV x1 now. #18 gauge IV started by Dr. Cole via ultrasound in Right forearm. 1025 versed 2 mg IV given by this RN, verified with Kiki Berry RN Order to D/C central line at this time. Ok for antibiotics once blood cultures are drawn.
[2023-02-12 10:47] LABS: Pathologist Review Reviewed
--- NOTE | 2023-02-12 10:52 | PCM.RX.CS ---
Consult Antibiotic Management Pharmacy has been consulted to manage selected antibiotic: Vancomycin Type of Intervention Type of Consult: New start Suspected Infection Suspected Infection: Other Labs Labs: Sodium 138 mmol/L (136-145) 02/12/23 03:35 Potassium 4.5 mmol/L (3.5-5.1) 02/12/23 03:35 Chloride 105 mmol/L (98-107) 02/12/23 03:35 Carbon Dioxide 29.0 mmol/L (21.0-32.0) 02/12/23 03:35 Anion Gap 4 (5-15) L 02/12/23 03:35 BUN 23 mg/dL (7-18) H 02/12/23 03:35 Creatinine 0.75 mg/dL (0.55-1.02) 02/12/23 03:35 Est GFR (MDRD) Af Amer 100 mL/min (>60) 02/12/23 03:35 Est GFR (MDRD) Non-Af 83 mL/min (>60) 02/12/23 03:35 BUN/Creatinine Ratio 30.5 RATIO (10-20) H 02/12/23 03:35 Glucose 255 mg/dL (74-106) H 02/12/23 03:35 Microbiology Microbiology: Microbiology 02/08/23 18:15 Blood Culture (Wb) - Right Hand Blood Culture - Preliminary No growth in 48 hours. 02/08/23 18:05 Blood Culture (Wb) - Line Draw Blood Culture - Preliminary No growth in 48 hours. 02/07/23 17:00 Sputum, Induced/Lukens Gram Stain - Final 02/07/23 17:00 Sputum, Induced/Lukens Respiratory Culture - Final Staphylococcus aureus 02/07/23 21:45 Urine Catheter - Uribe Legionella Antigen - Final 02/07/23 21:45 Urine Catheter - Uribe Streptococcus pneumoniae Antigen (M - Final Streptococcus pneumonia Ag 02/07/23 17:12 Mucosa - Nose Coronavirus COVID-19 PCR - Final 02/07/23 17:12 Mucosa - Nose Respiratory Panel (PCR) - Final Influenza A (Subtype H1) Pharmacy Plan for Drug Dosing Pharmacy Plan for Drug Dosing: NEW START IV VANCOMYCIN Consulting Physician: KADEN Indication: PNEUMONIA/FEVERS Goal Trough: 15-20 MG/DL (MODERATE GOAL ORDERED, TORB TO CHANGE TO HIGH) SrCr: 0.75 MG/DL CrCl: 65.7 ML/MIN (USING ADJ BW) Comments: INITIAL STANDARD DOSE OF 1000MG GIVEN 02/12 @ 1036. ALSO HAD ER LOADING DOSE 02/08 @ 1821 (FYI, SHOULD BE CLEARED AT THIS POINT) Vancomycin Dose: WILL START 750MG Q12 TONIGHT @ 2230 AND GET A LEVEL PRIOR TO THE 4TH TOTAL DOSE PER POLICY. Pending Level: 02/13/23 @ 2200 Pharmacy Service will continue to monitor and adjust dosing as required.
--- NOTE | 2023-02-12 10:58 | PN.CARD_ITS ---
Subjective Subjective Continues to be febrile. Short run of atrial fibrillation with rapid ventricular response this morning. Presently sinus rhythm. Objective Data Vital Signs: Vital Signs Temp Pulse Resp BP Pulse Ox O2 Del Method O2 Flow Rate 101.6 F H 155 H 20 H 132/98 H 100 Mechanical Ventilator 30 02/12/23 10:00 02/12/23 10:16 02/12/23 10:16 02/12/23 10:00 02/12/23 10:16 02/12/23 10:00 02/09/23 08:31 FiO2 30 02/12/23 10:16 Oxygen Flow Rate (L/min) 30 Oxygen Delivery Method Mechanical Ventilator Weight: 140 lb 6.951 oz Body Mass Index (BMI) 27.6 Intake & Output: Intake and Output for Last 24 Hours 02/10/23 02/11/23 02/12/23 23:59 23:59 23:59 Intake Total 1901.63 / 1922.63 1997.78 / 2099.18 1380.81 / 1380.81 Output Total 700 / 700 525 / 525 850 / 850 Balance 1201.63 / 1222.63 1472.78 / 1574.18 530.81 / 530.81 Lab / Micro Data 02/12/23 03:35 02/12/23 03:35 Labs: Laboratory Results - last 24 hr 02/11/23 03:00: Diff Path Review Reviewed 02/11/23 12:30: POC Glucose 247 H 02/11/23 17:29: POC Glucose 247 H 02/11/23 23:04: POC Glucose 202 H 02/12/23 03:35: WBC 26.5 H, RBC 4.07 L, Hgb 11.7 L, Hct 38.0, MCV 93.4, MCH 28.7, MCHC 30.8 L, RDW Std Deviation 47.0 H, RDW Coeff of Angie 13.8, Plt Count 421, MPV 11.3, Immature Gran % (Auto) 4.400 H, Neut % (Auto) 88.5 H, Lymph % (Auto) 2.0 L, Stephens % (Auto) 4.8, Eos % (Auto) 0.0, Baso % (Auto) 0.3, Absolute Neuts (auto) 23.4 H, Absolute Lymphs (auto) 0.53 L, Nucleated RBC % 0.2, Differential Comment SCANNED, Sodium 138, Potassium 4.5, Chloride 105, Carbon Dioxide 29.0, Anion Gap 4 L, BUN 23 H, Creatinine 0.75, Estim Creat Clear Calc 56.58, Est GFR (MDRD) Af Amer 100, Est GFR (MDRD) Non-Af 83, BUN/Creatinine Ratio 30.5 H, Glucose 255 H, Calcium 7.1 L, Phosphorus 1.3 L, Magnesium 2.2, Total Bilirubin 0.30, Direct Bilirubin 0.12, AST 27, ALT 47, Alkaline Phosp hatase 52, Total Protein 5.2 L, Albumin 2.0 L, Globulin 3.2 02/12/23 05:06: POC Glucose 211 H Micro: Microbiology 02/08/23 18:15 Blood Culture (Wb) - Right Hand Blood Culture - Preliminary No growth in 48 hours. 02/08/23 18:05 Blood Culture (Wb) - Line Draw Blood Culture - Preliminary No growth in 48 hours. Cardiology Labs/Tests 02/12/23 03:35: WBC 26.5 H, RBC 4.07 L, Hgb 11.7 L, Hct 38.0, MCV 93.4, MCH 28.7, MCHC 30.8 L, Plt Count 421, MPV 11.3, Immature Gran % (Auto) 4.400 H, Neut % (Auto) 88.5 H, Lymph % (Auto) 2.0 L, Stephens % (Auto) 4.8, Eos % (Auto) 0.0, Baso % (Auto) 0.3, Absolute Neuts (auto) 23.4 H, Nucleated RBC % 0.2, Sodium 138, Potassium 4.5, Chloride 105, Carbon Dioxide 29.0, Anion Gap 4 L, BUN 23 H, Creatinine 0.75, Est GFR (MDRD) Af Amer 100, Est GFR (MDRD) Non-Af 83, BUN/Creatinine Ratio 30.5 H, Glucose 255 H, Calcium 7.1 L, Phosphorus 1.3 L, Magnesium 2.2, Total Bilirubin 0.30, Direct Bilirubin 0.12 Rhythm: EKG: ECHO: Stress Test: Cardiac Cath: PCI: CT Surgery: Holter monitor: EPS: PPM: CXR: Chest CT Scan: Physical Exam Narrative Mechanically ventilated. Assessment & Plan Assessment/Plan (1) Cardiac arrest: PLAN: In the setting of acute hypoxemic respiratory failure. Coronary angiography revealed severe triple-vessel coronary artery disease however with DIEGO III flow in both left anterior descending artery and left circumflex coronary artery. Chronic total occlusion of the right coronary artery with excellent panr-es-ndjte collaterals. Continue to monitor. (2) Acute hypoxemic respiratory failure: PLAN: Mechanically ventilated. Follow as per critical care. (3) NSTEMI (non-ST elevated myocardial infarction): PLAN: See #1 above. Continue medical management. Will need a heart team approach towards revascularization when she recovers from her respiratory issues. (4) Transient atrial fibrillation: PLAN: In the setting of sepsis, acute febrile illness. Monitor. Start on low- dose beta-blockers. (5) Coronary artery disease: PLAN: See #1 and 3 above. (6) COPD exacerbation: PLAN: As per pulmonology/critical care. (7) Left ventricular systolic dysfunction (LVSD): PLAN: Beta-blockers and SHANNON inhibitors when hemodynamically stable. (8) Septic shock: PLAN: Resolved.
--- NOTE | 2023-02-12 11:02 | CASEMGMT ---
Social Work Pt does not have LW/POA on file. Though pt does live with significant other Dejuan Howell, pt's next of kin is her children: Louann Arshad([phone]), Anson Dougherty([phone]), and Marlen Anton([phone]). KIANNA Quiñones
[2023-02-12] MEDS: cloNIDine HCl 0.1 MG Tablet 0.100000000000000006 MG PO ×3 (11:45→20:38)
[2023-02-12] MEDS: 0.9% Saline Lock 10 ML Syringe IV (11:45)
[2023-02-12] MEDS: Metoprolol Tartrate 25 MG Tablet 12.5 MG PO ×2 (11:45→20:38)
--- NOTE | 2023-02-12 11:56 | CT_ITS ---
STUDY: CT BRAIN WITHOUT CONTRAST REASON FOR EXAM: Female, 62 years old. Severe headache RADIATION DOSAGE (If Supplied By Facility): CTDIvol = ( 44.99 ) mGy, DLP = ( 796.11 ) mGycm TECHNIQUE: Transaxial CT imaging of the brain was performed without administration of intravenous contrast material. Individualized dose optimization techniques were used for this CT. COMPARISON: No relevant priors. FINDINGS: Normal soft tissue structures. Normal calvarium. Normal size ventricles and extra-axial spaces for the patient''s age. Normal white matter tracts of the cerebral hemispheres. Normal basal ganglia and thalami. Normal brainstem. Normal cerebellum. There is no intracranial hemorrhage. There are no findings of an acute ischemic infarction. Normal visualized paranasal sinuses. CT/Brain/Head without Contrast IMPRESSION: Age consistent changes, no acute findings. Electronically Signed: Indra aWtkins MD at 12:50 EST ,
[2023-02-12] MEDS: Vital AF 1.2 Cal Liquid 1,000 ML 45 ML GT (11:57)
[2023-02-12 11:59] LABS: Bedside Glucose 224 mg/dL (74-106)
[2023-02-12] MEDS: Propofol 10MG/Ml 1,000 MG/100 ML Bottle 3.79999999999999982 MG CONT INF (14:58)
--- NOTE | 2023-02-12 15:44 | PN.CC_ITS ---
Assessment & Plan Assessment/Plan (1) COPD exacerbation: (2) NSTEMI (non-ST elevated myocardial infarction): (3) Acute hypoxemic respiratory failure: (4) Cardiac arrest: PLAN: Plan RECOMMENDATIONS: * Continues to fail SBT with tachycardia and tachypnea. * She has also been febrile concern for new source of sepsis. antibiotics switched to Vanco and cefepime. Blood cultures obtained. CVC removed. Repeat sputum culture. Bilateral lower extremity DVT scan negative * discontinue central line. Patient has had loose stools although she is on a bowel regimen. If diarrhea persists will send for C. difficile. No elevated LFTs that would suggest acalculous cholecystitis as a source of fever * DC Precedex as it may be contributing for fever and will be switched to propofol * Solu-Medrol to 40 twice daily continue breathing treatments * She will complete Tamiflu today * Prognosis is poor given patient's multi organ failure and need for CABG. IMPRESSIONS: 1. Acute on chronic hypoxemic respiratory failure The patient has a baseline of reported COPD of unknown severity along with chronic hypoxemic respiratory failure with a baseline requirement of 2 L/min. She presented with worsening shortness of breath in the setting of influenza A and pneumococcal pneumonia. The patient was ultimately intubated. Plan to continue assist-control mode of mechanical ventilation and wean FiO2 and PEEP to maintain saturations at or above 90%. The patient will be continued on scheduled bronchodilators, steroids, antibiotics and Tamiflu. Will keep steroids at current dosing until able to be extubated. Spontaneous breathing an d awakening trials per protocol. 2. Septic shock Off Levophed. The patient presented to the hospital with sepsis due to influenza A, pneumococcal and MSSA pneumonia with acute sepsis related organ dysfunction as evidenced by lactic acidemia and respiratory failure requiring invasive mechanical ventilatory support. Patient does appear to have MSSA growing from multiple cultures also. Continue supportive care along with antimicrobials. Patient is no longer requiring pressors or having fevers 3. NSTEMI/cardiac arrest The patient's hospital course has been complicated by a V-fib cardiac arrest with successful ROSC. The patient underwent cardiac catheterization which revealed multivessel coronary disease, for which evaluation by CT surgery was recommended. Will defer the urgency with regard to her revascularization to cardiology, who is following to assist with medical management. Patient has the potential of a clot in the pericardium, so no heparin is recommended 4. History of tobacco dependency/hypertension/history of TIA Complicates care, management, recovery and prognosis. Continue to hold baseline antihypertensives. 5. Prolonged QTc Cardiology following. May need to discontinue amiodarone. Defer to cardiology. Will discontinue Zithromax, but other antibiotics are necessary TIME: 37 minutes of critical care time, independent of procedures, was spent addressing the patient's acute on chronic hypoxemic respiratory failure, septic shock, NSTEMI/cardiac arrest, review of all data and collaboration with the care team. Subjective Subjective She has been febrile since she failed SBT with tachypnea and tachycardia Objective Data Objective Data Vital Signs: Vital Signs Temp Pulse Resp BP Pulse Ox O2 Del Method O2 Flow Rate 38.3 C H 75 14 76/53 L 94 Mechanical Ventilator 30 02/12/23 15:00 02/12/23 15:12 02/12/23 15:12 02/12/23 15:00 02/12/23 15:12 02/12/23 15:00 02/09/23 08:31 FiO2 35 02/12/23 15:00 Oxygen Flow Rate (L/min) 30 Oxygen Delivery Method Mechanical Ventilator Weight: 63.7 kg Body Mass Index (BMI) 27.6 Intake & Output: Intake and Output for Last 24 Hours 02/10/23 02/11/23 02/12/23 23:59 23:59 23:59 Intake Total 1901.63 / 1922.63 1997.78 / 2099.18 2088.64 / 2088.64 Output Total 700 / 700 525 / 525 1100 / 1100 Balance 1201.63 / 1222.63 1472.78 / 1574.18 988.64 / 988.64 Lab / Micro Data 02/12/23 03:35 02/12/23 03:35 Labs: Laboratory Results - last 24 hr 02/11/23 03:00: Diff Path Review Reviewed 02/11/23 17:29: POC Glucose 247 H 02/11/23 23:04: POC Glucose 202 H 02/12/23 03:35: WBC 26.5 H, RBC 4.07 L, Hgb 11.7 L, Hct 38.0, MCV 93.4, MCH 28.7, MCHC 30.8 L, RDW Std Deviation 47.0 H, RDW Coeff of Angie 13.8, Plt Count 421, MPV 11.3, Immature Gran % (Auto) 4.400 H, Neut % (Auto) 88.5 H, Lymph % (Auto) 2.0 L, Kend[place] % (Auto) 4.8, Eos % (Auto) 0.0, Baso % (Auto) 0.3, Absolute Neuts (auto) 23.4 H, Absolute Lymphs (auto) 0.53 L, Nucleated RBC % 0.2, Differential Comment SCANNED, Sodium 138, Potassium 4.5, Chloride 105, Carbon Dioxide 29.0, Anion Gap 4 L, BUN 23 H, Creatinine 0.75, Estim Creat Clear Calc 56.58, Est GFR (MDRD) Af Amer 100, Est GFR (MDRD) Non-Af 83, BUN/Creatinine Rati o 30.5 H, Glucose 255 H, Calcium 7.1 L, Phosphorus 1.3 L, Magnesium 2.2, Total Bilirubin 0.30, Direct Bilirubin 0.12, AST 27, ALT 47, Alkaline Phosphatase 52, Total Protein 5.2 L, Albumin 2.0 L, Globulin 3.2 02/12/23 05:06: POC Glucose 211 H 02/12/23 11:39: POC Glucose 224 H Micro: Microbiology 02/12/23 10:20 Sputum, Induced/Lukens Gram Stain - Final 02/08/23 18:15 Blood Culture (Wb) - Right Hand Blood Culture - Preliminary No growth in 48 hours. 02/08/23 18:05 Blood Culture (Wb) - Line Draw Blood Culture - Preliminary No growth in 48 hours. 02/07/23 17:00 Sputum, Induced/Lukens Gram Stain - Final 02/07/23 17:00 Sputum, Induced/Lukens Respiratory Culture - Final Staphylococcus aureus 02/07/23 21:45 Urine Catheter - Uribe Legionella Antigen - Final 02/07/23 21:45 Urine Catheter - Uribe Streptococcus pneumoniae Antigen (M - Final Streptococcus pneumonia Ag 02/07/23 17:12 Mucosa - Nose Coronavirus COVID-19 PCR - Final 02/07/23 17:12 Mucosa - Nose Respiratory Panel (PCR) - Final Influenza A (Subtype H1) Radiography Diagnostic Testing: Radiology Impression Venous Doppler Study 02/12/23 08:42 Interpretation Summary No evidence for acute deep venous thrombosis bilateral lower extremities with patent and compressible bilateral great saphenous veins. Ordering Physician: Jim Cole Referring Physician: Cee Smith Performed By: Donna White RVT Brain CT 02/12/23 11:56 IMPRESSION: Age consistent changes, no acute findings. Electronically Signed: Indra Watkins MD at 12:50 EST , Physical Exam Const Constitutional Narrative: Intubated, sedated and mechanically ventilated. No ventilator dyssynchrony. HEENT normocephalic and head/scalp atraumatic Eyes PERRL and EOMs intact bilaterally Neck supple General: trachea midline and CVC in place Resp Auscultation: wheezes expiratory wheezes (End) and diminished lung sounds Cardio S1 normal heart sound, S2 normal heart sound and no murmurs GI normal to inspection, nondistended, normoactive bowel sounds Extremity no clubbing, cyanosis or edema Skin no rashes or lesions noted Neuro Sensorium / Orientation: sedated on vent Charges/Coding Procedures Hospitalists Procedures: [id number] Critical Care 1st Hr
[2023-02-12] MEDS: fentaNYL drip 100 ML 12.5 MCG CONT INF (17:14)
[2023-02-12 17:29] LABS: Bedside Glucose 197 mg/dL (74-106)
--- NOTE | 2023-02-12 20:32 | EKG12_ITS ---
Test Reason : PROL QT Blood Pressure : / mmHG Vent. Rate : 123 BPM Atrial Rate : 123 BPM P-R Int : 128 ms QRS Dur : 070 ms QT Int : 382 ms P-R-T Axes : 000 070 135 degrees QTc Int : 546 ms Sinus tachycardia Septal infarct , age undetermined ST & T wave abnormality, consider anterolateral ischemia Abnormal ECG No previous ECGs available Confirmed by ELIEZER HERNANDEZ, ELIU ([id number]), film and video editor SHEA BRUCE ([id number]) on 02/16/2023 10:26:59 AM Referred By: CANDIDO Confirmed By:ELIU MARTINS MD
[2023-02-12] MEDS: Atorvastatin Calcium 80 MG Tablet GT (20:37)
[2023-02-12] MEDS: Vancomycin HCl 750 MG in 0.9% Normal Saline (250mL Bag) 250 ML 250 MG IV (23:05)
[2023-02-12 23:37] LABS: Bedside Glucose 152 mg/dL (74-106)
[2023-02-12] MEDS: Propofol 10MG/Ml 1,000 MG/100 ML Bottle 7.59999999999999964 MG CONT INF (23:53)
[2023-02-13] VITALS (38 sets, daily range): BP systolic 62–168; BP diastolic 44–112; PULSE 62–158; RESP 14–62; TEMP 37.3–38.5; O2SAT 92–99; BMI 28.3
[2023-02-13] MEDS: fentaNYL drip 100 ML 12.5 MCG CONT INF (01:15)
[2023-02-13] MEDS: Miconazole Nitrate 43 GM Bottle 1 APPLIC TOPICAL ×3 (05:48→21:11)
[2023-02-13] MEDS: Insulin Lispro 100 UNIT/ML INSULN.PEN SC ×4 (05:49→23:30)
[2023-02-13] MEDS: cloNIDine HCl 0.1 MG Tablet 0.100000000000000006 MG PO ×2 (05:50→16:28)
[2023-02-13 05:54] LABS: Absolute Lymphocyte Count 0.56 X10^3/uL (0.83-4.51); Absolute Neutrophil Count 19.6 X10^3/uL (2.0-7.7); Basophil# 0.05 X10^3/uL; Basophil% 0.2 % (0-1); Hematocrit 34.6 % (37-47); Hemoglobin 10.9 g/dL (12.0-15.0); Lymphocyte # 0.56 X10^3/ul (0.83-4.51); Lymphocyte % 2.6 % (19-41); Mean Corp Hgb Conc 31.5 g/dL (32-36); Mean Corpuscular Hgb 29.1 pg (27.0-32.0); Mean Corpuscular Volume 92.5 fL (81-99); Mean Platelet Vol. 11.5 fl (6.2-12.0); Monocyte# 0.97 X10^3/uL; Monocyte% 4.5 % (0-10); NRBC Flagged by Analyzer 0.1 % (0-5); Neutrophil # 19.55 X10^3/uL (2.7-7.7); Neutrophil % 90.4 % (47-70); POSITIVE DIFFERENTIAL YES; Platelet Count 350 K/mm3 (150-450); RBC Distribution Width CV 14.1 % (11.6-14.6); RBC Distribution Width SD 47.1 fl (35.1-43.9); Red Blood Count 3.74 M/mm3 (4.2-5.4); White Blood Count 21.6 K/mm3 (4.4-11.0)
[2023-02-13 06:06] LABS: Anion Gap 3 (5-15); BUN 24 mg/dL (7-18); BUN/Creat Ratio 34.2 RATIO (10-20); Calcium,Total 6.7 mg/dL (8.5-10.1); Chloride 106 mmol/L (98-107); EST Glomerular Filtration Rate 90 mL/min (>60); Est Glom Filt Rate - Afr Amer 109 mL/min (>60); Estimated Creatinine Clearance 60.62 ml/min; Glucose 224 mg/dL (74-106); Potassium 4.3 mmol/L (3.5-5.1); Sodium Level 138 mmol/L (136-145)
[2023-02-13 06:09] LABS: Differential Indicated SCAN CRITERIA MET
[2023-02-13 06:12] LABS: Bedside Glucose 205 mg/dL (74-106)
[2023-02-13 06:18] LABS: Phosphorus 1.8 mg/dL (2.5-4.9)
[2023-02-13 06:32] LABS: Differential Comment SCANNED
[2023-02-13 06:45] LABS: Ionized Calcium 4.36 mg/dL (4.36-5.20)
[2023-02-13] MEDS: Ipratropium/Albuterol Sulfate 3 ML AMPUL.NEB INHALATION ×3 (06:52→19:05)
[2023-02-13] MEDS: Metoprolol Tartrate 25 MG Tablet 12.5 MG PO ×2 (07:26→21:12)
--- NOTE | 2023-02-13 07:28 | PN.HOSP_ITS ---
Reason for Visit Reason for Visit: Diagnoses Sepsis, unspecified organism (02/07/23) Non-ST elevation (NSTEMI) myocardial infarction (02/07/23) Atherosclerotic heart disease of [place] coronary artery without angina pectoris (02/07/23) Cardiac arrest, cause unspecified (02/07/23) Unspecified atrial fibrillation (02/07/23) Heart disease, unspecified (02/07/23) Chronic obstructive pulmonary disease with (acute) exacerbation (02/07/23) Acute respiratory failure with hypoxia (02/07/23) Severe sepsis with septic shock (02/07/23) Subjective Subjective Patient seen remains on the vent. Continues to spike fever with Tmax of 102. Patient did fail weaning trial Objective Data Objective Data Vital Signs: Vital Signs Temp Pulse Resp BP Pulse Ox O2 Del Method O2 Flow Rate 99.3 F H 158 H 16 136/81 H 99 Mechanical Ventilator 30 02/13/23 07:00 02/13/23 07:26 02/13/23 07:00 02/13/23 07:26 02/13/23 07:00 02/13/23 07:00 02/09/23 08:31 FiO2 35 02/13/23 07:00 Oxygen Flow Rate (L/min) 30 Oxygen Delivery Method Mechanical Ventilator Weight: 65.9 kg Body Mass Index (BMI) 28.3 Intake & Output: Intake and Output for Last 24 Hours 02/11/23 02/12/23 02/13/23 23:59 23:59 23:59 Intake Total 1996.78 / 9.18 2521.73 / 2605.12 648.40 / 648.40 Output Total 525 / 525 1210 / 1460 500 / 500 Balance 1472.78 / 1574.18 1311.73 / 1145.12 148.40 / 148.40 Lab / Micro Data 02/13/23 05:46 02/13/23 05:46 Labs: Laboratory Results - last 24 hr 02/11/23 03:00: Diff Path Review Reviewed 02/12/23 11:39: POC Glucose 224 H 02/12/23 17:01: POC Glucose 197 H 02/12/23 23:06: POC Glucose 152 H 02/13/23 05:46: WBC 21.6 H, RBC 3.74 L, Hgb 10.9 L, Hct 34.6 L, MCV 92.5, MCH 29.1, MCHC 31.5 L, RDW Std Deviation 47.1 H, RDW Coeff of Angie 14.1, Plt Count 350, MPV 11.5, Immature Gran % (Auto) 2.300 H, Neut % (Auto) 90.4 H, Lymph % (Auto) 2.6 L, [place] % (Auto) 4.5, Eos % (Auto) 0.0, Baso % (Auto) 0.2, Absolute Neuts (auto) 19.6 H, Absolute Lymphs (auto) 0.56 L, Nucleated RBC % 0.1, Differential Comment SCANNED, Sodium 138, Potassium 4.3, Chloride 106, Carbon Dioxide 29.0, Anion Gap 3 L, BUN 24 H, Creatinine 0.70, Estim Creat Clear Calc 60.62, Est GFR (MDRD) Af Amer 109, Est GFR (MDRD) Non-Af 90, BUN/Creatinine Ratio 34.2 H, Glucose 224 H, Calcium 6.7 L, Phosphorus 1.8 L, Magnesium 2.0, POC Glucose 205 H 02/13/23 06:40: Ionized Calcium 4.36 Micro: Microbiology 02/12/23 10:30 Blood Culture (Wb) - Right Forearm Blood Culture - Preliminary 02/12/23 10:20 Sputum, Induced/Lukens Gram Stain - Final 02/08/23 18:15 Blood Culture (Wb) - Right Hand Blood Culture - Preliminary No growth in 48 hours. 02/08/23 18:05 Blood Culture (Wb) - Line Draw Blood Culture - Preliminary No growth in 48 hours. 02/07/23 17:00 Sputum, Induced/Lukens Gram Stain - Final 02/07/23 17:00 Sputum, Induced/Lukens Respiratory Culture - Final Staphylococcus aureus 02/07/23 21:45 Urine Catheter - Uribe Legionella Antigen - Final 02/07/23 21:45 Urine Catheter - Uribe Streptococcus pneumoniae Antigen (M - Final Streptococcus pneumonia Ag 02/07/23 17:12 Mucosa - Nose Coronavirus COVID-19 PCR - Final 02/07/23 17:12 Mucosa - Nose Respiratory Panel (PCR) - Final Influenza A (Subtype H1) Radiography Diagnostic Testing: Radiology Impression Venous Doppler Study 02/12/23 08:42 Interpretation Summary No evidence for acute deep venous thrombosis bilateral lower extremities with patent and compressible bilateral great saphenous veins. Ordering Physician: Jim Cole Referring Physician: Cee Smith Performed By: Donna White, MARIMART Brain CT 02/12/23 11:56 IMPRESSION: Age consistent changes, no acute findings. Electronically Signed: Indra Watkins MD at 12:50 EST , Physical Exam Narrative GENERAL: Patient on the vent HEENT: Atraumatic; normocephalic EYES; Anicteric, Normal Conjunctiva NECK; supple, normal thyroid, RESPIRATORY: Diminished to auscultation CARDIOVASCULAR: Regular S1 S2, GI: soft, normoactive bowel sounds, : No Renal angle tenderness; EXTREMITIES: No edema, no clubbing, MUSCULOSKELETAL: no muscle wasting NEURO: Awake on the vent SKIN: No Rash PSYCH; Flat affect Assessment & Plan Assessment/Plan (1) COPD exacerbation: (2) Acute hypoxemic respiratory failure: PLAN: Plan Patient is a 62-year-old gentleman who was transferred from an outside hospital in respiratory failure. Manage initially with noninvasive ventilation patient later went into cardiac arrest and was successfully resuscitated with ROSC S. Was found to have elevated troponin underwent left heart catheterization which revealed multivessel coronary artery disease. Patient remains on the vent 1. Acute on chronic hypoxic respiratory failure ? Patient failed initial treatment with noninvasive ventilation went into cardiac arrest successfully intubated. Patient has since been managed by pulmonary medicine ? 02/12/2023; patient remains on the vent. Did fail her weaning trial this a.m. ? 02/13/2023; remains on the vent 2. Cardiac arrest ? Patient rhythm was 1 of V-fib successfully resuscitated using ACLS with ROSC. 3. Acute non-STEMI complicated by cardiac arrest ? Patient underwent successful left heart catheterization which demonstrated multivessel disease. Cardiology recommended evaluation by cardiothoracic surgery. Decision for patient to undergo the evaluation by cardiothoracic surgery deferred to cardiology -2D echo obtained demonstrated EF of 15 to 20% with moderate anterior pericardial effusion 4. Septic shock ? Secondary to influenza 80 and pneumococcal pneumonia. Present on admission. Patient has since been managed with broad-spectrum antibiotic therapy in addition to Tamiflu as well as mechanical ventilation -02/12/2023; patient grew MSSA in the sputum and streptococcal pneumonia antigen in the urine came back positive ? 02/12/2023; Continues to spike fever. Case discussed with thermoplastic technician plan is for patient to be pancultured and antibiotic therapy broadened to include vancomycin to cover for possible MRSA and MDR ? 02/13/2023; patient continues to spike fever. She was pancultured the day prior, results pending 5. Tobacco dependence ? Plan is to general counsel patient on cessation following extubation from the vent 6. Essential hypertension ? Per history patient antihypertensives on hold 7. DVT prophylaxis ? NE Lovenox Time spent in the patient's overall evaluation,decision-making process, review of diagnostic data, adjustment of management, discussion with other providers, nursing nursing and ancillary staff involved in patient's care documentation, 50 Minutes Charges/Coding Visit Charges Inpatient E&M: 19072 Subs Hosp L3
[2023-02-13] MEDS: Propofol 10MG/Ml 1,000 MG/100 ML Bottle 7.59999999999999964 MG CONT INF (07:50)
[2023-02-13 08:22] LABS: CPK Total, Creatine Kinase 135 U/L (26-192); Triglycerides 607 mg/dL
[2023-02-13] MEDS: fentaNYL drip 100 ML 10 MCG CONT INF ×2 (11:17→23:00)
[2023-02-13 11:33] LABS: Bedside Glucose 194 mg/dL (74-106)
[2023-02-13] MEDS: Cefepime HCl 1 GM in 0.9% Normal Saline (50mL MB+) 50 ML IV ×2 (11:38→21:11)
[2023-02-13] MEDS: Vancomycin HCl 750 MG in 0.9% Normal Saline (250mL Bag) 250 ML 250 MG IV ×2 (11:41→23:28)
[2023-02-13] MEDS: Na Biphos/Potassium Phosphate PACKET 1 PACKET PO ×2 (11:45→21:12)
[2023-02-13] MEDS: Clopidogrel Bisulfate 75 MG Tablet GT (11:45)
[2023-02-13] MEDS: Aspirin 81 MG TAB.CHEW GT (11:46)
[2023-02-13] MEDS: Midazolam 2 MG/2 ML Syringe IV (11:46)
[2023-02-13] MEDS: Chlorhexidine 15 ML PO ×3 (11:46→21:22)
[2023-02-13] MEDS: Enoxaparin 40 MG/0.4 ML Syringe SC (11:46)
--- NOTE | 2023-02-13 11:47 | PN.CARD_ITS ---
Subjective Subjective Continues to have episodes of atrial fibrillation with rapid ventricular response. Still mechanically intubated but awake. Objective Data Vital Signs: Vital Signs Temp Pulse Resp BP Pulse Ox O2 Del Method O2 Flow Rate 99.3 F H 118 H 15 136/81 H 96 Mechanical Ventilator 30 02/13/23 07:00 02/13/23 11:05 02/13/23 11:05 02/13/23 07:26 02/13/23 11:05 02/13/23 08:00 02/09/23 08:31 FiO2 35 02/13/23 11:05 Oxygen Flow Rate (L/min) 30 Oxygen Delivery Method Mechanical Ventilator Weight: 145 lb 4.554 oz Body Mass Index (BMI) 28.3 Intake & Output: Intake and Output for Last 24 Hours 02/11/23 02/12/23 02/13/23 23:59 23:59 23:59 Intake Total 1997.78 / 2099.18 2521.73 / 2605.12 794.99 / 794.99 Output Total 525 / 525 1210 / 1460 500 / 500 Balance 1472.78 / 1574.18 1311.73 / 1145.12 294.99 / 294.99 Lab / Micro Data 02/13/23 05:46 02/13/23 05:46 Labs: Laboratory Results - last 24 hr 02/12/23 11:39: POC Glucose 224 H 02/12/23 17:01: POC Glucose 197 H 02/12/23 23:06: POC Glucose 152 H 02/13/23 05:46: WBC 21.6 H, RBC 3.74 L, Hgb 10.9 L, Hct 34.6 L, MCV 92.5, MCH 29.1, MCHC 31.5 L, RDW Std Deviation 47.1 H, RDW Coeff of Angie 14.1, Plt Count 350, MPV 11.5, Immature Gran % (Auto) 2.300 H, Neut % (Auto) 90.4 H, Lymph % (Auto) 2.6 L, [place] % (Auto) 4.5, Eos % (Auto) 0.0, Baso % (Auto) 0.2, Absolute Neuts (auto) 19.6 H, Absolute Lymphs (auto) 0.56 L, Nucleated RBC % 0.1, Differential Comment SCANNED, Sodium 138, Potassium 4.3, Chloride 106, Carbon Dioxide 29.0, Anion Gap 3 L, BUN 24 H, Creatinine 0.70, Estim Creat Clear Calc 60.62, Est GFR (MDRD) Af Amer 109, Est GFR (MDRD) Non-Af 90, BUN/Creatinine Ratio 34.2 H, Glucose 224 H, Calcium 6.7 L, Phosphorus 1.8 L, Magnesium 2.0, Total Creatine Kinase 135, Triglycerides 607 H, POC Glucose 205 H 02/13/23 06:40: Ionized Calcium 4.36 02/13/23 11:08: POC Glucose 194 H Micro: Microbiology 02/12/23 10:20 Sputum, Induced/Lukens Gram Stain - Final 02/12/23 10:20 Sputum, Induced/Lukens Respiratory Culture - Preliminary Appears to be normal respiratory sanju. Further studies to follow. 02/12/23 10:30 Blood Culture (Wb) - Right Forearm Bacteria Detection (PCR) - Final Coag Negative Staph 02/12/23 10:30 Blood Culture (Wb) - Right Forearm Blood Culture - Preliminary Cardiology Labs/Tests 02/13/23 05:46: WBC 21.6 H, RBC 3.74 L, Hgb 10.9 L, Hct 34.6 L, MCV 92.5, MCH 29.1, MCHC 31.5 L, Plt Count 350, MPV 11.5, Immature Gran % (Auto) 2.300 H, Neut % (Auto) 90.4 H, Lymph % (Auto) 2.6 L, [place] % (Auto) 4.5, Eos % (Auto) 0.0, Baso % (Auto) 0.2, Absolute Neuts (auto) 19.6 H, Nucleated RBC % 0.1, Sodium 138, Potassium 4.3, Chloride 106, Carbon Dioxide 29.0, Anion Gap 3 L, BUN 24 H, Creatinine 0.70, Est GFR (MDRD) Af Amer 109, Est GFR (MDRD) Non-Af 90, BUN/Creatinine Ratio 34.2 H, Glucose 224 H, Calcium 6.7 L, Phosphorus 1.8 L, Magnesium 2.0, Triglycerides 607 H 02/13/23 06:40: Ionized Calcium 4.36 Rhythm: EKG: ECHO: Stress Test: Cardiac Cath: PCI: CT Surgery: Holter monitor: EPS: PPM: CXR: Chest CT Scan: Radiography Diagnostic Testing: Radiology Impression Venous Doppler Study 02/12/23 08:42 Interpretation Summary No evidence for acute deep venous thrombosis bilateral lower extremities with patent and compressible bilateral great saphenous veins. Ordering Physician: Jim Cole Referring Physician: Cee Smith Performed By: Donna White RVT Brain CT 02/12/23 11:56 IMPRESSION: Age consistent changes, no acute findings. Electronically Signed: Indra Watkins MD at 12:50 EST , Physical Exam Narrative Intubated but awake. Comfortable. No apparent distress. Heart sounds 1 and 2. Diminished air entry bilaterally. Assessment & Plan Assessment/Plan (1) Paroxysmal atrial fibrillation: PLAN: Start on amiodarone to maintain sinus rhythm. Change to therapeutic dose Lovenox. Change to NOAC when extubated. (2) Cardiac arrest: PLAN: In the setting of acute hypoxemic respiratory failure. Coronary angiography revealed severe triple-vessel coronary artery disease however with DIEGO III flow in both left anterior descending artery and left circumflex coronary artery. Chronic total occlusion of the right coronary artery with excellent dxae-wy-wutsj collaterals. Continue to monitor. (3) NSTEMI (non-ST elevated myocardial infarction): PLAN: See #1 above. Continue medical management. Will need a heart team approach towards revascularization when she recovers from her respiratory issues. (4) Coronary artery disease: PLAN: See #1 and 3 above. (5) Left ventricular systolic dysfunction (LVSD): PLAN: Continue beta-blockers. Increase dose as tolerated. Start on low-dose SHANNON inhibitors. (6) Acute hypoxemic respiratory failure: PLAN: Mechanically ventilated. Follow as per critical care. (7) COPD exacerbation: PLAN: As per pulmonology/critical care. (8) Septic shock: PLAN: Resolved.
[2023-02-13] MEDS: Insulin Glargine-YFGN 100 UNIT/ML Pen 10 UNIT SC (11:52)
[2023-02-13] MEDS: 0.9% Saline Lock 10 ML Syringe IV ×2 (11:53→21:12)
[2023-02-13] MEDS: Pantoprazole Sodium 40 MG in 0.9% Normal Saline (100mL MB+) 100 ML 330 MG IV (11:55)
[2023-02-13] MEDS: Midazolam 50 MG in 0.9% Normal Saline (100mL Bag) 90 ML CONT INF (15:34)
[2023-02-13] MEDS: Amiodarone 200 MG Tablet PO ×2 (16:11→21:12)
[2023-02-13] MEDS: Lisinopril 2.5 MG Tablet PO (16:11)
[2023-02-13] MEDS: Vital AF 1.2 Cal Liquid 1,000 ML 45 ML GT (16:28)
[2023-02-13] MEDS: cloNIDine HCl 0.2 MG Tablet 0.200000000000000011 MG PO ×2 (16:28→21:12)
--- NOTE | 2023-02-13 17:13 | PN.CC_ITS ---
Assessment & Plan Assessment/Plan (1) COPD exacerbation: (2) NSTEMI (non-ST elevated myocardial infarction): (3) Acute hypoxemic respiratory failure: (4) Cardiac arrest: PLAN: Plan RECOMMENDATIONS: * Continues to fail SBT with tachycardia and tachypnea. * She was started on amio per cardiology * 1 out of 2 bottles growing coagulase-negative staph. Likely contamination. Will obtain another set of blood cultures. Patient remains on Vanco and cefepime. Sputum culture showing normal respiratory sanju * Fever has improved since Precedex was switched off * discontinued central line 02/12. * DC propofol as triglycerides this morning were over 500. Patient was switched to Versed drip as she has been difficult to sedate * Solu-Medrol to 40 twice daily continue breathing treatments * Completed Tamiflu 02/12 * Prognosis is poor given patient's multi organ failure and need for CABG. family meeting conducted the patient's 2 daughters and her son over the phone. We discussed the patient's current clinical status and comorbid conditions including her CBC ED which is going to require a CABG. We also discussed that she is still being treated for sepsis. We discussed the options including trach and PEG versus palliative extubation if she continues to fail. Family would like to think about all these options. IMPRESSIONS: 1. Acute on chronic hypoxemic respiratory failure The patient has a baseline of reported COPD of unknown severity along with chronic hypoxemic respiratory failure with a baseline requirement of 2 L/min. She presented with worsening shortness of breath in the setting of influenza A and pneumococcal pneumonia. The patient was ultimately intubated. Plan to continue assist-control mode of mechanical ventilation and wean FiO2 and PEEP to maintain saturations at or above 90%. The patient will be continued on scheduled bronchodilators, steroids, antibiotics and Tamiflu. Will keep steroids at current dosing until able to be extubated. Spontaneous breathing and awakening trials per protocol. 2. Septic shock Off Levophed. The patient presented to the hospital with sepsis due to influenza A, pneumococcal and MSSA pneumonia with acute sepsis related organ dysfunction as evidenced by lactic acidemia and respiratory failure requiring invasive mechanical ventilatory support. Patient does appear to have MSSA growing from multiple cultures also. Continue supportive care along with antimicrobials. Patient is no longer requiring pressors or having fevers 3. NSTEMI/cardiac arrest The patient's hospital course has been complicated by a V-fib cardiac arrest with successful ROSC. The patient underwent cardiac catheterization wh ich revealed multivessel coronary disease, for which evaluation by CT surgery was recommended. Will defer the urgency with regard to her revascularization to cardiology, who is following to assist with medical management. Patient has the potential of a clot in the pericardium, so no heparin is recommended 4. History of tobacco dependency/hypertension/history of TIA Complicates care, management, recovery and prognosis. Continue to hold baseline antihypertensives. 5. Prolonged QTc Cardiology following. May need to discontinue amiodarone. Defer to cardiology. Will discontinue Zithromax, but other antibiotics are necessary TIME: 45 minutes of critical care time, independent of procedures, was spent addressing the patient's acute on chronic hypoxemic respiratory failure, septic shock, NSTEMI/cardiac arrest, review of all data and collaboration with the care team. Subjective Subjective No acute events. Pts TG was high >500 thus propofol was d/moise and pt was switched to versed ggt as she has been agitated. Family at bedside family meeting conducted the patient's 2 daughters and her son over the phone. We discussed the patient's current clinical status and comorbid conditions including her CBC ED which is going to require a CABG. We also discussed that she is still being treated for sepsis. We discussed the options including trach and PEG versus palliative extubation if she continues to fail. Family would like to think about all these options. Objective Data Objective Data Vital Signs: Vital Signs Temp Pulse Resp BP Pulse Ox O2 Del Method O2 Flow Rate 37.4 C H 158 H 16 136/81 H 96 Mechanical Ventilator 30 02/13/23 07:00 02/13/23 15:39 02/13/23 15:39 02/13/23 07:26 02/13/23 15:39 02/13/23 16:00 02/09/23 08:31 FiO2 35 02/13/23 16:00 Oxygen Flow Rate (L/min) 30 Oxygen Delivery Method Mechanical Ventilator Weight: 65.9 kg Body Mass Index (BMI) 28.3 Intake & Output: Intake and Output for Last 24 Hours 02/11/23 02/12/23 02/13/23 23:59 23:59 23:59 Intake Total 1996.78 / 2098.18 2521.73 / 2605.12 2392.41 / 2392.41 Output Total 525 / 525 1210 / 1460 685 / 685 Balance 1472.78 / 1574.18 1311.73 / 1145.12 1707.41 / 1707.41 Lab / Micro Data 02/13/23 05:46 02/13/23 05:46 Labs: Laboratory Results - last 24 hr 02/12/23 17:01: POC Glucose 197 H 02/12/23 23:06: POC Glucose 152 H 02/13/23 05:46: WBC 21.6 H, RBC 3.74 L, Hgb 10.9 L, Hct 34.6 L, MCV 92.5, MCH 29.1, MCHC 31.5 L, RDW Std Deviation 47.1 H, RDW Coeff of Angie 14.1, Plt Count 350, MPV 11.5, Immature Gran % (Auto) 2.300 H, Neut % (Auto) 90.4 H, Lymph % (Auto) 2.6 L, [place] % (Auto) 4.5, Eos % (Auto) 0.0, Baso % (Auto) 0.2, Absolute Neuts (auto) 19.6 H, Absolute Lymphs (auto) 0.56 L, Nucleated RBC % 0.1, Differential Comment SCANNED, Sodium 138, Potassium 4.3, Chloride 106, Carbon Dioxide 29.0, Anion Gap 3 L, BUN 24 H, Creatinine 0.70, Estim Creat Clear Calc 60.62, Est GFR (MDRD) Af Amer 109, Est GFR (MDRD) Non-Af 90, BUN/Creatinine Ratio 34.2 H, Glucose 224 H, Calcium 6.7 L, Phosphorus 1.8 L, Magnesium 2.0, Total Creatine Kinase 135, Triglycerides 607 H, POC Glucose 205 H 02/13/23 06:40: Ionized Calcium 4.36 02/13/23 11:08: POC Glucose 194 H Micro: Microbiology 02/12/23 10:20 Sputum, Induced/Lukens Gram Stain - Final 02/12/23 10:20 Sputum, Induced/Lukens Respiratory Culture - Preliminary Appears to be normal respiratory sanju. Further studies to follow. 02/12/23 10:30 Blood Culture (Wb) - Right Forearm Bacteria Detection (PCR) - Final Coag Negative Staph 02/12/23 10:30 Blood Culture (Wb) - Right Forearm Blood Culture - Preliminary 02/08/23 18:15 Blood Culture (Wb) - Right Hand Blood Culture - Preliminary No growth in 48 hours. 02/08/23 18:05 Blood Culture (Wb) - Line Draw Blood Culture - Preliminary No growth in 48 hours. 02/07/23 17:00 Sputum, Induced/Lukens Gram Stain - Final 02/07/23 17:00 Sputum, Induced/Lukens Respiratory Culture - Final Staphylococcus aureus 02/07/23 21:45 Urine Catheter - Uribe Legionella Antigen - Final 02/07/23 21:45 Urine Catheter - Uribe Streptococcus pneumoniae Antigen (M - Final Streptococcus pneumonia Ag 02/07/23 17:12 Mucosa - Nose Coronavirus COVID-19 PCR - Final 02/07/23 17:12 Mucosa - Nose Respiratory Panel (PCR) - Final Influenza A (Subtype H1) Physical Exam Const Constitutional Narrative: Intubated, sedated and mechanically ventilated. No ventilator dyssynchrony. HEENT normocephalic and head/scalp atraumatic Eyes PERRL and EOMs intact bilaterally Neck supple General: trachea midline and CVC in place Resp Auscultation: wheezes expiratory wheezes (End) and diminished lung sounds; Negative for rales or rhonchi Cardio regular rate, regular rhythm, S1 normal heart sound, S2 normal heart sound, no murmurs and no rub GI normal to inspection, nondistended, normoactive bowel sounds Neuro Sensorium / Orientation: sedated on vent Charges/Coding Procedures Hospitalists Procedures: [id number] Critical Care 1st Hr
[2023-02-13] MEDS: Vancomycin Trough/Random Due 1 LAB MC (19:40)
[2023-02-13 20:15] LABS: Bedside Glucose 204 mg/dL (74-106)
[2023-02-13] MEDS: Enoxaparin 60 MG/0.6 ML Syringe SC (21:11)
[2023-02-13] MEDS: Atorvastatin Calcium 80 MG Tablet GT (21:12)
[2023-02-13] MEDS: 0.9% Normal Saline (1000mL) 1,000 ML 999 ML IV (23:05)
[2023-02-13 23:13] LABS: Vancomycin, Trough Level 15.4 ug/mL (5.0-15.0)
--- NOTE | 2023-02-13 23:33 | PCM.RX.CS ---
Consult Antibiotic Management Pharmacy has been consulted to manage selected antibiotic: Vancomycin Type of Intervention Type of Consult: Follow-up Labs Labs: Sodium 138 mmol/L (136-145) 02/13/23 05:46 Potassium 4.3 mmol/L (3.5-5.1) 02/13/23 05:46 Chloride 106 mmol/L (98-107) 02/13/23 05:46 Carbon Dioxide 29.0 mmol/L (21.0-32.0) 02/13/23 05:46 Anion Gap 3 (5-15) L 02/13/23 05:46 BUN 24 mg/dL (7-18) H 02/13/23 05:46 Creatinine 0.70 mg/dL (0.55-1.02) 02/13/23 05:46 Est GFR (MDRD) Af Amer 109 mL/min (>60) 02/13/23 05:46 Est GFR (MDRD) Non-Af 90 mL/min (>60) 02/13/23 05:46 BUN/Creatinine Ratio 34.2 RATIO (10-20) H 02/13/23 05:46 Glucose 224 mg/dL (74-106) H 02/13/23 05:46 Vancomycin Trough 15.4 ug/mL (5.0-15.0) H 02/13/23 22:36 Microbiology Microbiology: Microbiology 02/12/23 10:20 Sputum, Induced/Lukens Gram Stain - Final 02/12/23 10:20 Sputum, Induced/Lukens Respiratory Culture - Preliminary Appears to be normal respiratory sanju. Further studies to follow. 02/12/23 10:30 Blood Culture (Wb) - Right Forearm Bacteria Detection (PCR) - Final Coag Negative Staph 02/12/23 10:30 Blood Culture (Wb) - Right Forearm Blood Culture - Preliminary 02/08/23 18:15 Blood Culture (Wb) - Right Hand Blood Culture - Preliminary No growth in 48 hours. 02/08/23 18:05 Blood Culture (Wb) - Line Draw Blood Culture - Preliminary No growth in 48 hours. 02/07/23 17:00 Sputum, Induced/Lukens Gram Stain - Final 02/07/23 17:00 Sputum, Induced/Lukens Respiratory Culture - Final Staphylococcus aureus 02/07/23 21:45 Urine Catheter - Uribe Legionella Antigen - Final 02/07/23 21:45 Urine Catheter - Uribe Streptococcus pneumoniae Antigen (M - Final Streptococcus pneumonia Ag 02/07/23 17:12 Mucosa - Nose Coronavirus COVID-19 PCR - Final 02/07/23 17:12 Mucosa - Nose Respiratory Panel (PCR) - Final Influenza A (Subtype H1) Dosing Weight Weight used for dosin.9 kg Estimated Creatinine Clearance Estimated Creatinine Clearance: 72 Goal Trough Goal Trough: 15-20 mcg/mL Pharmacy Plan for Drug Dosing Pharmacy Plan for Drug Dosing: Vancomycin trough level drawn 11 hours post-dose was 15.4, which is within the target range of 15-20. Will continue dosing at 750mg q12h and will draw another trough in two days. Pharmacy Service will continue to monitor and adjust dosing as required. Follow-Up Labs Follow-Up Labs: Trough: Vancomycin Date/Time Labs Ordered Labs to be done on [date and time ordered]: 02/15/23 @2200
[2023-02-13 23:49] LABS: Bedside Glucose 164 mg/dL (74-106)
[2023-02-14] VITALS (44 sets, daily range): BP systolic 64–173; BP diastolic 35–118; PULSE 58–155; RESP 14–26; TEMP 37.2–37.9; O2SAT 90–100; BMI 29.4
[2023-02-14] MEDS: Norepinephrine 8 MG in 0.9% Normal Saline (250mL Bag) 242 ML 9.40000000000000036 MG CONT INF (00:45)
[2023-02-14 04:57] LABS: Absolute Lymphocyte Count 0.56 X10^3/uL (0.83-4.51); Absolute Neutrophil Count 23.2 X10^3/uL (2.0-7.7); Basophil# 0.06 X10^3/uL; Basophil% 0.2 % (0-1); Hematocrit 37.7 % (37-47); Hemoglobin 11.7 g/dL (12.0-15.0); Lymphocyte # 0.56 X10^3/ul (0.83-4.51); Lymphocyte % 2.2 % (19-41); Mean Corpuscular Hgb 28.7 pg (27.0-32.0); Mean Corpuscular Volume 92.6 fL (81-99); Mean Platelet Vol. 11.8 fl (6.2-12.0); Monocyte# 0.85 X10^3/uL; Monocyte% 3.4 % (0-10); NRBC Flagged by Analyzer 0.2 % (0-5); Neutrophil # 23.23 X10^3/uL (2.7-7.7); Neutrophil % 92.1 % (47-70); POSITIVE DIFFERENTIAL YES; Platelet Count 466 K/mm3 (150-450); RBC Distribution Width CV 14.3 % (11.6-14.6); RBC Distribution Width SD 47.3 fl (35.1-43.9); Red Blood Count 4.07 M/mm3 (4.2-5.4); White Blood Count 25.2 K/mm3 (4.4-11.0)
[2023-02-14 05:08] LABS: Differential Indicated SCAN CRITERIA MET
[2023-02-14 05:14] LABS: Anion Gap 7 (5-15); BUN 21 mg/dL (7-18); BUN/Creat Ratio 32.5 RATIO (10-20); Calcium,Total 7.5 mg/dL (8.5-10.1); Chloride 106 mmol/L (98-107); Creatinine, Serum 0.65 mg/dL (0.55-1.02); EST Glomerular Filtration Rate 99 mL/min (>60); Est Glom Filt Rate - Afr Amer 120 mL/min (>60); Estimated Creatinine Clearance 65.28 ml/min; Glucose 229 mg/dL (74-106); Magnesium 2.1 mg/dL (1.6-2.6); Potassium 4.6 mmol/L (3.5-5.1); Sodium Level 140 mmol/L (136-145)
[2023-02-14 05:25] LABS: Phosphorus 2.2 mg/dL (2.5-4.9)
[2023-02-14 05:39] LABS: Ionized Calcium 4.46 mg/dL (4.36-5.20)
[2023-02-14 06:02] LABS: Differential Comment SCANNED
[2023-02-14] MEDS: Miconazole Nitrate 43 GM Bottle 1 APPLIC TOPICAL ×3 (06:36→20:29)
[2023-02-14] MEDS: Insulin Lispro 100 UNIT/ML INSULN.PEN SC ×2 (06:38→17:51)
[2023-02-14 06:57] LABS: Bedside Glucose 225 mg/dL (74-106)
--- NOTE | 2023-02-14 07:05 | PN.HOSP_ITS ---
Reason for Visit Reason for Visit: Diagnoses Sepsis, unspecified organism (02/07/23) Non-ST elevation (NSTEMI) myocardial infarction (02/07/23) Atherosclerotic heart disease of [place] coronary artery without angina pectoris (02/07/23) Cardiac arrest, cause unspecified (02/07/23) Paroxysmal atrial fibrillation (02/07/23) Unspecified atrial fibrillation (02/07/23) Heart disease, unspecified (02/07/23) Chronic obstructive pulmonary disease with (acute) exacerbation (02/07/23) Acute respiratory failure with hypoxia (02/07/23) Severe sepsis with septic shock (02/07/23) Subjective Subjective Patient seen awake on the vent. Patient had to be started on Levophed drip for persistently low blood pressure. Was also started on amiodarone drip the day prior by cardiology. Patient back in sinus rhythm Objective Data Objective Data Vital Signs: Vital Signs Temp Pulse Resp BP Pulse Ox O2 Del Method O2 Flow Rate 99.0 F 89 16 139/68 H 91 Mechanical Ventilator 30 02/14/23 05:00 02/14/23 07:00 02/14/23 07:00 02/14/23 07:00 02/14/23 07:00 02/14/23 07:00 02/09/23 08:31 FiO2 35 02/14/23 05:00 Oxygen Flow Rate (L/min) 30 Oxygen Delivery Method Mechanical Ventilator Weight: 67.9 kg Body Mass Index (BMI) 29.4 Intake & Output: Intake and Output for Last 24 Hours 02/12/23 02/13/23 02/14/23 23:59 23:59 23:59 Intake Total 2521.73 / 2605.12 2800.11 / 2812.11 2036.50 / 2036.50 Output Total 1210 / 1460 1115 / 1115 Balance 1311.73 / 1145.12 1685.11 / 1697.11 2036.50 / 7.50 Lab / Micro Data 02/14/23 04:40 02/14/23 04:40 Labs: Laboratory Results - last 24 hr 02/13/23 05:46: Total Creatine Kinase 135, Triglycerides 607 H 02/13/23 11:08: POC Glucose 194 H 02/13/23 19:38: POC Glucose 204 H 02/13/23 22:36: Vancomycin Trough 15.4 H 02/13/23 23:29: POC Glucose 164 H 02/14/23 04:40: WBC 25.2 H, RBC 4.07 L, Hgb 11.7 L, Hct 37.7, MCV 92.6, MCH 28.7, MCHC 31.0 L, RDW Std Deviation 47.3 H, RDW Coeff of Angie 14.3, Plt Count 466 H, MPV 11.8, Immature Gran % (Auto) 2.100 H, Neut % (Auto) 92.1 H, Lymph % (Auto) 2.2 L, [place] % (Auto) 3.4, Eos % (Auto) 0.0, Baso % (Auto) 0.2, Absolute Neuts (auto) 23.2 H, Absolute Lymphs (auto) 0.56 L, Nucleated RBC % 0.2, Differential Comment SCANNED, Sodium 140, Potassium 4.6, Chloride 106, Carbon Dioxide 27.0, Anion Gap 7, BUN 21 H, Creatinine 0.65, Estim Creat Clear Calc 65.28, Est GFR (MDRD) Af Amer 120, Est GFR (MDRD) Non-Af 99, BUN/Creatinine Ratio 32.5 H, Glucose 229 H, Calcium 7.5 L, Phosphorus 2.2 L, Magnesium 2.1 02/14/23 05:34: Ionized Calcium 4.46 02/14/23 06:38: POC Glucose 225 H Micro: Microbiology 02/08/23 18:15 Blood Culture (Wb) - Right Hand Blood Culture - Final No growth in 5 days. 02/08/23 18:05 Blood Culture (Wb) - Line Draw Blood Culture - Final No growth in 5 days. 02/12/23 10:20 Sputum, Induced/Lukens Gram Stain - Final 02/12/23 10:20 Sputum, Induced/Lukens Respiratory Culture - Preliminary Appears to be normal respiratory sanju. Further studies to follow. 02/12/23 10:30 Blood Culture (Wb) - Right Forearm Bacteria Detection (PCR) - Final Coag Negative Staph 02/12/23 10:30 Blood Culture (Wb) - Right Forearm Blood Culture - Preliminary 02/07/23 17:00 Sputum, Induced/Lukens Gram Stain - Final 02/07/23 17:00 Sputum, Induced/Lukens Respiratory Culture - Final Staphylococcus aureus 02/07/23 21:45 Urine Catheter - Uribe Legionella Antigen - Final 02/07/23 21:45 Urine Catheter - Uribe Streptococcus pneumoniae Antigen (M - Final Streptococcus pneumonia Ag 02/07/23 17:12 Mucosa - Nose Coronavirus COVID-19 PCR - Final 02/07/23 17:12 Mucosa - Nose Respiratory Panel (PCR) - Final Influenza A (Subtype H1) Physical Exam Narrative GENERAL: Patient on the vent HEENT: Atraumatic; normocephalic EYES; Anicteric, Normal Conjunctiva NECK; supple, normal thyroid, RESPIRATORY: Diminished to auscultation CARDIOVASCULAR: Regular S1 S2, GI: soft, normoactive bowel sounds, : No Renal angle tenderness; EXTREMITIES: No edema, no clubbing, MUSCULOSKELETAL: no muscle wasting NEURO: Awake on the vent SKIN: No Rash PSYCH; Flat affect Assessment & Plan Assessment/Plan (1) COPD exacerbation: (2) Acute hypoxemic respiratory failure: PLAN: Plan Patient is a 62-year-old gentleman who was transferred from an outside hospital in respiratory failure. Manage initially with noninvasive ventilation patient later went into cardiac arrest and was successfully resuscitated with ROSC S. Was found to have elevated troponin underwent left heart catheterization which revealed multivessel coronary artery disease. Patient remains on the vent 1. Acute on chronic hypoxic respiratory failure ? Patient failed initial treatment with noninvasive ventilation went into cardiac arrest successfully intubated. Patient has since been managed by pulmonary medicine ? 02/12/2023; patient remains on the vent. Did fail her weaning trial this a.m. ? 02/13/2023; remains on the vent ? 02/14/2023; patient remains on the vent currently undergoing weaning trial 2. Cardiac arrest ? Patient rhythm was 1 of V-fib successfully resuscitated using ACLS with ROSC. 3. Acute non-STEMI complicated by cardiac arrest ? Patient underwent successful left heart catheterization which demonstrated multivessel disease. Cardiology recommended evaluation by cardiothoracic surgery. Decision for patient to undergo the evaluation by cardiothoracic surgery deferred to cardiology -2D echo obtained demonstrated EF of 15 to 20% with moderate anterior pericardial effusion 4. Septic shock ? Secondary to influenza 80 and pneumococcal pneumonia. Present on admission. Patient has since been managed with broad-spectrum antibiotic therapy in addition to Tamiflu as well as mechanical ventilation -02/12/2023; patient grew MSSA in the sputum and streptococcal pneumonia antigen in the urine came back positive ? 02/12/2023; Continues to spike fever. Case discussed with diamond sorter plan is for patient to be pancultured and antibiotic therapy broadened to include vancomycin to cover for possible MRSA and MDR ? 02/13/2023; patient continues to spike fever. She was pancultured the day prior, results pending ? 02/14/2023; patient repeat blood cultures positive for coagulase negative staph. Repeat blood cultures ordered and if positive will request ARIEL by cardiology 5. Paroxysmal A-fib with RVR ? Patient was started on amiodarone drip and converted back to sinus 6. Essential hypertension ? Per history patient antihypertensives on hold 7. Tobacco dependence ? Plan is to marriage and family counselor patient on cessation following extubation from the vent 8. DVT prophylaxis ? HI Kerrie Time spent in the patient's overall evaluation,decision-making process, review of diagnostic data, adjustment of management, discussion with other providers, nursing nursing and ancillary staff involved in patient's care documentation, 50 Minutes Charges/Coding Visit Charges Inpatient E&M: 89790 [facility] Hosp L3
[2023-02-14] MEDS: Ipratropium/Albuterol Sulfate 3 ML AMPUL.NEB INHALATION ×4 (07:24→19:05)
[2023-02-14 08:27] LABS: Allen Test Positive; Base Excess 3 mmol/L (-2 to +2); Bicarbonate 28.3 mmol/L (22-26); Blood Gas Specimen Type ART; Mode CPAP/PS; O2 Delivery Device Adult Vent; PEEP 5; PO2 63 mmHG (75-100); SITE R Radial; SO2 91 % (95-99); Total Carbon Dioxide 30 mmol/L; pCO2 48.9 mmHg (35-45); pH 7.37 (7.35-7.45)
--- NOTE | 2023-02-14 08:30 | NURSING ---
Per Dr. Cole's request, pt's son Sofia called by this RN. Disc pt condition, on breathing trial and doing well. Request family disc plan for after extubation. questions answered. He states he will speak w/his sisters and return call.
[2023-02-14] MEDS: Amiodarone 200 MG Tablet PO ×2 (09:10→20:27)
[2023-02-14] MEDS: cloNIDine HCl 0.2 MG Tablet 0.200000000000000011 MG PO ×3 (09:10→20:27)
[2023-02-14] MEDS: Enoxaparin 60 MG/0.6 ML Syringe SC ×2 (09:10→20:28)
[2023-02-14] MEDS: Clopidogrel Bisulfate 75 MG Tablet GT (09:10)
[2023-02-14] MEDS: Metoprolol Tartrate 25 MG Tablet 12.5 MG PO ×2 (09:16→20:27)
[2023-02-14] MEDS: Chlorhexidine 15 ML PO ×2 (09:33→20:29)
[2023-02-14] MEDS: Cefepime HCl 1 GM in 0.9% Normal Saline (50mL MB+) 50 ML IV ×2 (10:18→22:24)
--- NOTE | 2023-02-14 10:30 | NURSING ---
pt's 2 daughters, her son and his , a grandson and pt's boyfriend all present. spoke at length w/Dr. Cole regarding plan if pt should need to be reintubated. All family then to pt's room to clarify w/pt who is AOx3 and CAM neg. Pt indicates with the use of yes/no questions that she wishes to OET to be taken out, she does not want the tube put back, she understands she may have difficulty breathing, she agrees to use bipap if needed, she does not want CPR/shock or re-intubation. family given some time w/pt.
[2023-02-14] MEDS: Vancomycin HCl 750 MG in 0.9% Normal Saline (250mL Bag) 250 ML 250 MG IV ×2 (10:50→22:22)
[2023-02-14] MEDS: Midazolam 2 MG/2 ML Syringe IV (11:29)
--- NOTE | 2023-02-14 11:45 | NURSING ---
This RN found pt anxiously pulling on restraints, indicating she is having trouble breathing. Family states they have been double checking w/pt to make sure she understands the gravity of her choices. There appears to be some dissention among the family members. They do all state whatever mom wants . This RN asked all to leave the room for a time. Dr. Cole spoke w/pt alone, She now indicates w/the use of yes/no questions, that she doesn't wish to be extubated today, she does wish to have CPR/Shock if required. family notified pt choice.
[2023-02-14] MEDS: Pantoprazole Sodium 40 MG in 0.9% Normal Saline (100mL MB+) 100 ML 330 MG IV (13:13)
[2023-02-14 14:02] LABS: Bedside Glucose 157 mg/dL (74-106)
--- NOTE | 2023-02-14 14:22 | PN.CC_ITS ---
Assessment & Plan Assessment/Plan (1) COPD exacerbation: (2) NSTEMI (non-ST elevated myocardial infarction): (3) Acute hypoxemic respiratory failure: (4) Cardiac arrest: PLAN: Plan RECOMMENDATIONS: * Patient initially passed SBT however towards end of her trial she was tachypneic with shallow breaths tachycardic and hypoxic Will administer a dose of lasix. CXR for tomorrow AM * 1 out of 2 bottles growing coagulase-negative staph. Likely contamination. Will obtain another set of blood cultures. Patient remains on Vanco and cefepime. Sputum culture showing normal respiratory sanju * Fever has resolved since Precedex was switched off * discontinued central line 02/12. * She is off levophed * DC'd propofol as triglycerides were over 500. Patient was switched to Versed drip as she has been difficult to sedate with just fentanyl ggt. Clonidine increased to 0.2 tid. QTc prolonged thus holding seroquel * electrolyte replacement * Cont Solu-Medrol 40 twice daily * Completed Tamiflu 02/12 * Lovenox increased to 60 bid by cardiology. lisinopril was added as well * Prognosis is poor given patient's multi organ failure, chronic conditions and need for CABG. Long discussions today with the patient and her family. She initially passed SBT however towards the end of her trial she was hypoxic tachycardic and tachypneic with shallow breaths. Patient was initially indicating that she wants the tube out regardless of the outcome however family was emotional and convinced patient to switch her code status back to full code. Plan to try SBT again tomorrow and extubate if she passes. Family and patient agree with this plan. IMPRESSIONS: 1. Acute on chronic hypoxemic respiratory failure The patient has a baseline of reported COPD of unknown severity along with chronic hypoxemic respiratory failure with a baseline requirement of 2 L/min. She presented with worsening shortness of breath in the setting of influenza A and pneumococcal pneumonia. The patient was ultimately intubated. Plan to continue assist-control mode of mechanical ventilation and wean FiO2 and PEEP to maintain saturations at or above 90%. The patient will be continued on scheduled bronchodilators, steroids, antibiotics and Tamiflu. Will keep steroids at current dosing until able to be extubated. Spontaneous breathing and awakening trials per protocol. 2. Septic shock Off Levophed. The patient presented to the hospital with sepsis due to influenza A, pneumococcal and MSSA pneumonia with acute sepsis related organ dysfunction as evidenced by lactic acidemia and respiratory failure requiring invasive mechanical ventilatory support. Patient does appear to have MSSA growing from multiple cultures also. Continue supportive care along with antimicrobials. Patient is no longer requiring pressors or having fevers 3. NSTEMI/cardiac arrest The patient's hospital course has been complicated by a V-fib cardiac arrest with successful ROSC. The patient underwent cardiac catheterization which revealed multivessel coronary disease, for which evaluation by CT surgery was recommended. Will defer the urgency with regard to her revascularization to cardiology, who is following to assist with medical management. Patient has the potential of a clot in the pericardium, so no heparin is recommended 4. History of tobacco dependency/hypertension/history of TIA Complicates care, management, recovery and prognosis. Continue to hold baseline antihypertensives. 5. Prolonged QTc Cardiology following. May need to discontinue amiodarone. Defer to cardiology. Will discontinue Zithromax, but other antibiotics are necessary TIME: 55 minutes of critical care time, independent of procedures, was spent addressing the patient's acute on chronic hypoxemic respiratory failure, septic shock, NSTEMI/cardiac arrest, review of all data and collaboration with the care team. Subjective Subjective Long discussions today with the patient and her family. She initially passed SBT however towards the end of her trial she was hypoxic tachycardic and tachypneic with shallow breaths. Patient was initially indicating that she wants the tube out regardless of the outcome however family was emotional and convinced patient to switch her code status back to full code. Objective Data Objective Data Vital Signs: Vital Signs Temp Pulse Resp BP Pulse Ox O2 Del Method O2 Flow Rate 37.2 C 121 H 120 H 166/95 H 92 Mechanical Ventilator 02/14/23 05:00 02/14/23 13:29 02/14/23 13:29 02/14/23 09:16 02/14/23 13:29 02/14/23 07:24 02/09/23 08:31 FiO2 30 02/14/23 13:29 Oxygen Flow Rate (L/min) 30 Oxygen Delivery Method Mechanical Ventilator Weight: 67.9 kg Body Mass Index (BMI) 29.4 Intake & Output: Intake and Output for Last 24 Hours 02/12/23 02/13/23 02/14/23 23:59 23:59 23:59 Intake Total 2521.73 / 2605.12 2800.11 / 2812.11 2044.67 / 2044.67 Output Total 1210 / 1460 1115 / 1115 360 / 360 Balance 1311.73 / 1145.12 1685.11 / 1697.11 1684.67 / 1684.67 Lab / Micro Data 02/14/23 04:40 02/14/23 04:40 Labs: Laboratory Results - last 24 hr 02/13/23 19:38: POC Glucose 204 H 02/13/23 22:36: Vancomycin Trough 15.4 H 02/13/23 23:29: POC Glucose 164 H 02/14/23 04:40: WBC 25.2 H, RBC 4.07 L, Hgb 11.7 L, Hct 37.7, MCV 92.6, MCH 28.7, MCHC 31.0 L, RDW Std Deviation 47.3 H, RDW Coeff of Angie 14.3, Plt Count 466 H, MPV 11.8, Immature Gran % (Auto) 2.100 H, Neut % (Auto) 92.1 H, Lymph % (Auto) 2.2 L, [place] % (Auto) 3.4, Eos % (Auto) 0.0, Baso % (Auto) 0.2, Absolute Neuts (auto) 23.2 H, Absolute Lymphs (auto) 0.56 L, Nucleated RBC % 0.2, Differential Comment SCANNED, Sodium 140, Potassium 4.6, Chloride 106, Carbon Dioxide 27.0, Anion Gap 7, BUN 21 H, Creatinine 0.65, Estim Creat Clear Calc 65.28, Est GFR (MDRD) Af Amer 120, Est GFR (MDRD) Non-Af 99, BUN/Creatinine Ratio 32.5 H, Glucose 229 H, Calcium 7.5 L, Phosphorus 2.2 L, Magnesium 2.1 02/14/23 05:34: Ionized Calcium 4.46 02/14/23 06:38: POC Glucose 225 H 02/14/23 13:42: POC Glucose 157 H Micro: Microbiology 02/12/23 09:50 Blood Culture (Wb) - Central Line Blood Culture - Preliminary No growth in 48 hours. 02/12/23 10:30 Blood Culture (Wb) - Right Forearm Bacteria Detection (PCR) - Final Coag Negative Staph 02/12/23 10:30 Blood Culture (Wb) - Right Forearm Blood Culture - Preliminary Coag Negative Staph 02/12/23 10:20 Sputum, Induced/Lukens Gram Stain - Final 02/12/23 10:20 Sputum, Induced/Lukens Respiratory Culture - Final Presumptive C albicans 02/08/23 18:15 Blood Culture (Wb) - Right Hand Blood Culture - Final No growth in 5 days. 02/08/23 18:05 Blood Culture (Wb) - Line Draw Blood Culture - Final No growth in 5 days. 02/07/23 17:00 Sputum, Induced/Lukens Gram Stain - Final 02/07/23 17:00 Sputum, Induced/Lukens Respiratory Culture - Final Staphylococcus aureus 02/07/23 21:45 Urine Catheter - Uribe Legionella Antigen - Final 02/07/23 21:45 Urine Catheter - Uribe Streptococcus pneumoniae Antigen (M - Final Streptococcus pneumonia Ag 02/07/23 17:12 Mucosa - Nose Coronavirus COVID-19 PCR - Final 02/07/23 17:12 Mucosa - Nose Respiratory Panel (PCR) - Final Influenza A (Subtype H1) ABG Data ABG results: ABG 02/14/23 08:22 Specimen Type ART Sample Site R Radial pH 7.37 Bicarbonate Actual 28.3 H Total CO2 30 Base Excess 3 H O2 Saturation 91 L O2 % 35.0 ABG pCO2 48.9 H ABG pO2 63 L Marvin Test Positive O2 Delivery Device Adult Vent Vent Mode CPAP/PS POC PEEP 5 Physical Exam Narrative General intubated, able to follow commands off sedation and answer yes or no questions Respiratory reduced air entry bilaterally, mild end expiratory wheeze, no crackles Cardiac S1-S2, regular rate and rhythm GI abdomen soft and nontender MSK no lower extremity edema Skin no rashes Neuro moves all extremities, follows commands when off sedation Charges/Coding Procedures Hospitalists Procedures: 01394 Critical Care 1st Hr
[2023-02-14] MEDS: Vital AF 1.2 Cal Liquid 1,000 ML 45 ML GT (16:39)
[2023-02-14] MEDS: Furosemide 40 MG/4 ML Vial IV (16:39)
[2023-02-14] MEDS: Sodium Phosphate/Na Biphos 21 MMOL in 0.9% Normal Saline (250mL Bag) 250 ML 84 MMOL IV (16:39)
[2023-02-14] MEDS: fentaNYL drip 100 ML 10 MCG CONT INF (16:42)
[2023-02-14] MEDS: 0.9% Saline Lock 10 ML Syringe IV ×2 (16:42→20:28)
[2023-02-14 18:13] LABS: Bedside Glucose 158 mg/dL (74-106)
[2023-02-14 19:15] LABS: Bedside Glucose 170 mg/dL (74-106)
[2023-02-14] MEDS: Atorvastatin Calcium 80 MG Tablet GT (20:28)
[2023-02-14] MEDS: Acetaminophen 650 MG/20 ML UDC GT (20:39)
[2023-02-15] VITALS (37 sets, daily range): BP systolic 79–140; BP diastolic 52–94; PULSE 66–143; RESP 14–25; TEMP 37.4–38.7; O2SAT 91–98; BMI 28.9
[2023-02-15 00:22] LABS: Bedside Glucose 205 mg/dL (74-106)
[2023-02-15] MEDS: 0.9% Saline Lock 10 ML Syringe IV ×2 (03:27→21:25)
[2023-02-15] MEDS: Albumin Human 25% (100 mL) 25 GM/100 ML BAG IV (03:27)
[2023-02-15 03:40] LABS: Absolute Lymphocyte Count 0.28 X10^3/uL (0.83-4.51); Absolute Neutrophil Count 16.7 X10^3/uL (2.0-7.7); Basophil# 0.02 X10^3/uL; Basophil% 0.1 % (0-1); Hematocrit 33.5 % (37-47); Hemoglobin 10.7 g/dL (12.0-15.0); Lymphocyte # 0.28 X10^3/ul (0.83-4.51); Lymphocyte % 1.5 % (19-41); Mean Corp Hgb Conc 31.9 g/dL (32-36); Mean Corpuscular Hgb 29.2 pg (27.0-32.0); Mean Corpuscular Volume 91.3 fL (81-99); Monocyte# 1.02 X10^3/uL; Monocyte% 5.6 % (0-10); NRBC Flagged by Analyzer 0 % (0-5); Neutrophil # 16.73 X10^3/uL (2.7-7.7); Neutrophil % 91.8 % (47-70); POSITIVE DIFFERENTIAL YES; Platelet Count 374 K/mm3 (150-450); RBC Distribution Width CV 14.4 % (11.6-14.6); RBC Distribution Width SD 46.6 fl (35.1-43.9); Red Blood Count 3.67 M/mm3 (4.2-5.4); White Blood Count 18.2 K/mm3 (4.4-11.0)
[2023-02-15] MEDS: CHLORHEXIDINE GLUC 2% CLOTH 1 EACH TOWELETTE TOPICAL (03:52)
[2023-02-15 04:09] LABS: Anion Gap 5 (5-15); BUN 22 mg/dL (7-18); BUN/Creat Ratio 29.8 RATIO (10-20); Calcium,Total 7.5 mg/dL (8.5-10.1); Chloride 106 mmol/L (98-107); Creatinine, Serum 0.74 mg/dL (0.55-1.02); EST Glomerular Filtration Rate 85 mL/min (>60); Est Glom Filt Rate - Afr Amer 103 mL/min (>60); Estimated Creatinine Clearance 57.34 ml/min; Glucose 195 mg/dL (74-106); Magnesium 2.1 mg/dL (1.6-2.6); Phosphorus 3.1 mg/dL (2.5-4.9); Potassium 4.4 mmol/L (3.5-5.1); Sodium Level 140 mmol/L (136-145)
[2023-02-15 04:46] LABS: Differential Indicated SCAN CRITERIA MET
[2023-02-15 04:47] LABS: Differential Comment SCANNED
[2023-02-15] MEDS: cloNIDine HCl 0.2 MG Tablet 0.200000000000000011 MG PO ×2 (05:39→13:30)
[2023-02-15] MEDS: Miconazole Nitrate 43 GM Bottle 1 APPLIC TOPICAL ×3 (05:39→20:51)
[2023-02-15] MEDS: Insulin Lispro 100 UNIT/ML INSULN.PEN SC ×5 (05:44→23:30)
[2023-02-15] MEDS: fentaNYL drip 100 ML 10 MCG CONT INF (05:50)
--- NOTE | 2023-02-15 05:55 | RAD_ITS ---
INDICATION: pulm edema EXAMINATION/TECHNIQUE: X-RAY - XR Chest 1 View AP portable. 5:45 AM COMPARISON: 02/08/2023 FINDINGS: LINES/DEVICES: Tip of the endotracheal tube is 1.5 cm above the sapna. NG tube tip in the stomach. Central venous catheter was removed since the prior. LUNGS: Alveolar infiltrates bilaterally most pronounced at the lung bases slightly increased compared to the prior. Small left pleural effusion increased. No pneumothorax. MEDIASTINUM: Unremarkable. CARDIAC SILHOUETTE: Not enlarged. BONES AND SOFT TISSUES: No acute abnormalities. RAD/Chest 1 View (Portable) IMPRESSION: Bilateral airspace disease slightly increased with small left pleural effusion likely pneumonia. Asymmetric pulmonary edema less likely. Electronically Signed: Cristine Kunz MD at 7:19 EST ,
[2023-02-15 06:02] LABS: Bedside Glucose 166 mg/dL (74-106)
[2023-02-15] MEDS: Midazolam 50 MG in 0.9% Normal Saline (100mL Bag) 90 ML CONT INF (06:05)
[2023-02-15] MEDS: Ipratropium/Albuterol Sulfate 3 ML AMPUL.NEB INHALATION ×4 (06:55→19:20)
--- NOTE | 2023-02-15 07:03 | PN.CC_ITS ---
Assessment & Plan Assessment/Plan (1) COPD exacerbation: (2) NSTEMI (non-ST elevated myocardial infarction): (3) Acute hypoxemic respiratory failure: (4) Cardiac arrest: PLAN: Plan RECOMMENDATIONS: 1. Continue assist-control mode mechanical ventilation. Wean FiO2 and PEEP to maintain saturations at or above 90%. 2. Continue antimicrobials. 3. Continue fentanyl. Discontinue Versed and resume Precedex for sedation. 4. Continue IV Solu-Medrol as ordered. 5. Ongoing diuresis as tolerated by hemodynamics and renal function. 6. Plan to arrange family meeting for goals of care discussion. IMPRESSIONS: 1. Acute on chronic hypoxemic respiratory failure The patient has a baseline of reported COPD of unknown severity along with chronic hypoxemic respiratory failure with a baseline requirement of 2 L/min. She presented with worsening shortness of breath in the setting of influenza A and pneumococcal pneumonia. The patient was ultimately intubated. Plan to continue assist-control mode of mechanical ventilation and wean FiO2 and PEEP to maintain saturations at or above 90%. The patient will be continued on sched uled bronchodilators, steroids, and antibiotics. Plan for ongoing diuresis as tolerated by hemodynamics and renal function. The patient continues to fail spontaneous breathing trials. Therefore, we will plan to arrange a family meeting to discuss goals of care. 2. Septic shock Resolved. The patient presented to the hospital with sepsis due to influenza A, pneumococcal and MSSA pneumonia with acute sepsis related organ dysfunction as evidenced by lactic acidemia and respiratory failure requiring invasive mechanical ventilatory support. Continue supportive care along with antimicrobials. 3. NSTEMI/cardiac arrest The patient's hospital course has been complicated by a V-fib cardiac arrest with successful ROSC. The patient underwent cardiac catheterization which revealed multivessel coronary disease, for which evaluation by CT surgery was recommended. 4. History of tobacco dependency/hypertension/history of TIA Complicates care, management, recovery and prognosis. Continue supportive measures as noted above. Continue tube feeding as tolerated. TIME: 38 minutes of critical care time, independent of procedures, was spent addressing the patient's acute on chronic hypoxemic respiratory failure, septic shock, NSTEMI/cardiac arrest, review of all data and collaboration with the care team. Subjective Subjective The patient was seen and examined at the bedside this morning. Events from the last 24 hours have been reviewed. The patient currently has low-grade fevers but remains otherwise hemodynamically stable. She failed her spontaneous breathing trial this morning. She is no longer requiring any vasopressor support. The patient is documented to be overall net +12.2 L in the hospi talization. White count is elevated at 18,000. The patient remains on antimicrobials and steroids. Additional Lasix was administered this morning. Objective Data Objective Data The patient's most recent lab work, culture data and imaging studies have all been personally reviewed. Surface echocardiogram from February 08 demonstrated severe LV systolic dysfunction with an ejection fraction of 15 to 20%. Lower extremity Doppler study from February 12 was negative for DVT. MSSA was isolated from sputum culture on February 07. Pneumococcal urinary antigen was also positive on February 07. Influenza a screen was positive on February 07. Vital Signs: Vital Signs Temp Pulse Resp BP Pulse Ox O2 Del Method O2 Flow Rate 99.4 F H 109 H 14 121/94 H 92 Mechanical Ventilator 30 02/15/23 06:00 02/15/23 06:56 02/15/23 06:56 02/15/23 06:00 02/15/23 06:56 02/15/23 06:00 02/09/23 08:31 FiO2 35 02/15/23 06:56 Oxygen Flow Rate (L/min) 30 Oxygen Delivery Method Mechanical Ventilator Weight: 147 lb 4.301 oz Body Mass Index (BMI) 28.9 Intake & Output: Intake and Output for Last 24 Hours 02/13/23 02/14/23 02/15/23 23:59 23:59 23:59 Intake Total 2800.11 / 2812.11 3262.87 / 3600.87 1072.58 / 1072.58 Output Total 1115 / 1115 1010 / 1260 535 / 535 Balance 1685.11 / 1697.11 2252.87 / 2340.87 537.58 / 537.58 Lab / Micro Data Attestation: I reviewed the patient's lab results. 02/15/23 03:30 02/15/23 03:30 Labs: Laboratory Results - last 24 hr 02/14/23 13:42: POC Glucose 157 H 02/14/23 17:49: POC Glucose 158 H 02/14/23 18:57: POC Glucose 170 H 02/14/23 23:59: POC Glucose 205 H 02/15/23 03:30: WBC 18.2 H, RBC 3.67 L, Hgb 10.7 L, Hct 33.5 L, MCV 91.3, MCH 29.2, MCHC 31.9 L, RDW Std Deviation 46.6 H, RDW Coeff of Angie 14.4, Plt Count 374, MPV 11.0, Immature Gran % (Auto) 1.000 H, Neut % (Auto) 91.8 H, Lymph % (Auto) 1.5 L, [place] % (Auto) 5.6, Eos % (Auto) 0.0, Baso % (Auto) 0.1, Absolute Neuts (auto) 16.7 H, Absolute Lymphs (auto) 0.28 L, Nucleated RBC % 0, Differential Comment SCANNED, Sodium 140, Potassium 4.4, Chloride 106, Carbon Dioxide 29.0, Anion Gap 5, BUN 22 H, Creatinine 0.74, Estim Creat Clear Calc 57.34, Est GFR (MDRD) Af Amer 103, Est GFR (MDRD) Non-Af 85, BUN/Creatinine Ratio 29.8 H, Glucose 195 H, Calcium 7.5 L, Phosphorus 3.1, Magnesium 2.1 02/15/23 05:44: POC Glucose 166 H Micro: Microbiology 02/12/23 10:30 Blood Culture (Wb) - Right Forearm Bacteria Detection (PCR) - Final Coag Negative Staph 02/12/23 10:30 Blood Culture (Wb) - Right Forearm Blood Culture - Preliminary Coag Negative Staph 02/12/23 09:50 Blood Culture (Wb) - Central Line Blood Culture - Preliminary No growth in 48 hours. 02/12/23 10:20 Sputum, Induced/Lukens Gram Stain - Final 02/12/23 10:20 Sputum, Induced/Lukens Respiratory Culture - Final Presumptive C albicans 02/08/23 18:15 Blood Culture (Wb) - Right Hand Blood Culture - Final No growth in 5 days. 02/08/23 18:05 Blood Culture (Wb) - Line Draw Blood Culture - Final No growth in 5 days. 02/07/23 17:00 Sputum, Induced/Lukens Gram Stain - Final 02/07/23 17:00 Sputum, Induced/Lukens Respiratory Culture - Final Staphylococcus aureus 02/07/23 21:45 Urine Catheter - Uribe Legionella Antigen - Final 02/07/23 21:45 Urine Catheter - Uribe Streptococcus pneumoniae Antigen (M - Final Streptococcus pneumonia Ag 02/07/23 17:12 Mucosa - Nose Coronavirus COVID-19 PCR - Final 02/07/23 17:12 Mucosa - Nose Respiratory Panel (PCR) - Final Influenza A (Subtype H1) ABG Data ABG results: ABG 02/14/23 08:22 Specimen Type ART Sample Site R Radial pH 7.37 Bicarbonate Actual 28.3 H Total CO2 30 Base Excess 3 H O2 Saturation 91 L O2 % 35.0 ABG pCO2 48.9 H ABG pO2 63 L Marvin Test Positive O2 Delivery Device Adult Vent Vent Mode CPAP/PS POC PEEP 5 Physical Exam Const Constitutional Narrative: Intubated, sedated and mechanically ventilated. HEENT normocephalic and head/scalp atraumatic Mouth: endotracheal tube in place and OG tube in place Eyes PERRL and EOMs intact bilaterally Neck supple General: trachea midline Chest inspection of chest normal Resp Auscultation: diminished lung sounds; Negative for rales, rhonchi or wheezes Cardio regular rate, regular rhythm, S1 normal heart sound and S2 normal heart sound GI normal to inspection, nondistended, normoactive bowel sounds Extremity no clubbing, cyanosis or edema Skin no rashes or lesions noted Neuro Sensorium / Orientation: sedated on vent Charges/Coding Procedures Hospitalists Procedures: [id number] Critical Care 1st Hr
--- NOTE | 2023-02-15 07:22 | PCM.PN.HOSP ---
Reason for Visit Reason for Visit: Diagnoses Sepsis, unspecified organism (02/07/23) Non-ST elevation (NSTEMI) myocardial infarction (02/07/23) Atherosclerotic heart disease of [place] coronary artery without angina pectoris (02/07/23) Cardiac arrest, cause unspecified (02/07/23) Paroxysmal atrial fibrillation (02/07/23) Unspecified atrial fibrillation (02/07/23) Heart disease, unspecified (02/07/23) Chronic obstructive pulmonary disease with (acute) exacerbation (02/07/23) Acute respiratory failure with hypoxia (02/07/23) Severe sepsis with septic shock (02/07/23) Subjective Subjective Patient seen remains on the vent. Did fail weaning trial the day before. Family apparently has been going back and forth regarding patient CODE STATUS. Did agree for patient to be made DNR CCA no intubation following extubation however they rescinded her decision Objective Data Objective Data Vital Signs: Vital Signs Temp Pulse Resp BP Pulse Ox O2 Del Method O2 Flow Rate 99.4 F H 109 H 14 121/94 H 92 Mechanical Ventilator 30 02/15/23 06:00 02/15/23 06:56 02/15/23 06:56 02/15/23 06:00 02/15/23 06:56 02/15/23 06:00 02/09/23 08:31 FiO2 35 02/15/23 06:56 Oxygen Flow Rate (L/min) 30 Oxygen Delivery Method Mechanical Ventilator Weight: 66.8 kg Body Mass Index (BMI) 28.9 Intake & Output: Intake and Output for Last 24 Hours 02/13/23 02/14/23 02/15/23 23:59 23:59 23:59 Intake Total 2800.11 / 2812.11 3262.87 / 3600.87 1072.58 / 1072.58 Output Total 1115 / 1115 1010 / 1260 535 / 535 Balance 1685.11 / 1697.11 2252.87 / 2340.87 537.58 / 537.58 Lab / Micro Data 02/15/23 03:30 02/15/23 03:30 Labs: Laboratory Results - last 24 hr 02/14/23 13:42: POC Glucose 157 H 02/14/23 17:49: POC Glucose 158 H 02/14/23 18:57: POC Glucose 170 H 02/14/23 23:59: POC Glucose 205 H 02/15/23 03:30: WBC 18.2 H, RBC 3.67 L, Hgb 10.7 L, Hct 33.5 L, MCV 91.3, MCH 29.2, MCHC 31.9 L, RDW Std Deviation 46.6 H, RDW Coeff of Angie 14.4, Plt Count 374, MPV 11.0, Immature Gran % (Auto) 1.000 H, Neut % (Auto) 91.8 H, Lymph % (Auto) 1.5 L, [place] % (Auto) 5.6, Eos % (Auto) 0.0, Baso % (Auto) 0.1, Absolute Neuts (auto) 16.7 H, Absolute Lymphs (auto) 0.28 L, Nucleated RBC % 0, Differential Comment SCANNED, Sodium 140, Potassium 4.4, Chloride 106, Carbon Dioxide 29.0, Anion Gap 5, BUN 22 H, Creatinine 0.74, Estim Creat Clear Calc 57.34, Est GFR (MDRD) Af Amer 103, Est GFR (MDRD) Non-Af 85, BUN/Creatinine Ratio 29.8 H, Glucose 195 H, Calcium 7.5 L, Phosphorus 3.1, Magnesium 2.1 02/15/23 05:44: POC Glucose 166 H Micro: Microbiology 02/12/23 10:30 Blood Culture (Wb) - Right Forearm Bacteria Detection (PCR) - Final Coag Negative Staph 02/12/23 10:30 Blood Culture (Wb) - Right Forearm Blood Culture - Preliminary Coag Negative Staph 02/12/23 09:50 Blood Culture (Wb) - Central Line Blood Culture - Preliminary No growth in 48 hours. 02/12/23 10:20 Sputum, Induced/Lukens Gram Stain - Final 02/12/23 10:20 Sputum, Induced/Lukens Respiratory Culture - Final Presumptive C albicans 02/08/23 18:15 Blood Culture (Wb) - Right Hand Blood Culture - Final No growth in 5 days. 02/08/23 18:05 Blood Culture (Wb) - Line Draw Blood Culture - Final No growth in 5 days. 02/07/23 17:00 Sputum, Induced/Lukens Gram Stain - Final 02/07/23 17:00 Sputum, Induced/Lukens Respiratory Culture - Final Staphylococcus aureus 02/07/23 21:45 Urine Catheter - Uribe Legionella Antigen - Final 02/07/23 21:45 Urine Catheter - Uribe Streptococcus pneumoniae Antigen (M - Final Streptococcus pneumonia Ag 02/07/23 17:12 Mucosa - Nose Coronavirus COVID-19 PCR - Final 02/07/23 17:12 Mucosa - Nose Respiratory Panel (PCR) - Final Influenza A (Subtype H1) ABG Data ABG results: ABG 02/14/23 08:22 Specimen Type ART Sample Site R Radial pH 7.37 Bicarbonate Actual 28.3 H Total CO2 30 Base Excess 3 H O2 Saturation 91 L O2 % 35.0 ABG pCO2 48.9 H ABG pO2 63 L Marvin Test Positive O2 Delivery Device Adult Vent Vent Mode CPAP/PS POC PEEP 5 Radiography Diagnostic Testing: Radiology Impression Chest X-Ray 02/15/23 05:55 IMPRESSION: Bilateral airspace disease slightly increased with small left pleural effusion likely pneumonia. Asymmetric pulmonary edema less likely. Electronically Signed: Cristine Kunz MD at 7:19 EST , Physical Exam Narrative GENERAL: Patient on the vent HEENT: Atraumatic; normocephalic EYES; Anicteric, Normal Conjunctiva NECK; supple, normal thyroid, RESPIRATORY: Diminished to auscultation CARDIOVASCULAR: Regular S1 S2, GI: soft, normoactive bowel sounds, : No Renal angle tenderness; EXTREMITIES: No edema, no clubbing, MUSCULOSKELETAL: no muscle wasting NEURO: Awake on the vent SKIN: No Rash PSYCH; Flat affect Assessment & Plan Assessment/Plan (1) COPD exacerbation: (2) Acute hypoxemic respiratory failure: PLAN: Plan Patient is a 62-year-old gentleman who was transferred from an outside hospital in respiratory failure. Manage initially with noninvasive ventilation patient later went into cardiac arrest and was successfully resuscitated with ROSC S. Was found to have elevated troponin underwent left heart catheterization which revealed multivessel coronary artery disease. Patient remains on the vent 1. Acute on chronic hypoxic respiratory failure ? Patient failed initial treatment with noninvasive ventilation went into cardiac arrest successfully intubated. Patient has since been managed by pulmonary medicine ? 02/12/2023; patient remains on the vent. Did fail her weaning trial this a.m. ? 02/13/2023; remains on the vent ? 02/14/2023; patient remains on the vent currently undergoing weaning trial ? 02/15/2023; patient seen remains on the vent. Did fail weaning trial the day before. Family apparently has been going back and forth regarding patient CODE STATUS. Did agree for patient to be made DNR CCA no intubation following extubation however they rescinded her decision 2. Cardiac arrest ? Patient rhythm was 1 of V-fib successfully resuscitated using ACLS with ROSC. 3. Acute non-STEMI complicated by cardiac arrest ? Patient underwent successful left heart catheterization which demonstrated multivessel disease. Cardiology recommended evaluation by cardiothoracic surgery. Decision for patient to undergo the evaluation by cardiothoracic surgery deferred to cardiology -2D echo obtained demonstrated EF of 15 to 20% with moderate anterior pericardial effusion 4. Septic shock ? Secondary to influenza 80 and pneumococcal pneumonia. Present on admission. Patient has since been managed with broad-spectrum antibiotic therapy in addition to Tamiflu as well as mechanical ventilation -02/12/2023; patient grew MSSA in the sputum and streptococcal pneumonia antigen in the urine came back positive ? 02/12/2023; Continues to spike fever. Case discussed with contracts representative plan is for patient to be pancultured and antibiotic therapy broadened to include vancomycin to cover for possible MRSA and MDR ? 02/13/2023; patient continues to spike fever. She was pancultured the day prior, results pending ? 02/14/2023; patient repeat blood cultures positive for coagulase negative staph. Repeat blood cultures ordered and if positive will request ARIEL by cardiology 5. Paroxysmal A-fib with RVR ? Patient was started on amiodarone drip and converted back to sinus 6. Essential hypertension ? Per history patient antihypertensives on hold 7. Tobacco dependence ? 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 DVT prophylaxis ? SC Lovenox Time spent in the patient's overall evaluation,decision-making process, review of diagnostic data, adjustment of management, discussion with other providers, nursing nursing and ancillary staff involved in patient's care documentation, 50 Minutes Charges/Coding Visit Charges Inpatient E&M: 945[address] [facility] L3
[2023-02-15] MEDS: Chlorhexidine 15 ML PO ×2 (08:13→20:51)
[2023-02-15] MEDS: Cefepime HCl 1 GM in 0.9% Normal Saline (50mL MB+) 50 ML IV ×2 (08:13→20:49)
[2023-02-15] MEDS: Enoxaparin 60 MG/0.6 ML Syringe SC ×2 (08:13→20:52)
[2023-02-15] MEDS: Clopidogrel Bisulfate 75 MG Tablet GT (08:14)
[2023-02-15] MEDS: Amiodarone 200 MG Tablet PO ×2 (08:14→20:52)
[2023-02-15] MEDS: Metoprolol Tartrate 25 MG Tablet 12.5 MG PO ×2 (08:15→20:52)
[2023-02-15] MEDS: Furosemide 40 MG/4 ML Vial IV ×2 (08:19→17:16)
[2023-02-15] MEDS: Pantoprazole Sodium 40 MG in 0.9% Normal Saline (100mL MB+) 100 ML 330 MG IV (08:20)
[2023-02-15] MEDS: Insulin Glargine-YFGN 100 UNIT/ML Pen 10 UNIT SC (08:29)
[2023-02-15] MEDS: dexMEDEtomidine 400 MCG in 0.9% Normal Saline (100mL Bag) 96 ML 8.40000000000000036 MCG CONT INF (08:58)
--- NOTE | 2023-02-15 09:51 | CASEMGMT ---
Social Work SW participated in ICU rounds, physician would like to have a family meeting. SW called daughter Louann, family meeting set up for tomorrow between 9:30am-10am tomorrow. Louann states that she knows pt does not want a trach but does not want to make that decision without her brother. SW notified physician and RN of meeting time. RN just spoke w/son who expressed frustration w/having a family meeting as they spoke w/physician yesterday. However, the goals of care are not clear from what is documented, does not match what Louann informed JODEE of this morning. SW remains available for support to family. KIANNA Quiñones
[2023-02-15] MEDS: Lisinopril 2.5 MG Tablet PO (11:00)
[2023-02-15] MEDS: Vancomycin HCl 750 MG in 0.9% Normal Saline (250mL Bag) 250 ML 250 MG IV ×2 (11:01→22:47)
[2023-02-15] MEDS: dexMEDEtomidine 400 MCG in 0.9% Normal Saline (100mL Bag) 96 ML 25.1000000000000014 MCG CONT INF ×2 (13:29→17:16)
[2023-02-15 13:52] LABS: Bedside Glucose 166 mg/dL (74-106)
[2023-02-15] MEDS: fentaNYL drip 100 ML 12.5 MCG CONT INF (15:49)
[2023-02-15] MEDS: Vital AF 1.2 Cal Liquid 1,000 ML 45 ML GT (15:51)
[2023-02-15 17:40] LABS: Bedside Glucose 179 mg/dL (74-106)
[2023-02-15] MEDS: Atorvastatin Calcium 80 MG Tablet GT (20:53)
[2023-02-15] MEDS: Senna/Docusate Sodium 1 Tablet 2 TABLET PO (20:53)
[2023-02-15] MEDS: Dexmedetomidine 1,000 mcg in 0.9% NS 240 mL 25.1000000000000014 MCG CONT INF (21:16)
[2023-02-15] MEDS: Acetaminophen 650 MG/20 ML UDC GT (21:24)
[2023-02-15 22:35] LABS: Vancomycin, Trough Level 20.6 ug/mL (5.0-15.0)
--- NOTE | 2023-02-15 23:19 | PHA.PHARE_ITS ---
Consult Antibiotic Management Pharmacy has been consulted to manage selected antibiotic: Vancomycin Type of Intervention Type of Consult: Follow-up Labs Labs: Sodium 140 mmol/L (136-145) 02/15/23 03:30 Potassium 4.4 mmol/L (3.5-5.1) 02/15/23 03:30 Chloride 106 mmol/L (98-107) 02/15/23 03:30 Carbon Dioxide 29.0 mmol/L (21.0-32.0) 02/15/23 03:30 Anion Gap 5 (5-15) 02/15/23 03:30 BUN 22 mg/dL (7-18) H 02/15/23 03:30 Creatinine 0.74 mg/dL (0.55-1.02) 02/15/23 03:30 Est GFR (MDRD) Af Amer 103 mL/min (>60) 02/15/23 03:30 Est GFR (MDRD) Non-Af 85 mL/min (>60) 02/15/23 03:30 BUN/Creatinine Ratio 29.8 RATIO (10-20) H 02/15/23 03:30 Glucose 195 mg/dL (74-106) H 02/15/23 03:30 Vancomycin Trough 20.6 ug/mL (5.0-15.0) H 02/15/23 22:00 Microbiology Microbiology: Microbiology 02/12/23 10:30 Blood Culture (Wb) - Right Forearm Bacteria Detection (PCR) - Final Coag Negative Staph 02/12/23 10:30 Blood Culture (Wb) - Right Forearm Blood Culture - Preliminar y Staphylococcus hominis hominis 02/12/23 09:50 Blood Culture (Wb) - Central Line Blood Culture - Preliminary No growth in 48 hours. 02/12/23 10:20 Sputum, Induced/Lukens Gram Stain - Final 02/12/23 10:20 Sputum, Induced/Lukens Respiratory Culture - Final Presumptive C albicans 02/08/23 18:15 Blood Culture (Wb) - Right Hand Blood Culture - Final No growth in 5 days. 02/08/23 18:05 Blood Culture (Wb) - Line Draw Blood Culture - Final No growth in 5 days. 02/07/23 17:00 Sputum, Induced/Lukens Gram Stain - Final 02/07/23 17:00 Sputum, Induced/Lukens Respiratory Culture - Final Staphylococcus aureus 02/07/23 21:45 Urine Catheter - Uribe Legionella Antigen - Final 02/07/23 21:45 Urine Catheter - Uribe Streptococcus pneumoniae Antigen (M - Final Streptococcus pneumonia Ag 02/07/23 17:12 Mucosa - Nose Coronavirus COVID-19 PCR - Final 02/07/23 17:12 Mucosa - Nose Respiratory Panel (PCR) - Final Influenza A (Subtype H1) Dosing Weight Weight used for dosin.8 kg Estimated Creatinine Clearance Estimated Creatinine Clearance: 57 Goal Trough Goal Trough: 15-20 mcg/mL Pharmacy Plan for Drug Dosing Pharmacy Plan for Drug Dosing: Vancomycin trough draw was 20.6, just slightly over the target range of 15-20. Will continue dosing at 750mg q12h, and will draw another trough level in two days. Pharmacy Service will continue to monitor and adjust dosing as required. Follow-Up Labs Follow-Up Labs: Trough: Vancomycin Date/Time Labs Ordered Labs to be done on [date and time ordered]: 02/17/23 @2200
[2023-02-15] MEDS: Albuterol 2.5 MG/3 ML VIAL.NEB. INHALATION (23:42)
[2023-02-15 23:49] LABS: Bedside Glucose 192 mg/dL (74-106)
[2023-02-15] MEDS: fentaNYL drip 100 ML 15 MCG CONT INF (23:50)
[2023-02-16] VITALS (31 sets, daily range): BP systolic 55–186; BP diastolic 42–137; PULSE 73–153; RESP 12–48; TEMP 38.4–39.2; O2SAT 66–100; BMI 28.7
[2023-02-16 03:16] LABS: Absolute Lymphocyte Count 0.22 X10^3/uL (0.83-4.51); Absolute Neutrophil Count 22.8 X10^3/uL (2.0-7.7); Basophil# 0.04 X10^3/uL; Basophil% 0.2 % (0-1); Hematocrit 30.2 % (37-47); Hemoglobin 9.3 g/dL (12.0-15.0); Lymphocyte # 0.22 X10^3/ul (0.83-4.51); Lymphocyte % 0.9 % (19-41); Mean Corp Hgb Conc 30.8 g/dL (32-36); Mean Corpuscular Hgb 28.4 pg (27.0-32.0); Mean Corpuscular Volume 92.4 fL (81-99); Mean Platelet Vol. 11.3 fl (6.2-12.0); Monocyte# 0.95 X10^3/uL; Monocyte% 3.9 % (0-10); NRBC Flagged by Analyzer 0 % (0-5); Neutrophil # 22.78 X10^3/uL (2.7-7.7); Neutrophil % 93.3 % (47-70); POSITIVE DIFFERENTIAL YES; Platelet Count 413 K/mm3 (150-450); RBC Distribution Width CV 14.1 % (11.6-14.6); RBC Distribution Width SD 45.6 fl (35.1-43.9); Red Blood Count 3.27 M/mm3 (4.2-5.4); White Blood Count 24.4 K/mm3 (4.4-11.0)
[2023-02-16 03:27] LABS: Differential Indicated SCAN CRITERIA MET
[2023-02-16 03:51] LABS: Anion Gap 6 (5-15); BUN 25 mg/dL (7-18); BUN/Creat Ratio 31.2 RATIO (10-20); Calcium,Total 7.5 mg/dL (8.5-10.1); Chloride 104 mmol/L (98-107); EST Glomerular Filtration Rate 77 mL/min (>60); Est Glom Filt Rate - Afr Amer 94 mL/min (>60); Estimated Creatinine Clearance 53.04 ml/min; Glucose 242 mg/dL (74-106); Potassium 3.9 mmol/L (3.5-5.1); Sodium Level 140 mmol/L (136-145)
[2023-02-16 04:21] LABS: Differential Comment SCANNED
[2023-02-16] MEDS: 0.9% Saline Lock 10 ML Syringe IV ×4 (05:05→23:37)
[2023-02-16] MEDS: Miconazole Nitrate 43 GM Bottle 1 APPLIC TOPICAL (05:06)
[2023-02-16] MEDS: cloNIDine HCl 0.2 MG Tablet 0.200000000000000011 MG PO ×2 (05:06→15:17)
[2023-02-16] MEDS: TITRATION PARAMETER CHANGE 1 EACH IV (05:06)
[2023-02-16] MEDS: Insulin Lispro 100 UNIT/ML INSULN.PEN SC ×2 (05:06→11:07)
[2023-02-16] MEDS: CHLORHEXIDINE GLUC 2% CLOTH 1 EACH TOWELETTE TOPICAL (05:09)
[2023-02-16] MEDS: Acetaminophen 650 MG/20 ML UDC GT (05:21)
[2023-02-16 05:30] LABS: Bedside Glucose 248 mg/dL (74-106)
[2023-02-16] MEDS: fentaNYL drip 100 ML 17.5 MCG CONT INF (06:35)
[2023-02-16] MEDS: Dexmedetomidine 1,000 mcg in 0.9% NS 240 mL 24.8999999999999986 MCG CONT INF (06:36)
[2023-02-16] MEDS: Ipratropium/Albuterol Sulfate 3 ML AMPUL.NEB INHALATION ×3 (07:10→15:38)
--- NOTE | 2023-02-16 07:24 | PN.CC_ITS ---
Assessment & Plan Assessment/Plan (1) COPD exacerbation: (2) NSTEMI (non-ST elevated myocardial infarction): (3) Acute hypoxemic respiratory failure: (4) Cardiac arrest: PLAN: Plan RECOMMENDATIONS: 1. Continue assist-control mode mechanical ventilation. Wean FiO2 and PEEP to maintain saturations at or above 90%. 2. Continue antimicrobials. 3. Continue fentanyl and Precedex for sedation. 4. Continue IV Solu-Medrol as ordered. 5. Ongoing diuresis as tolerated by hemodynamics and renal function. 6. Plan for family meeting today to discuss goals of care. IMPRESSIONS: 1. Acute on chronic hypoxemic respiratory failure The patient has a baseline of reported COPD of unknown severity along with chronic hypoxemic respiratory failure with a baseline requirement of 2 L/min. She presented with worsening shortness of breath in the setting of influenza A and pneumococcal pneumonia. The patient was ultimately intubated. Plan to continue assist-control mode of mechanical ventilation and wean FiO2 and PEEP to maintain saturations at or above 90%. The patient will be continued on scheduled bronchodilators, steroids, and antibiotics. Plan for ongoing diuresis as tolerated by hemodynamics and renal function. The patient continues to fail spontaneous breathing trials. Therefore, plan to engage in a family meeting today to discuss goals of care. 2. Septic shock Resolved. The patient presented to the hospital with sepsis due to influenza A, pneumococcal and MSSA pneumonia with acute sepsis related organ dysfunction as evidenced by lactic acidemia and respiratory failure requiring invasive mechanical ventilatory support. Continue supportive care along with antimicrobials. 3. NSTEMI/cardiac arrest The patient's hospital course has been complicated by a V-fib cardiac arrest with successful ROSC. The patient underwent cardiac catheterization which r evealed multivessel coronary disease, for which evaluation by CT surgery was recommended. 4. History of tobacco dependency/hypertension/history of TIA Complicates care, management, recovery and prognosis. Continue supportive measures as noted above. Continue tube feeding as tolerated. UPDATE: I met with the patient's family this afternoon at the bedside and discussed overall goals of care. The patient was alert during this conversation and was able to shake her head yes and no. Options for moving forward were discussed including the possibility of tracheostomy and PEG tube placement. The patient's family was adamant that she would not want the aforementioned interventions performed. They are in agreement that the patient should be extubated, with plans to transition her to DNR CCA without intubation. If the patient were to n ot do well following extubation, initiation of comfort care measures would be considered. TIME: 42 minutes of critical care time, independent of procedures, was spent addres sing the patient's acute on chronic hypoxemic respiratory failure, septic shock, NSTEMI/cardiac arrest, review of all data and collaboration with the care team. Subjective Subjective The patient was seen and examined at the bedside this morning. Events from the last 24 hours have been reviewed. The patient has been febrile overnight, likely the consequence of Precedex. She remains on assist-control mode mechanical ventilation with an FiO2 requirement of 40%. The patient again failed her spontaneous breathing trial this morning. There are tentative plans for a family meeting this morning to discuss goals of care. The patient is documented to be overall net +12.9 L for the hospitalization. White count remains elevated at 24,000. Objective Data Objective Data The patient's most recent lab work, culture data and imaging studies have all been personally reviewed. Surface echocardiogram from February 08 demonstrated severe LV systolic dysfunction with an ejection fraction of 15 to 20%. Lower extremity Doppler study from February 12 was negative for DVT. MSSA was isolated from sputum culture on February 07. Pneumococcal urinary antigen was also positive on February 07. Influenza a screen was positive on February 07. Vital Signs: Vital Signs Temp Pulse Resp BP Pulse Ox O2 Del Method O2 Flow Rate 102.5 F H 85 15 118/62 94 Mechanical Ventilator 30 02/16/23 07:00 02/16/23 07:11 02/16/23 07:11 02/16/23 07:00 02/16/23 07:11 02/16/23 07:00 02/09/23 08:31 FiO2 40 02/16/23 07:11 Oxygen Flow Rate (L/min) 30 Oxygen Delivery Method Mechanical Ventilator Weight: 146 lb 2.664 oz Body Mass Index (BMI) 28.7 Intake & Output: Intake and Output for Last 24 Hours 02/14/23 02/15/23 02/16/23 23:59 23:59 23:59 Intake Total 3262.87 / 3600.87 3075.05 / 3100.15 924.44 / 924.44 Output Total 1010 / 1260 2460 / 2460 250 / 250 Balance 2252.87 / 2340.87 615.05 / 640.15 674.44 / 674.44 Lab / Micro Data Attestation: I reviewed the patient's lab results. 02/16/23 03:05 02/16/23 03:05 Labs: Laboratory Results - last 24 hr 02/15/23 11:02: POC Glucose 166 H 02/15/23 17:15: POC Glucose 179 H 02/15/23 22:00: Vancomycin Trough 20.6 H 02/15/23 23:29: POC Glucose 192 H 02/16/23 03:05: WBC 24.4 H, RBC 3.27 L, Hgb 9.3 L, Hct 30.2 L, MCV 92.4, MCH 28.4, MCHC 30.8 L, RDW Std Deviation 45.6 H, RDW Coeff of Angie 14.1, Plt Count 413, MPV 11.3, Immature Gran % (Auto) 1.700 H, Neut % (Auto) 93.3 H, Lymph % (Auto) 0.9 L, [place] % (Auto) 3.9, Eos % (Auto) 0.0, Baso % (Auto) 0.2, Absolute Neuts (auto) 22.8 H, Absolute Lymphs (auto) 0.22 L, Nucleated RBC % 0, Differential Comment SCANNED, Sodium 140, Potassium 3.9, Chloride 104, Carbon Dioxide 30.0, Anion Gap 6, BUN 25 H, Creatinine 0.80, Estim Creat Clear Calc 53.04, Est GFR (MDRD) Af Amer 94, Est GFR (MDRD) Non-Af 77, BUN/Creatinine Ratio 31.2 H, Glucose 242 H, Calcium 7.5 L 02/16/23 05:04: POC Glucose 248 H Micro: Microbiology 02/12/23 10:30 Blood Culture (Wb) - Right Forearm Bacteria Detection (PCR) - Final Coag Negative Staph 02/12/23 10:30 Blood Culture (Wb) - Right Forearm Blood Culture - Preliminary Staphylococcus hominis hominis 02/12/23 09:50 Blood Culture (Wb) - Central Line Blood Culture - Preliminary No growth in 48 hours. 02/12/23 10:20 Sputum, Induced/Lukens Gram Stain - Final 02/12/23 10:20 Sputum, Induced/Lukens Respiratory Culture - Final Presumptive C albicans 02/08/23 18:15 Blood Culture (Wb) - Right Hand Blood Culture - Final No growth in 5 days. 02/08/23 18:05 Blood Culture (Wb) - Line Draw Blood Culture - Final No growth in 5 days. 02/07/23 17:00 Sputum, Induced/Lukens Gram Stain - Final 02/07/23 17:00 Sputum, Induced/Lukens Respiratory Culture - Final Staphylococcus aureus 02/07/23 21:45 Urine Catheter - Uribe Legionella Antigen - Final 02/07/23 21:45 Urine Catheter - Uribe Streptococcus pneumoniae Antigen (M - Final Streptococcus pneumonia Ag 02/07/23 17:12 Mucosa - Nose Coronavirus COVID-19 PCR - Final 02/07/23 17:12 Mucosa - Nose Respiratory Panel (PCR) - Final Influenza A (Subtype H1) ABG Data ABG results: ABG 02/14/23 08:22 Specimen Type ART Sample Site R Radial pH 7.37 Bicarbonate Actual 28.3 H Total CO2 30 Base Excess 3 H O2 Saturation 91 L O2 % 35.0 ABG pCO2 48.9 H ABG pO2 63 L Marvin Test Positive O2 Delivery Device Adult Vent Vent Mode CPAP/PS POC PEEP 5 Physical Exam Const Constitutional Narrative: Intubated, sedated and mechanically ventilated. However, the patient surprisingly alert despite being sedated. HEENT normocephalic and head/scalp atraumatic Mouth: endotracheal tube in place and OG tube in place Eyes PERRL and EOMs intact bilaterally Neck supple General: trachea midline Chest inspection of chest normal Resp Auscultation: diminished lung sounds; Negative for rales, rhonchi or wheezes Cardio regular rate, regular rhythm, S1 normal heart sound and S2 normal heart sound GI normal to inspection, nondistended, normoactive bowel sounds Extremity no clubbing, cyanosis or edema Skin no rashes or lesions noted Neuro Sensorium / Orientation: sedated on vent Charges/Coding Procedures Hospitalists Procedures: 54104 Critical Care 1st Hr
[2023-02-16] MEDS: Pantoprazole Sodium 40 MG in 0.9% Normal Saline (100mL MB+) 100 ML 330 MG IV (07:49)
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
[2023-02-16] MEDS: Chlorhexidine 15 ML PO (07:51)
[2023-02-16] MEDS: Cefepime HCl 1 GM in 0.9% Normal Saline (50mL MB+) 50 ML IV (07:52)
[2023-02-16] MEDS: Amiodarone 200 MG Tablet PO (07:52)
[2023-02-16] MEDS: Clopidogrel Bisulfate 75 MG Tablet GT (07:52)
[2023-02-16] MEDS: Insulin Glargine-YFGN 100 UNIT/ML Pen 10 UNIT SC (07:52)
[2023-02-16] MEDS: Enoxaparin 60 MG/0.6 ML Syringe SC (07:52)
[2023-02-16] MEDS: Senna/Docusate Sodium 1 Tablet 2 TABLET PO (07:53)
[2023-02-16] MEDS: Polyethylene Glycol 3350 17 GM PACKET GT (08:04)
[2023-02-16] MEDS: metOLazone 5 MG Tablet PO (08:55)
--- NOTE | 2023-02-16 09:34 | CASEMGMT ---
SW went to ICU for family meeting. However, family called in and said they are going to be late due to the weather. Family was thinking they might be in around 11a. Katelyn EISENBERG
[2023-02-16] MEDS: Lisinopril 2.5 MG Tablet PO (10:03)
[2023-02-16] MEDS: Furosemide 40 MG/4 ML Vial IV (10:03)
[2023-02-16] MEDS: Vancomycin HCl 750 MG in 0.9% Normal Saline (250mL Bag) 250 ML 250 MG IV (10:04)
[2023-02-16] MEDS: Metoprolol Tartrate 25 MG Tablet 12.5 MG PO (11:03)
[2023-02-16 11:30] LABS: Bedside Glucose 182 mg/dL (74-106)
--- NOTE | 2023-02-16 12:45 | NURSING ---
extubated at this time via RT Cally and this RN at bedside, OG D/C'd, restraints off, oral suction, placed on 6L NC, family at bedside.
--- NOTE | 2023-02-16 17:11 | NURSING ---
attempted bipap 14/6 at 40% for approximately 30 minutes, patient communicated to daughter that she was done with all of this. Daughter at desk to speak with this RN. This RN and ARIEL almonte at bedside to confirm with patient her wishes. In depth discussion regarding code status of DNRCCA-DNI and DNRCC, patient wishes to stop aggressive treatment and continue with DNRCC. Notified Dr. Hoff and ordered received. Dr. Bhatt made aware.
[2023-02-16] MEDS: Morphine 4 MG/ML Syringe IV ×4 (17:19→23:36)
[2023-02-16] MEDS: LORazepam 2 MG/ML Syringe IV ×4 (17:19→23:36)
[2023-02-17] MEDS: 0.9% Saline Lock 10 ML Syringe IV ×2 (01:09→02:21)
[2023-02-17] MEDS: Morphine 4 MG/ML Syringe IV ×2 (01:09→02:20)
[2023-02-17] MEDS: LORazepam 2 MG/ML Syringe IV ×2 (01:10→02:20)
--- NOTE | 2023-02-17 02:44 | NURSING ---
Time of 225, verified with Valarie Daniel RN. Toni Anson called and updated on pt . Dr. Velazquez notified as well.
--- NOTE | 2023-02-17 07:10 | PCM.DEATH ---
Preliminary Cause of Preliminary Cause of Preliminary Cause of : Acute on chronic hypoxic respiratory failure Septic shock secondary to influenza A and pneumococcal pneumonia infection Date of Admission: 02/07/23 Date of : 02/17/23 Principle Diagnosis Acute on chronic hypoxic respiratory failure Status postcardiac arrest with successful resuscitation with ACLS and ROSC Septic shock Acute influenza A infection Pneumococcal pneumonia Acute non-STEMI Paroxysmal A-fib with RVR Problem List: Active and Suspected Problems (Updated 02/13/23 @ 11:[address] Jose Martin Witt MD) Paroxysmal atrial fibrillation (Acute) Transient atrial fibrillation (Acute) Septic shock (Acute) Left ventricular systolic dysfunction (LVSD) (Acute) Coronary artery disease (Acute) NSTEMI (non-ST elevated myocardial infarction) (Acute) Acute hypoxemic respiratory failure (Acute) Cardiac arrest (Acute) Hospital Course Patient is a 62-year-old gentleman who was transferred from an outside hospital in respiratory failure. Manage initially with noninvasive ventilation patient later went into cardiac arrest and was successfully resuscitated with ROSC S. Was found to have elevated troponin underwent left heart catheterization which revealed multivessel coronary artery disease.. Patient was intubated following her cardiac arrest and weaned off the vent on 02/16/2023. CODE STATUS was changed to DNR CC. Comfort care palliative measures were initiated and patient was found without spontaneous breathing as well as heart tones on 02/17/2023 at 03/30/2025. Patient was pronounced . Visit Charges Inpatient E&M: 28243 Disch Hosp
== END 2023-02-17 06:00 | DRG 720 ==
LOC: PCU 15:54 → ICU 16:02
PROVIDERS: Family Medicine; Internal Medicine; Internal Medicine Critical Care Medicine; Admitting Provider Internal Medicine; PCP Nurse Practitioner Family; Visit Provider Internal Medicine
DX: A40.3 Sepsis due to Streptococcus pneumoniae (principal); J96.21 Acute and chronic respiratory failure with hypoxia; J13 Pneumonia due to Streptococcus pneumoniae; R65.21 Severe sepsis with septic shock; I21.4 Non-ST elevation (NSTEMI) myocardial infarction; J10.08 Influenza due to other identified influenza virus with other specified pneumonia; E87.20 Acidosis, unspecified; I31.39 Other pericardial effusion (noninflammatory); I48.0 Paroxysmal atrial fibrillation; J44.0 Chronic obstructive pulmonary disease with (acute) lower respiratory infection; J44.1 Chronic obstructive pulmonary disease with (acute) exacerbation; I49.01 Ventricular fibrillation; I47.20 Ventricular tachycardia, unspecified; I10 Essential (primary) hypertension; I95.2 Hypotension due to drugs; I25.10 Atherosclerotic heart disease of native coronary artery without angina pectoris; L30.4 Erythema intertrigo; I51.81 Takotsubo syndrome; Z66 Do not resuscitate; Z79.82 Long term (current) use of aspirin; Z79.51 Long term (current) use of inhaled steroids; Z99.81 Dependence on supplemental oxygen; Z87.891 Personal history of nicotine dependence; Z86.73 Personal history of transient ischemic attack (TIA), and cerebral infarction without residual deficits
CPT/HCPCS: 31500; 31720; 36600; 70450; 71045; 71275; 80048; 80053; 80076; 80202; 82330; 82550; 82803; 82962; 83036; 83605; 83735; 84100; 84145; 84439; 84443; 84478; 84484; 85025; 85610; 85730; 87040; 87070; 87077; 87149; 87186; 87205; 87449; 87633; 87635; 92950; 93005; 93306; 93308; 93454; 93970; 94002; 94003; 94640; 94660; 94762; 95819; 97110; 97162; 97163; 97166; 97530; 97535; 97803; J7030; J7040; J7050; P9047; Q9957; Q9967; A4216; C1751; C1769; C1894; C8929; J1940